=== PATIENT | male | born 1980 | race Caucasian/White ===

== ENCOUNTER 2021-01-06 09:47 | Outpatient (REF) | payer BC, MEDICAID, SELFPAY | END 2021-01-06 09:48 | disposition home or self-care (01) | LOC: HO.LAB 09:47 | PROVIDERS: PCP Internal Medicine; Visit Provider Internal Medicine | DX: Z20.822 Contact with and (suspected) exposure to COVID-19 (principal) | CPT/HCPCS: 36415; C9803; U0003; U0005 ==

== ENCOUNTER 2021-04-01 14:21 | Outpatient (REF) | payer BC, MEDICAID, SELFPAY ==
--- NOTE | ~2021-04-01 | CT_ITS ---
EXAMINATION: CT ANGIOGRAM CHEST CLINICAL INFORMATION: Aortic disorder COMPARISON: None TECHNIQUE: Multiple axial images were obtained through the chest after the administration of 50 mL of Omnipaque 350 intravenous contrast. Extensive vascular post-processing including two-dimensional and three-dimensional reformatted images were created and reviewed on an independent workstation. This CT examination was performed using dose optimization techniques as appropriate, variously including the following: *Automated exposure control *Adjustment of mA and/or kV according to patient size (this includes techniques or standardized protocols for targeted exams where dose is matched to indication/reason for exam; i.e. extremities or head) *Use of iterative reconstruction technique DLP: 161 mGy-cm FINDINGS: The ascending aorta measures 4.9 x 4.8 cm just above the root on axial image 26/5. The cervicocerebral arch is normal three-vessel branching. The descending thoracic aorta measures 2.5 x 2.5 cm. The heart size is normal. The central trachea and bronchi are widely patent. The thyroid lobes are symmetrical and normal. No pericardial effusion seen. No abnormal size mediastinal or hilar lymph nodes seen. The lungs are well-expanded and clear of acute process. There is no pulmonary nodule, mass or consolidation. No groundglass density seen. There is no pleural effusion or thickening. The axilla and chest wall appears unremarkable. Imaging through the upper abdomen reveals visualized liver, spleen, pancreas and bilateral adrenal glands are unremarkable. Bone windows reveal no lytic or sclerotic process. CT/CT angio chest IMPRESSION: Ascending aortic aneurysm. Normal 3 vessel thoracic arch branching. No evidence of PE. Clear lungs.
[2021-04-01] MEDS: iohexoL 350 MG/ML 100 ML INFUS..BTL IV (15:12)
== END 2021-04-01 14:22 | disposition home or self-care (01) ==
LOC: HO.CT 14:21
PROVIDERS: PCP Internal Medicine; Visit Provider Internal Medicine Cardiovascular Disease
DX: I77.9 Disorder of arteries and arterioles, unspecified (principal)
CPT/HCPCS: 71275; Q9967

== ENCOUNTER → 2021-05-06 15:24 | Outpatient (REF) | payer BC, MEDICAID, SELFPAY | LOC: HO.SL 15:24 | PROVIDERS: PCP Internal Medicine Rheumatology; Visit Provider Internal Medicine Cardiovascular Disease | DX: R06.83 Snoring (principal); I77.9 Disorder of arteries and arterioles, unspecified; I10 Essential (primary) hypertension | CPT/HCPCS: 95806 ==

== ENCOUNTER → 2021-12-09 08:40 | Outpatient (BNVA) | payer BC, MEDICAID, SELFPAY | PROVIDERS: PCP Internal Medicine Rheumatology; Visit Provider Internal Medicine | DX: Z95.2 Presence of prosthetic heart valve (principal); Z51.81 Encounter for therapeutic drug level monitoring; Z79.01 Long term (current) use of anticoagulants | CPT/HCPCS: 85610; 99202 ==

== ENCOUNTER → 2021-12-23 08:26 | Outpatient (BNVA) | payer BC, MEDICAID, SELFPAY | PROVIDERS: PCP Internal Medicine; Visit Provider Internal Medicine | DX: Z95.2 Presence of prosthetic heart valve (principal); Z51.81 Encounter for therapeutic drug level monitoring; Z79.01 Long term (current) use of anticoagulants | CPT/HCPCS: 85610; 99211 ==

== ENCOUNTER → 2021-12-28 08:34 | Outpatient (BNVA) | payer BC, MEDICAID, SELFPAY | PROVIDERS: PCP Internal Medicine; Visit Provider Internal Medicine | DX: Z95.2 Presence of prosthetic heart valve (principal); Z51.81 Encounter for therapeutic drug level monitoring; Z79.01 Long term (current) use of anticoagulants | CPT/HCPCS: 85610; 99211 ==

== ENCOUNTER → 2022-01-06 08:18 | Outpatient (BNVA) | payer BC, MEDICAID, SELFPAY | PROVIDERS: PCP Internal Medicine; Visit Provider Internal Medicine | DX: Z95.2 Presence of prosthetic heart valve (principal); Z51.81 Encounter for therapeutic drug level monitoring; Z79.01 Long term (current) use of anticoagulants | CPT/HCPCS: 85610; 99211 ==

== ENCOUNTER → 2022-01-20 08:21 | Outpatient (BNVA) | payer BC, MEDICAID, SELFPAY | PROVIDERS: PCP Internal Medicine; Visit Provider Internal Medicine | DX: Z95.2 Presence of prosthetic heart valve (principal); Z51.81 Encounter for therapeutic drug level monitoring; Z79.01 Long term (current) use of anticoagulants | CPT/HCPCS: 85610; 99211 ==

== ENCOUNTER → 2022-02-08 08:17 | Outpatient (BNVA) | payer BC, MEDICAID, SELFPAY | PROVIDERS: PCP Internal Medicine; Visit Provider Internal Medicine | DX: Z95.2 Presence of prosthetic heart valve (principal); Z79.01 Long term (current) use of anticoagulants; Z51.81 Encounter for therapeutic drug level monitoring | CPT/HCPCS: 85610; 99211 ==

== ENCOUNTER → 2022-03-03 08:42 | Outpatient (BNVA) | payer BC, MEDICAID, SELFPAY | PROVIDERS: PCP Internal Medicine; Visit Provider Internal Medicine | DX: Z95.2 Presence of prosthetic heart valve (principal); Z79.01 Long term (current) use of anticoagulants; Z51.81 Encounter for therapeutic drug level monitoring | CPT/HCPCS: 85610; 99211 ==

== ENCOUNTER → 2022-03-24 08:39 | Outpatient (BNVA) | payer BC, MEDICAID, SELFPAY | PROVIDERS: PCP Internal Medicine; Visit Provider Internal Medicine | DX: Z95.2 Presence of prosthetic heart valve (principal); Z79.01 Long term (current) use of anticoagulants; Z51.81 Encounter for therapeutic drug level monitoring | CPT/HCPCS: 85610; 99211 ==

== ENCOUNTER → 2022-04-07 08:57 | Outpatient (BNVA) | payer BC, MEDICAID, SELFPAY | PROVIDERS: PCP Internal Medicine; Visit Provider Internal Medicine | DX: Z95.2 Presence of prosthetic heart valve (principal); Z79.01 Long term (current) use of anticoagulants; Z51.81 Encounter for therapeutic drug level monitoring | CPT/HCPCS: 85610; 99211 ==

== ENCOUNTER → 2022-04-21 08:50 | Outpatient (BNVA) | payer BC, MEDICAID, SELFPAY | PROVIDERS: PCP Internal Medicine; Visit Provider Internal Medicine | DX: Z95.2 Presence of prosthetic heart valve (principal); Z79.01 Long term (current) use of anticoagulants; Z51.81 Encounter for therapeutic drug level monitoring | CPT/HCPCS: 85610; 99211 ==

== ENCOUNTER → 2022-05-12 08:07 | Outpatient (BNVA) | payer BC, MEDICAID, SELFPAY | PROVIDERS: PCP Internal Medicine; Visit Provider Internal Medicine | DX: Z95.2 Presence of prosthetic heart valve (principal); Z51.81 Encounter for therapeutic drug level monitoring; Z79.01 Long term (current) use of anticoagulants | CPT/HCPCS: 85610; 99211 ==

== ENCOUNTER → 2022-05-26 08:41 | Outpatient (BNVA) | payer BC, MEDICAID, SELFPAY | PROVIDERS: PCP Internal Medicine; Visit Provider Internal Medicine | DX: Z95.2 Presence of prosthetic heart valve (principal); Z51.81 Encounter for therapeutic drug level monitoring; Z79.01 Long term (current) use of anticoagulants | CPT/HCPCS: 85610; 99211 ==

== ENCOUNTER → 2022-06-09 08:36 | Outpatient (BNVA) | payer BC, MEDICAID, SELFPAY | PROVIDERS: PCP Internal Medicine; Visit Provider Internal Medicine | DX: Z95.2 Presence of prosthetic heart valve (principal); Z51.81 Encounter for therapeutic drug level monitoring; Z79.01 Long term (current) use of anticoagulants | CPT/HCPCS: 85610; 99211 ==

== ENCOUNTER → 2022-06-23 08:47 | Outpatient (BNVA) | payer BC, MEDICAID, SELFPAY | PROVIDERS: PCP Internal Medicine; Visit Provider Internal Medicine | DX: Z95.2 Presence of prosthetic heart valve (principal); Z51.81 Encounter for therapeutic drug level monitoring; Z79.01 Long term (current) use of anticoagulants | CPT/HCPCS: 85610; 99211 ==

== ENCOUNTER → 2022-07-07 08:42 | Outpatient (BNVA) | payer BC, MEDICAID, SELFPAY | PROVIDERS: PCP Internal Medicine; Visit Provider Internal Medicine | DX: Z95.2 Presence of prosthetic heart valve (principal); Z51.81 Encounter for therapeutic drug level monitoring; Z79.01 Long term (current) use of anticoagulants | CPT/HCPCS: 85610; 99211 ==

== ENCOUNTER → 2022-07-28 08:47 | Outpatient (BNVA) | payer BC, MEDICAID, SELFPAY | PROVIDERS: PCP Internal Medicine; Visit Provider Internal Medicine | DX: Z95.2 Presence of prosthetic heart valve (principal); Z51.81 Encounter for therapeutic drug level monitoring; Z79.01 Long term (current) use of anticoagulants | CPT/HCPCS: 85610; 99211 ==

== ENCOUNTER → 2022-08-18 08:42 | Outpatient (BNVA) | payer BC, MEDICAID, SELFPAY | PROVIDERS: PCP Internal Medicine; Visit Provider Internal Medicine | DX: Z95.2 Presence of prosthetic heart valve (principal); Z79.01 Long term (current) use of anticoagulants; Z51.81 Encounter for therapeutic drug level monitoring | CPT/HCPCS: 85610; 99211 ==

== ENCOUNTER → 2022-09-22 08:40 | Outpatient (BNVA) | payer BC, MEDICAID, SELFPAY | PROVIDERS: PCP Internal Medicine; Visit Provider Internal Medicine | DX: Z95.2 Presence of prosthetic heart valve (principal); Z79.01 Long term (current) use of anticoagulants; Z51.81 Encounter for therapeutic drug level monitoring | CPT/HCPCS: 85610; 99211 ==

== ENCOUNTER → 2022-10-13 08:39 | Outpatient (BNVA) | payer BC, MEDICAID, SELFPAY | PROVIDERS: PCP Internal Medicine; Visit Provider Internal Medicine | DX: Z95.2 Presence of prosthetic heart valve (principal); Z51.81 Encounter for therapeutic drug level monitoring; Z79.01 Long term (current) use of anticoagulants | CPT/HCPCS: 85610; 99211 ==

== ENCOUNTER → 2022-11-03 08:42 | Outpatient (BNVA) | payer BC, MEDICAID, SELFPAY | PROVIDERS: PCP Internal Medicine; Visit Provider Internal Medicine | DX: Z95.2 Presence of prosthetic heart valve (principal); Z79.01 Long term (current) use of anticoagulants; Z51.81 Encounter for therapeutic drug level monitoring | CPT/HCPCS: 85610; 99211 ==

== ENCOUNTER → 2022-11-17 08:49 | Outpatient (BNVA) | payer BC, MEDICAID, SELFPAY | PROVIDERS: PCP Internal Medicine; Visit Provider Internal Medicine | DX: Z95.2 Presence of prosthetic heart valve (principal); Z79.01 Long term (current) use of anticoagulants; Z51.81 Encounter for therapeutic drug level monitoring | CPT/HCPCS: 85610; 99211 ==

== ENCOUNTER → 2022-12-01 08:45 | Outpatient (BNVA) | payer BC, MEDICAID, SELFPAY | PROVIDERS: PCP Internal Medicine; Visit Provider Internal Medicine | DX: Z95.2 Presence of prosthetic heart valve (principal); Z51.81 Encounter for therapeutic drug level monitoring; Z79.01 Long term (current) use of anticoagulants | CPT/HCPCS: 85610 ==

== ENCOUNTER → 2022-12-22 08:51 | Outpatient (BNVA) | payer BC, MEDICAID, SELFPAY | PROVIDERS: PCP Internal Medicine; Visit Provider Internal Medicine | DX: Z95.2 Presence of prosthetic heart valve (principal); Z51.81 Encounter for therapeutic drug level monitoring; Z79.01 Long term (current) use of anticoagulants | CPT/HCPCS: 85610; 99211 ==

== ENCOUNTER → 2023-01-12 07:59 | Outpatient (BNVA) | payer BC, MEDICAID, SELFPAY | PROVIDERS: PCP Internal Medicine; Visit Provider Internal Medicine | DX: Z95.2 Presence of prosthetic heart valve (principal); Z51.81 Encounter for therapeutic drug level monitoring; Z79.01 Long term (current) use of anticoagulants | CPT/HCPCS: 85610; 99211 ==

== ENCOUNTER → 2023-02-09 09:11 | Outpatient (BNVA) | payer BC, MEDICAID, SELFPAY | PROVIDERS: PCP Internal Medicine; Visit Provider Internal Medicine | DX: Z95.2 Presence of prosthetic heart valve (principal); Z51.81 Encounter for therapeutic drug level monitoring; Z79.01 Long term (current) use of anticoagulants | CPT/HCPCS: 85610; 99211 ==

== ENCOUNTER → 2023-02-18 08:44 | Outpatient (BNVA) | payer BC, MEDICAID, SELFPAY | PROVIDERS: PCP Internal Medicine; Visit Provider Internal Medicine | DX: Z95.2 Presence of prosthetic heart valve (principal); Z51.81 Encounter for therapeutic drug level monitoring; Z79.01 Long term (current) use of anticoagulants | CPT/HCPCS: 85610; 99211 ==

== ENCOUNTER → 2023-03-02 08:51 | Outpatient (BNVA) | payer BC, MEDICAID, SELFPAY | PROVIDERS: PCP Internal Medicine; Visit Provider Internal Medicine | DX: Z95.2 Presence of prosthetic heart valve (principal); Z51.81 Encounter for therapeutic drug level monitoring; Z79.01 Long term (current) use of anticoagulants | CPT/HCPCS: 85610; 99211 ==

== ENCOUNTER → 2023-03-23 08:51 | Outpatient (BNVA) | payer BC, MEDICAID, SELFPAY | PROVIDERS: PCP Internal Medicine; Visit Provider Internal Medicine | DX: Z51.81 Encounter for therapeutic drug level monitoring (principal); Z79.01 Long term (current) use of anticoagulants; Z95.2 Presence of prosthetic heart valve | CPT/HCPCS: 85610; 99211 ==

== ENCOUNTER → 2023-04-13 08:51 | Outpatient (BNVA) | payer BC, OTHER, SELFPAY | PROVIDERS: PCP Internal Medicine; Visit Provider Internal Medicine | DX: Z95.2 Presence of prosthetic heart valve (principal); Z51.81 Encounter for therapeutic drug level monitoring; Z79.01 Long term (current) use of anticoagulants | CPT/HCPCS: 85610; 99211 ==

== ENCOUNTER → 2023-05-11 09:34 | Outpatient (BNVA) | payer BC, OTHER, SELFPAY | PROVIDERS: PCP Internal Medicine; Visit Provider Internal Medicine | DX: Z95.2 Presence of prosthetic heart valve (principal); Z51.81 Encounter for therapeutic drug level monitoring; Z79.01 Long term (current) use of anticoagulants | CPT/HCPCS: 85610; 99211 ==

== ENCOUNTER 2023-06-08 08:59 | Outpatient (AMB) | payer BC, MEDICAID, SELFPAY ==
[2023-06-08 09:10] LABS: Prothrombin Time Whole Bld POC 34.3 sec (11.1-13.5); ~PT, ~INR - Anti Coag Clinic 2.9 (0.9-1.1)
--- NOTE | 2023-06-08 09:13 | MHC.OFFVISCO ---
Intake Intake Visit Reasons: Anticoagulation Allergies No Known Allergies Allergy (Verified 06/08/23 09:04) Medication List - Last Reconciled 06/08/23 by Aislinn Lopez, RN metoprolol tartrate 50 mg PO BID warfarin 4 mg See Protocol PO DAILY Nursing Note NO CP,SOB,DIET/MED CHANGES,FALLS OR SX OF BLEEDING. CONTINUE PRESENT DOSE AND FOLLOW-UP IN WEEKS GOOD UNDERSTANDING OF DOSING INSTRL. Anti-Coag Initial Assessment Social Hx Patient Tobacco Use Status: Never used Tobacco alcohol intake: current Alcohol intake frequency: a few times a week Cardiovascular Hx: Other (PALPITATIONS, AORTIC INSUFF, ATRIAL FLUTTER, CARDIOVERSION, AORTIC VALVE REPLACE,PVD) Lung Disease HX: Other (SLEEP APNEA) GI Hx: Other (RECTAL SURG) Cancer HX: No Psych. Illness/Depression: No Coding Level of Care Code Est Patient Level 1 Diagnoses Current use of anticoagulant therapy Z79.01 Assessment & Plan Assessment & Plan (1) Current use of anticoagulant therapy: Code(s): Z79.01 - intermediate (current) use of anticoagulants Category: Medical
== END 2023-06-08 09:15 | disposition home or self-care (01) ==
LOC: HO.ACS 08:59
PROVIDERS: PCP Internal Medicine; Visit Provider Internal Medicine
DX: Z79.01 Long term (current) use of anticoagulants (principal)

== ENCOUNTER → 2023-06-08 08:59 | Outpatient (BNVA) | payer BC, OTHER, SELFPAY | PROVIDERS: PCP Internal Medicine; Visit Provider Internal Medicine | DX: Z51.81 Encounter for therapeutic drug level monitoring (principal); Z79.01 Long term (current) use of anticoagulants; Z95.2 Presence of prosthetic heart valve | CPT/HCPCS: 85610; 99211 ==

== ENCOUNTER 2023-07-05 15:18 | Outpatient (AMB) | payer BC, MEDICAID, SELFPAY ==
--- NOTE | 2023-07-05 15:24 | MHC.OFFVISCO ---
Intake Intake Visit Reasons: Anticoagulation Allergies No Known Allergies Allergy (Verified 07/05/23 15:18) Medication List - Last Reconciled 07/05/23 by Karolina Mcfadden RN metoprolol tartrate 50 mg PO BID warfarin 4 mg See Protocol PO DAILY Nursing Note INR 4.0-?? out of therapeutic range Medications and supplements reviewed Patient status: pt states missed a dose last week and dose adjusted, also had tylenol for headache last week Medications or supplements: no changes Diet: good Denies any signs and symptoms of bleeding or clotting or unusual bruising Bleeding, bruising, clotting discussed Nutritional guidance given: eat greens today and tomm, no reds for 2 days Dose: already took warfarin today, reduce tomm to 2mg then cont 4mg x 3 ,6mg x 4 F/U INR Date : 2 weeks Patient verbalizing understanding of instructions given. Anti-Coag Initial Assessment Social Hx Patient Tobacco Use Status: Never used Tobacco alcohol intake: current Alcohol intake frequency: a few times a week Cardiovascular Hx: Other (PALPITATIONS, AORTIC INSUFF, ATRIAL FLUTTER, CARDIOVERSION, AORTIC VALVE REPLACE,PVD) Lung Disease HX: Other (SLEEP APNEA) GI Hx: Other (RECTAL SURG) Cancer HX: No Psych. Illness/Depression: No Coding Level of Care Code Est Patient Level 1 Diagnoses Current use of anticoagulant therapy Z79.01 Assessment & Plan Assessment & Plan (1) Current use of anticoagulant therapy: Code(s): Z79.01 - detention (current) use of anticoagulants Category: Medical
[2023-07-05 15:25] LABS: Prothrombin Time Whole Bld POC 48.3 sec (11.1-13.5)
== END 2023-07-05 15:32 | disposition home or self-care (01) ==
LOC: HO.ACS 15:18
PROVIDERS: PCP Internal Medicine; Visit Provider Internal Medicine
DX: Z79.01 Long term (current) use of anticoagulants (principal)

== ENCOUNTER → 2023-07-05 15:18 | Outpatient (BNVA) | payer BC, MEDICAID, SELFPAY | PROVIDERS: PCP Internal Medicine; Visit Provider Internal Medicine | DX: Z95.2 Presence of prosthetic heart valve (principal); Z51.81 Encounter for therapeutic drug level monitoring; Z79.01 Long term (current) use of anticoagulants | CPT/HCPCS: 85610; 99211 ==

== ENCOUNTER 2023-07-19 15:22 | Outpatient (AMB) | payer BC, MEDICAID, SELFPAY ==
--- NOTE | 2023-07-19 15:28 | MHC.OFFVISCO ---
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 Bleeding, bruising, clotting discussed Nutritional guidance given - cooked greens provide more absorbable vit k to help lower the INR , review food list - have just a little more greens to keep INR in range Dose: keep same 4mg x 3 days/ 6mg x 4 days F/U INR: 1 month per pt request due to work and family Patient verbalizes understanding of instructions given Anti-Coag Initial Assessment Social Hx Patient Tobacco Use Status: Never used Tobacco alcohol intake: current Alcohol intake frequency: a few times a week Cardiovascular Hx: Other (PALPITATIONS, AORTIC INSUFF, ATRIAL FLUTTER, CARDIOVERSION, AORTIC VALVE REPLACE,PVD) Lung Disease HX: Other (SLEEP APNEA) GI Hx: Other (RECTAL SURG) Cancer HX: No Psych. Illness/Depression: No Coding Level of Care Code Est Patient Level 1 Diagnoses Current use of anticoagulant therapy Z79.01 Assessment & Plan Assessment & Plan (1) Current use of anticoagulant therapy: Code(s): Z79.01 - FPC (current) use of anticoagulants Category: Medical
[2023-07-19 15:29] LABS: Prothrombin Time Whole Bld POC 44.6 sec (11.1-13.5); ~PT, ~INR - Anti Coag Clinic 3.7 (0.9-1.1)
== END 2023-07-19 15:37 | disposition home or self-care (01) ==
LOC: HO.ACS 15:22
PROVIDERS: PCP Internal Medicine; Visit Provider Internal Medicine
DX: Z79.01 Long term (current) use of anticoagulants (principal)

== ENCOUNTER → 2023-07-19 15:22 | Outpatient (BNVA) | payer BC, SELFPAY | PROVIDERS: PCP Internal Medicine; Visit Provider Internal Medicine | DX: Z95.2 Presence of prosthetic heart valve (principal); Z51.81 Encounter for therapeutic drug level monitoring; Z79.01 Long term (current) use of anticoagulants | CPT/HCPCS: 85610; 99211 ==

== ENCOUNTER 2023-08-16 15:33 | Outpatient (AMB) | payer BC, SELFPAY ==
--- NOTE | 2023-08-16 15:37 | MHC.OFFVISCO ---
Intake Intake Visit Reasons: Anticoagulation Allergies No Known Allergies Allergy (Verified 08/16/23 15:34) Medication List - Last Reconciled 08/16/23 by Karolina Mcafdden RN metoprolol tartrate 50 mg PO BID warfarin 4 mg See Protocol PO DAILY Nursing Note INR: 2.9- in therapeutic range Medications and supplements reviewed- no changes No changes in health, diet, medications, or supplements, Denies any signs and symptoms of bleeding or bruising or clotting. Bleeding, bruising, clotting discussed Nutritional guidance given Dose: 4mg x 3, 6mg x 4 F/U INR: 4 weeks Patient verbalizes understanding of instructions given pt states due for a dental cleaning, ? deep cleaning, will notify acs when appt is made Anti-Coag Initial Assessment Social Hx Patient Tobacco Use Status: Never used Tobacco alcohol intake: current Alcohol intake frequency: a few times a week Cardiovascular Hx: Other (PALPITATIONS, AORTIC INSUFF, ATRIAL FLUTTER, CARDIOVERSION, AORTIC VALVE REPLACE,PVD) Lung Disease HX: Other (SLEEP APNEA) GI Hx: Other (RECTAL SURG) Cancer HX: No Psych. Illness/Depression: No Coding Level of Care Code Est Patient Level 1 Diagnoses Current use of anticoagulant therapy Z79.01 Assessment & Plan Assessment & Plan (1) Current use of anticoagulant therapy: Code(s): Z79.01 - emt intermediate (current) use of anticoagulants Category: Medical
[2023-08-16 15:39] LABS: Prothrombin Time Whole Bld POC 35.2 sec (11.1-13.5); ~PT, ~INR - Anti Coag Clinic 2.9 (0.9-1.1)
== END 2023-08-16 15:44 | disposition home or self-care (01) ==
LOC: HO.ACS 15:33
PROVIDERS: PCP Internal Medicine; Visit Provider Internal Medicine
DX: Z79.01 Long term (current) use of anticoagulants (principal)

== ENCOUNTER → 2023-08-16 15:33 | Outpatient (BNVA) | payer BC, SELFPAY | PROVIDERS: PCP Internal Medicine; Visit Provider Internal Medicine | DX: Z95.2 Presence of prosthetic heart valve (principal); Z51.81 Encounter for therapeutic drug level monitoring; Z79.01 Long term (current) use of anticoagulants | CPT/HCPCS: 85610; 99211 ==

== ENCOUNTER 2023-08-18 09:03 | Outpatient (REF) | payer BC, SELFPAY ==
[2023-08-18 11:52] LABS: Anion Gap 14 (12-20); Blood Urea Nitrogen 11 mg/dL (9-16); Calcium 9.6 mg/dL (8.4-10.2); Carbon Dioxide 25 mmol/L (22-29); Chloride 105 mmol/L (96-108); Estimated Glomerular Filt Rate > 60; Glucose Random 89 mg/dL (60-115); Potassium 4.4 mmol/L (3.3-5.1); Sodium 140 mmol/L (135-145)
[2023-08-18 11:54] LABS: Cholesterol 212 mg/dL (<200); HDL Cholesterol 39 mg/dL (>40); LDL Cholesterol Calculated 151 mg/dL (<100); Triglycerides 111 mg/dL (<150)
[2023-08-18 12:04] LABS: Estimated Average Glucose 97 mg/dL
[2023-08-18 12:12] LABS: TSH reflex Free T4 1.36 uIU/mL (0.32-4.0); Vitamin D 25-OH Total 21.3 ng/mL (>30)
[2023-08-18 13:47] LABS: Reflex LDLD? No
== END 2023-08-18 09:04 | disposition home or self-care (01) ==
LOC: HO.HHCL 09:03
PROVIDERS: Visit Provider Internal Medicine
DX: N48.1 Balanitis (principal); E78.00 Pure hypercholesterolemia, unspecified; M25.562 Pain in left knee; Z95.2 Presence of prosthetic heart valve; E55.9 Vitamin D deficiency, unspecified
CPT/HCPCS: 36415; 80048; 80061; 82306; 83036; 84443

== ENCOUNTER 2023-09-13 15:29 | Outpatient (AMB) | payer BC, SELFPAY ==
--- NOTE | 2023-09-13 15:29 | MHC.OFFVISCO ---
Intake Intake Visit Reasons: Anticoagulation Allergies No Known Allergies Allergy (Verified 09/13/23 15:29) Nursing Note INR: 3.0- in therapeutic range of 2.5-3.5 Medications and supplements reviewed- no changes No changes in health, diet, medications, or supplements, Denies any signs and symptoms of bleeding or bruising or clotting. Bleeding, bruising, clotting discussed Nutritional guidance given Dose: 4mg x 3, 6mg x 4 F/U INR: 4 weeks Patient verbalizes understanding of instructions given Anti-Coag Initial Assessment Social Hx Patient Tobacco Use Status: Never used Tobacco alcohol intake: current Alcohol intake frequency: a few times a week Cardiovascular Hx: Other (PALPITATIONS, AORTIC INSUFF, ATRIAL FLUTTER, CARDIOVERSION, AORTIC VALVE REPLACE,PVD) Lung Disease HX: Other (SLEEP APNEA) GI Hx: Other (RECTAL SURG) Cancer HX: No Psych. 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
[2023-09-13 15:35] LABS: Prothrombin Time Whole Bld POC 35.8 sec (11.1-13.5)
== END 2023-09-13 15:41 | disposition home or self-care (01) ==
LOC: HO.ACS 15:29
PROVIDERS: PCP Internal Medicine; Visit Provider Internal Medicine
DX: Z79.01 Long term (current) use of anticoagulants (principal)

== ENCOUNTER → 2023-09-13 15:29 | Outpatient (BNVA) | payer BC, SELFPAY | PROVIDERS: PCP Internal Medicine; Visit Provider Internal Medicine | DX: Z95.2 Presence of prosthetic heart valve (principal); Z51.81 Encounter for therapeutic drug level monitoring; Z79.01 Long term (current) use of anticoagulants | CPT/HCPCS: 85610; 99211 ==

== ENCOUNTER 2023-10-10 15:49 | Outpatient (AMB) | payer BC, SELFPAY ==
--- NOTE | 2023-10-10 15:40 | MHC.OFFVISCO ---
Intake Intake Visit Reasons: Anticoagulation Allergies No Known Allergies Allergy (Verified 10/10/23 15:27) Medication List - Last Reconciled 10/10/23 by Maria Isabel Austin RN metoprolol tartrate 50 mg PO BID warfarin 4 mg See Protocol PO DAILY Nursing Note Amb to [facility] feeling well Medications and supplements reviewed No changes in health, diet, medications, or supplements sts having dental cleaning 10/27, will be taking antibiotic prior to procedure, not sure if needs INR day before, pt to call dentist with todays INR and will call us if needs INR / Denies any unusual signs and symptoms of bruising, bleeding Denies any new Chest pain, SOB, or clotting INR: 2.5 in therapeutic range Nutritional guidance given: balance greens and reds in diet, be aware of the reds that raise over giving and have moderate green evening before dental cleaning Dose: continue usual dosing; 4mg x 3 days and 6mg x 4 days F/U INR: booked 4 weeks, will call if needs 6 INR Patient verbalizes understanding of instructions given with accurate read back/ teach back of dosing Anti-Coag Initial Assessment Social Hx Patient Tobacco Use Status: Never used Tobacco alcohol intake: current Alcohol intake frequency: a few times a week Cardiovascular Hx: Other Lung Disease HX: Other GI Hx: Other Cancer HX: No Psych. Illness/Depression: No Questionnaires HAS-BLED Does the patient had uncontrolled Hypertension?: No Does the patient have renal disease?: No Does the patient have liver disease?: No Does the patient have a history of stroke?: No Has the patient had major bleeding or predisposition to bleeding?: No Does the patient have labile INRs?: No Is the patient over 65 years of age?: No Is the patient on medications that gives them a predisposition to bleeding?: Yes Does the patient use alcohol?: Yes HAS-BLED Score: 2 CHADSVASC Age: <65 Gender: Male Does the patient have a history of CHF?: No Does the patient have a history of Hypertension?: No Does the patient have a history of Stroke/TIA/Thromboembolism?: No Does the patient have a history of Vascular Disease (prior PR, PAD or aortic plaque)?: Yes Does the patient have a history of Diabetes?: No CHADS VACS Score: 1 [place] Prediction Score Rsk VTE Active Cancer: No Previous VTE, excluding superficial vein thrombosis: No Reduced mobility: No Already known Thrombophilic Condition: Yes With-in last month Trauma and/or Surgery: No Elderly 70 year or older: No Heart and/or Respiratory Failure: No Acute Myocardial infarction and/or Ischemic Stroke: No Acute Infection and/or Rheumatologic Disorder: No Obesity (BMI 30 or greater): No Ongoing Hormonal Treatment: No Score: 3 [place] Score less than 4; Low Risk of VTE [place] Score 4 or greater; High Risk of VTE Coding Level of Care Code Est Patient Level 1 Time Spent (min) 15
[2023-10-11 12:40] LABS: Prothrombin Time Whole Bld POC 32.8 sec (11.1-13.5); ~PT, ~INR - Anti Coag Clinic 2.7 (0.9-1.1)
== END 2023-10-10 15:51 | disposition home or self-care (01) ==
LOC: HO.ACS 15:49
PROVIDERS: PCP Internal Medicine; Visit Provider Internal Medicine
DX: Z79.01 Long term (current) use of anticoagulants (principal)

== ENCOUNTER → 2023-10-10 15:49 | Outpatient (BNVA) | payer BC, SELFPAY | PROVIDERS: PCP Internal Medicine; Visit Provider Internal Medicine | DX: Z95.2 Presence of prosthetic heart valve (principal); Z51.81 Encounter for therapeutic drug level monitoring; Z79.01 Long term (current) use of anticoagulants | CPT/HCPCS: 85610; 99211 ==

== ENCOUNTER 2023-10-27 09:15 | Outpatient (AMB) | payer BC, SELFPAY ==
--- NOTE | 2023-10-27 09:18 | MHC.OFFVIS ---
Intake Vital Signs 10/27/23 09:24 Height 5 ft 11 in Weight 201 lb BMI 28.0 BP 138/63 Blood Pressure Location Rt brachial Position Sitting Pulse 51 Intake Visit Reasons: rectal anal ulcer Intake Note: This patient presents fro an assessment for rectal anal ulcer. Patient c/o; reports no complaints at this time. 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 The patient actually says that he has problem is an ulcer in the glans of the penis. He describes pain with sexual intercourse. He denies bleeding. He denies any problems with regards to his anus and rectum. 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 [employer] Current occupational exposures/hazards: No Review of Systems Const Denies chills and Denies fever(s) Card Denies chest pain, Denies dyspnea and Denies dyspnea on exertion Resp Denies cough, Denies dyspnea and Denies dyspnea on exertion GI Denies hematochezia and Denies change in bowel habits Details: Painful intercourse Denies hematuria and Denies difficulty urinating Musc Denies back pain and Denies limited range of motion Neuro Denies focal weakness and Denies convulsions Psych Denies depression and Denies mood swings Physical Exam Vital Signs: Last Vital Signs Pulse 51 10/27/23 09:24 BP 138/63 10/27/23 09:24 BMI result Body Mass Index 28.0 Const General: comfortable and no acute distress Orientation/consciousness: patient oriented x3 Neck Neck: Yes no lymphadenopathy Resp Auscultation: clear to auscultation bilaterally Cardio Rhythm: regular rhythm GI Palpation (GI): Soft to palpation, nontender and no guarding Other: Severe patchy redness, tenderness of the glans penis Neuro General: patient oriented x3 Assessment & Plan Assessment & Plan (1) Penile cellulitis: Code(s): N48.22 - Cellulitis of corpus cavernosum and penis Plan: His redness, pain and burning is actually on the glans penis. He denies any pain with this anus I have arranged for him to be seen by Urology. Coding Level of Care Code New Pt Level 3 (87613) Diagnoses Penile cellulitis N48.22
[2023-10-27 09:24] VITALS: BP 138/63; PULSE 51; BMI 28.0
== END 2023-10-27 10:05 | disposition home or self-care (01) ==
PROVIDERS: PCP Internal Medicine; Referring Provider Internal Medicine; Visit Provider Surgery
DX: N48.22 Cellulitis of corpus cavernosum and penis (principal)
CPT/HCPCS: 99203

== ENCOUNTER → 2023-10-27 09:15 | Outpatient (BNVA) | payer BC, SELFPAY | PROVIDERS: PCP Internal Medicine; Referring Provider Internal Medicine; Visit Provider Surgery ==

== ENCOUNTER 2023-11-01 15:24 | Outpatient (AMB) | payer BC, SELFPAY ==
--- NOTE | 2023-11-01 15:35 | MHC.OFFVIS ---
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 Mckinney. He has a PMH of aortic valve proceed placement on anticoagulation, and hypercholesteremia. He presents to the office today as a new patient for a penile rash. In discussion with the patient today reports to be doing and feeling well. He reports penile rash started over 7 months ago and feels at times rash seems to be improving however most recently has been experiencing discomfort to the penile area. In assessment of the patient today the penis is uncircumcised, penile gland appears reddened however no open areas, lesions, and or drainage noted. Discussed at length potential causes for balanitis. He otherwise denies any bothersome urinary issues. He does endorse to continually being sexually active with his who is approximately 7 months . In office urinalysis results reviewed with the patient today. 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 Current occupational exposures/hazards: No Review of Systems Const Reports as per HPI Eyes Reports no additional complaints ENT Reports no additional complaints Card Reports as per HPI Resp Reports no additional complaints GI Reports no additional complaints Reports as per HPI Musc Reports no additional complaints Neuro Reports no additional complaints Psych Reports no additional complaints Endo Reports no additional complaints Elio/Lymph Reports no additional complaints Aller/Immun Reports no additional complaints Physical Exam Const General: cooperative, healthy appearing, comfortable, no acute distress, well developed, alert and awake Orientation/consciousness: patient oriented x3 Limitations: no limitations HEENT Head: Yes normal to inspection, Yes normocephalic and Yes atraumatic Ears: hearing grossly normal bilaterally Eyes General: appearance normal, both eyes and all related structures Neck Neck: Yes normal visual inspection and Yes trachea midline Chest Chest palpation & inspection: normal inspection of the chest Resp Effort & Inspection: normal respiratory effort and able to speak in complete sentences Cardio Rate: regular rate GI Inspection: Yes normal to inspection General: Yes no CVA tenderness Penis: uncircumcised and erythematous (penile gland; as noted in HPI) Meatus: meatus normal Scrotum: scrotum normal Testes: Testes normal Back/Spine/Pelvis Back: no CVA tenderness Skin General skin exam: no rashes or lesions noted Neuro General: patient oriented x3 Extrem General: Yes normal to inspection Psych Appearance: grossly normal and well kempt Mental Status: mental status grossly normal Speech and movement: Normal speech and movement present and Clear speech present Affect: normal affect Attitude: cooperative Thought process: Normal thought process present Thought content: Normal thought content present Insight: Fair insight present (Psych) Judgement: Fair judgement present (Psych) Results AMB Urinalysis, Automated UA Leukoctes 0 Vinay/uL Last Edit by [employer] on 11/01/23 15:47 UA Nitrite Negative Last Edit by [employer] on 11/01/23 15:47 UA Urobilinogen 0.2 mg/dL Last Edit by [employer] on 11/01/23 15:47 UA Protein 15 mg/dL Last Edit by [employer] on 11/01/23 15:47 UA pH 6.0 Last Edit by [employer] on 11/01/23 15:47 UA Blood 10 Colton/uL Last Edit by [employer] on 11/01/23 15:47 UA Specific Cecil 1.025 Last Edit by [employer] on 11/01/23 15:47 UA Ketone Negative Last Edit by [employer] on 11/01/23 15:47 UA Bilirubin 0 mg/dL Last Edit by [employer] on 11/01/23 15:47 UA Glucose 0 mg/dL Last Edit by [employer] on 11/01/23 15:47 Results Reviewed Results Reviewed: Laboratory Last Values Urine pH (Auto) 6.0 11/01/23 15:42 Specific Cecil (Auto) 1.025 11/01/23 15:42 Urine Protein (Auto) 15 mg/dL 11/01/23 15:42 Glucose (UA)(Auto) 0 mg/dL 11/01/23 15:42 Urine Ketones (Auto) Negative 11/01/23 15:42 Urine Blood (Auto) 10 Colton/uL 11/01/23 15:42 Urine Nitrite (Auto) Negative 11/01/23 15:42 Urine Bilirubin (Auto) 0 mg/dL 11/01/23 15:42 Urine Urobilinogen (Auto) 0.2 mg/dL 11/01/23 15:42 Leukocyte Esterase (Auto) 0 Vinay/uL 11/01/23 15:42 Assessment & Plan Assessment & Plan (1) Balanitis: Code(s): N48.1 - Balanitis Plan In office urinalysis results reviewed with patient; as noted above Start clotrimazole-betamethsone as discussed and prescribed Discussed at length causes of balanits at length. Discussed gently washing penis with warm water and gently pulling back foreskin. Patient denies any bothersome urinary issues or concerns Follow up in 1 month; or sooner with any issues, concerns, or questions Orders: Orders AMB Urinalysis Automated Today Z13.9 - Encounter for screening, unspecified Medications: New clotrimazole-betamethasone 1-0.05 % Apply thin coat 2 times per day 1 appl topical BID 4 weeks 45 grams 0RF N48.1 - Balanitis Patient Instructions: The patient had an opportunity to ask questions regarding the treatment plan. All questions were answered. Physical exam, labs, and imaging were discussed and reviewed in detail. As well as risks, benefits, and discussion of treatment choices. No major barriers to understanding were identified. The patient expressed understanding and agreement with the above treatment plan. The patient was made aware they should contact our office by phone for worsening of their current condition, the appearance of new symptoms, or with any questions or concerns. Compliance is encouraged with any medications and follow up testing that is ordered. It is a privilege to be allowed the opportunity to participate in? your urological care.? Again, if you have any questions or concerns If you have any questions or concerns please do not hesitate to contact me. The office is [phone]. This note is constructed using voice recognition software. While every effort has been made to ensure accuracy records administrator errors may have been included. Yours sincerely, CHAZ Nicole Coding Level of Care Code New Pt Level 4 (91352) Diagnoses Balanitis N48.1
== END 2023-11-01 15:56 | disposition home or self-care (01) ==
PROVIDERS: PCP Internal Medicine; Visit Provider Nurse Practitioner Family
DX: Z13.9 Encounter for screening, unspecified (principal); N48.1 Balanitis
CPT/HCPCS: 99204

== ENCOUNTER → 2023-11-01 15:24 | Outpatient (BNVA) | payer BC, SELFPAY | PROVIDERS: PCP Internal Medicine; Visit Provider Nurse Practitioner Family | DX: N48.1 Balanitis (principal) | CPT/HCPCS: 81003 ==

== ENCOUNTER 2023-11-07 15:25 | Outpatient (AMB) | payer BC, SELFPAY ==
--- NOTE | 2023-11-07 15:41 | MHC.OFFVISCO ---
Intake Intake Visit Reasons: Anticoagulation Allergies No Known Allergies Allergy (Verified 11/07/23 15:26) Medication List - Last Reconciled 11/07/23 by Isabel Ricks RN clotrimazole-betamethasone 1-0.05 % 1 appl topical BID 4 weeks metoprolol tartrate 50 mg PO BID warfarin 4 mg See Protocol PO DAILY Nursing Note Pt traveling to [facility] when he returns he is going to book a deep dental cleaning, the INR needs to be <2.8 - he is enc to eat greens 3-4 days before his next INR test 12/07/23 - he stated he would INR chk to be 24 hours before cleaning- he is trying to book his dental appt for 12/08/22 INR: 2.5 in therapeutic range Medications and supplements reviewed No changes in health, diet, medications, or supplements, Denies any signs and symptoms of bleeding or bruising or clotting. Bleeding, bruising, clotting discussed Nutritional guidance given Dose: KEEP SAME 4MG X 3 DAYS/ 6MG X 4 DAYS F/U INR: 4 WEEKS Patient verbalizes understanding of instructions given Anti-Coag Initial Assessment Social Hx Patient Tobacco Use Status: Never used Tobacco alcohol intake: current Alcohol intake frequency: a few times a week Cardiovascular Hx: Other Lung Disease HX: Other GI Hx: Other Cancer HX: No Psych. Illness/Depression: No Coding Level of Care Code Est Patient Level 1 Diagnoses Current use of anticoagulant therapy Z79.01 Results AMB INR Fingerstick AMB INR Fingerstick 2.5 Last Edit by Isabel Ricks RN on 11/07/23 15:35 manual entry interface failure Assessment & Plan Assessment & Plan (1) Current use of anticoagulant therapy: Code(s): Z79.01 - custodial (current) use of anticoagulants Category: Medical
[2023-11-07 15:43] LABS: Prothrombin Time Whole Bld POC 29.6 sec (11.1-13.5); ~PT, ~INR - Anti Coag Clinic 2.5 (0.9-1.1)
== END 2023-11-07 15:45 | disposition home or self-care (01) ==
LOC: HO.ACS 15:25
PROVIDERS: PCP Internal Medicine; Visit Provider Internal Medicine
DX: Z79.01 Long term (current) use of anticoagulants (principal)

== ENCOUNTER → 2023-11-07 15:25 | Outpatient (BNVA) | payer BC, SELFPAY | PROVIDERS: PCP Internal Medicine; Visit Provider Internal Medicine | DX: Z95.2 Presence of prosthetic heart valve (principal); Z51.81 Encounter for therapeutic drug level monitoring; Z79.01 Long term (current) use of anticoagulants | CPT/HCPCS: 85610; 99211 ==

== ENCOUNTER 2023-12-07 15:26 | Outpatient (AMB) | payer BC, SELFPAY ==
--- NOTE | 2023-12-07 15:31 | MHC.OFFVISCO ---
Intake Intake Visit Reasons: Anticoagulation Allergies No Known Allergies Allergy (Verified 12/07/23 15:26) Medication List - Last Reconciled 12/07/23 by Karolina Mcfadden RN clotrimazole-betamethasone 1-0.05 % 1 appl topical BID 4 weeks metoprolol tartrate 50 mg PO BID warfarin 4 mg See Protocol PO DAILY Nursing Note INR 2.1-? out of therapeutic range of 2.5-3.5 Medications and supplements reviewed Patient status: pt to have dental appt tomm for cleaning- inr goal per pt is 2.5-2.8 Medications or supplements: no changes Diet: ate greens Denies any signs and symptoms of bleeding or clotting or unusual bruising Bleeding, bruising, clotting discussed Nutritional guidance given: no greens for 2 days Dose: pt req to take 6mg today and will take the 6mg after cleaning tomm am. then cont reg 4mg x 3, 6mg x 4 F/U INR Date : 1 week? Patient verbalizing understanding of instructions given. pt returned from 3 weeks [facility] Anti-Coag Initial Assessment Social Hx Patient Tobacco Use Status: Never used Tobacco alcohol intake: current Alcohol intake frequency: a few times a week Cardiovascular Hx: Other Lung Disease HX: Other GI Hx: Other Cancer HX: No Psych. 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
[2023-12-07 15:32] LABS: Prothrombin Time Whole Bld POC 25.1 sec (11.1-13.5); ~PT, ~INR - Anti Coag Clinic 2.1 (0.9-1.1)
== END 2023-12-07 15:50 | disposition home or self-care (01) ==
LOC: HO.ACS 15:26
PROVIDERS: PCP Internal Medicine; Visit Provider Internal Medicine
DX: Z79.01 Long term (current) use of anticoagulants (principal)

== ENCOUNTER → 2023-12-07 15:26 | Outpatient (BNVA) | payer BC, SELFPAY | PROVIDERS: PCP Internal Medicine; Visit Provider Internal Medicine | DX: Z95.2 Presence of prosthetic heart valve (principal); Z51.81 Encounter for therapeutic drug level monitoring; Z79.01 Long term (current) use of anticoagulants | CPT/HCPCS: 85610; 99211 ==

== ENCOUNTER 2023-12-14 15:25 | Outpatient (AMB) | payer BC, SELFPAY ==
--- NOTE | 2023-12-14 15:32 | MHC.OFFVISCO ---
Intake Intake Visit Reasons: Anticoagulation Allergies No Known Allergies Allergy (Verified 12/14/23 15:28) Medication List - Last Reconciled 12/14/23 by Karolina Mcfadden RN clotrimazole-betamethasone 1-0.05 % 1 appl topical BID 4 weeks metoprolol tartrate 50 mg PO BID warfarin 4 mg See Protocol PO DAILY Nursing Note INR: 2.8- in therapeutic range of 2.5-3.5 Medications and supplements reviewed- no changes No changes in health, diet, medications, or supplements, Denies any signs and symptoms of bleeding or bruising or clotting. Bleeding, bruising, clotting discussed Nutritional guidance given Dose: 4mg x 3, 6mg x 4 F/U INR: 4 weeks Patient verbalizes understanding of instructions given pt s/p dental cleaning - denies bleed post proc Anti-Coag Initial Assessment Social Hx Patient Tobacco Use Status: Never used Tobacco alcohol intake: current Alcohol intake frequency: a few times a week Cardiovascular Hx: Other Lung Disease HX: Other GI Hx: Other Cancer HX: No Psych. Illness/Depression: No Coding Level of Care Code Est Patient Level 1 Diagnoses Current use of anticoagulant therapy Z79.01 Assessment & Plan Assessment & Plan (1) Current use of anticoagulant therapy: Code(s): Z79.01 - long-term (current) use of anticoagulants Category: Medical
[2023-12-14 15:33] LABS: Prothrombin Time Whole Bld POC 33.4 sec (11.1-13.5); ~PT, ~INR - Anti Coag Clinic 2.8 (0.9-1.1)
== END 2023-12-14 15:40 | disposition home or self-care (01) ==
LOC: HO.ACS 15:25
PROVIDERS: PCP Internal Medicine; Visit Provider Internal Medicine
DX: Z79.01 Long term (current) use of anticoagulants (principal)

== ENCOUNTER → 2023-12-14 15:25 | Outpatient (BNVA) | payer BC, SELFPAY | PROVIDERS: PCP Internal Medicine; Visit Provider Internal Medicine | DX: Z95.2 Presence of prosthetic heart valve (principal); Z51.81 Encounter for therapeutic drug level monitoring; Z79.01 Long term (current) use of anticoagulants | CPT/HCPCS: 85610; 99211 ==

== ENCOUNTER 2024-01-10 09:13 | Outpatient (AMB) | payer BC, SELFPAY ==
--- NOTE | 2024-01-10 09:19 | MHC.OFFVISCO ---
Intake Intake Visit Reasons: Anticoagulation Allergies No Known Allergies Allergy (Verified 01/10/24 09:14) Medication List - Last Reconciled 01/10/24 by Karolina Mcfadden RN clotrimazole-betamethasone 1-0.05 % 1 appl topical BID 4 weeks metoprolol tartrate 50 mg PO BID warfarin 4 mg See Protocol PO DAILY Nursing Note INR: 2.7- in therapeutic range of 2.5-3.5 Medications and supplements reviewed- will take antibiotics one hour before deep cleaning sched for tomm - pt to cont reg dosing, pt states poc inr 2.8 or less No changes in health, diet, medications, or supplements, Denies any signs and symptoms of bleeding or bruising or clotting. Bleeding, bruising, clotting discussed Nutritional guidance given Dose: 4mg x 3, 6mg x 4 F/U INR: pt req 4 week f/u Patient verbalizes understanding of instructions given Anti-Coag Initial Assessment Social Hx Patient Tobacco Use Status: Never used Tobacco alcohol intake: current Alcohol intake frequency: a few times a week Cardiovascular Hx: Other Lung Disease HX: Other GI Hx: Other Cancer HX: No Psych. 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
[2024-01-10 09:20] LABS: ~PT, ~INR - Anti Coag Clinic 2.7 (0.9-1.1)
== END 2024-01-10 09:31 | disposition home or self-care (01) ==
LOC: HO.ACS 09:13
PROVIDERS: PCP Internal Medicine; Visit Provider Internal Medicine
DX: Z79.01 Long term (current) use of anticoagulants (principal)

== ENCOUNTER → 2024-01-10 09:13 | Outpatient (BNVA) | payer BC, SELFPAY | PROVIDERS: PCP Internal Medicine; Visit Provider Internal Medicine | DX: Z95.2 Presence of prosthetic heart valve (principal); Z51.81 Encounter for therapeutic drug level monitoring; Z79.01 Long term (current) use of anticoagulants | CPT/HCPCS: 85610; 99211 ==

== ENCOUNTER 2024-01-25 08:49 | Outpatient (AMB) | payer BC, SELFPAY ==
--- NOTE | 2024-01-25 09:14 | MHC.OFFVISCO ---
Intake Intake Visit Reasons: Anticoagulation Allergies No Known Allergies Allergy (Verified 01/25/24 09:02) Medication List - Last Reconciled 01/25/24 by Karolina Mcfadden RN clotrimazole-betamethasone 1-0.05 % 1 appl topical BID 4 weeks metoprolol tartrate 50 mg PO BID warfarin 4 mg See Protocol PO DAILY Nursing Note INR: 3.2- in therapeutic range of 2.5-3.5 Medications and supplements reviewed- no changes No changes in health, diet, medications, or supplements, Denies any signs and symptoms of bleeding or bruising or clotting. Bleeding, bruising, clotting discussed Nutritional guidance given- has had less greens Dose: 4mg x 3, 6mg x 4 F/U INR: 4 weeks Patient verbalizes understanding of instructions given pt states sched for deep cleaning h[facility]/dental tommorrow, inr to be in the lower end of his range, pt will call hhc/dental to cancel pt does not want to do dose adj and retest tomm, would prefer to eat more greens prior to proc pt will call acs with deep clean date and will resched acs appt if nec Anti-Coag Initial Assessment Social Hx Patient Tobacco Use Status: Never used Tobacco alcohol intake: current Alcohol intake frequency: a few times a week Cardiovascular Hx: Other Lung Disease HX: Other GI Hx: Other Cancer HX: No Psych. 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
[2024-01-25 09:17] LABS: ~PT, ~INR - Anti Coag Clinic 3.2 (0.9-1.1)
== END 2024-01-25 09:18 | disposition home or self-care (01) ==
LOC: HO.ACS 08:49
PROVIDERS: PCP Internal Medicine; Visit Provider Internal Medicine
DX: Z79.01 Long term (current) use of anticoagulants (principal)

== ENCOUNTER → 2024-01-25 08:49 | Outpatient (BNVA) | payer BC, SELFPAY | PROVIDERS: PCP Internal Medicine; Visit Provider Internal Medicine | DX: Z95.2 Presence of prosthetic heart valve (principal); Z51.81 Encounter for therapeutic drug level monitoring; Z79.01 Long term (current) use of anticoagulants | CPT/HCPCS: 85610; 99211 ==

== ENCOUNTER 2024-02-08 15:10 | Outpatient (AMB) | payer BC, SELFPAY ==
--- NOTE | 2024-02-08 15:26 | MHC.OFFVISCO ---
Intake Intake Visit Reasons: Anticoagulation Allergies No Known Allergies Allergy (Verified 02/08/24 15:11) Medication List - Last Reconciled 02/08/24 by Aislinn Lopez RN clotrimazole-betamethasone 1-0.05 % 1 appl topical BID 4 weeks metoprolol tartrate 50 mg PO BID warfarin 4 mg See Protocol PO DAILY Nursing Note PT.TO HAVE DEEP DENTAL CLEANING ON 02/15. DENTIST REQUESTS INR TO BE 2.8 OR LOWER. WILL DECREASE DOSE ON 02/13 AND WILL BE SURE TO HAVE DARK GREENS FOR 2-3 DAYS AND HAVE INR CHECK ON 02/14. PT.DENIES ANY CP,SOB OR SX OF BLEEDING. GOOD UNDERSTANDING OF DOSING INSTR. Anti-Coag Initial Assessment Social Hx Patient Tobacco Use Status: Never used Tobacco alcohol intake: current Alcohol intake frequency: a few times a week Cardiovascular Hx: Other Lung Disease HX: Other GI Hx: Other Cancer HX: No Psych. 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
[2024-02-09 09:19] LABS: Prothrombin Time Whole Bld POC 40.7 sec (11.1-13.5); ~PT, ~INR - Anti Coag Clinic 3.4 (0.9-1.1)
== END 2024-02-08 15:31 | disposition home or self-care (01) ==
LOC: HO.ACS 15:10
PROVIDERS: PCP Internal Medicine; Visit Provider Internal Medicine
DX: Z79.01 Long term (current) use of anticoagulants (principal)

== ENCOUNTER → 2024-02-08 15:10 | Outpatient (BNVA) | payer BC, SELFPAY | PROVIDERS: PCP Internal Medicine; Visit Provider Internal Medicine | DX: Z95.2 Presence of prosthetic heart valve (principal); Z51.81 Encounter for therapeutic drug level monitoring; Z79.01 Long term (current) use of anticoagulants | CPT/HCPCS: 85610; 99211 ==

== ENCOUNTER 2024-02-15 15:21 | Outpatient (AMB) | payer BC, SELFPAY ==
[2024-02-15 15:27] LABS: Prothrombin Time Whole Bld POC 29.5 sec (11.1-13.5); ~PT, ~INR - Anti Coag Clinic 2.5 (0.9-1.1)
--- NOTE | 2024-02-15 15:35 | MHC.OFFVISCO ---
Intake Intake Visit Reasons: Anticoagulation Allergies No Known Allergies Allergy (Verified 02/15/24 15:22) Medication List - Last Reconciled 02/15/24 by Aislinn Lopez RN clotrimazole-betamethasone 1-0.05 % 1 appl topical BID 4 weeks metoprolol tartrate 50 mg PO BID warfarin 4 mg See Protocol PO DAILY Nursing Note NO CP,SOB,DIET/MED CHANGES,FALLS OR SX OF BLEEDING. TO HAVE DEEP DENTAL CLEANING AT 9AM TOMORROW, AND INR TO BE <2.8. CONTINUE PRESENT DOSE AND FOLLOW-UP IN 4 WEEKS. GOOD UNDERSTANDING OF DOSING INSTR. INR RESULTS FAXED TO [facility]. Anti-Coag Initial Assessment Social Hx Patient Tobacco Use Status: Never used Tobacco alcohol intake: current Alcohol intake frequency: a few times a week Cardiovascular Hx: Other Lung Disease HX: Other GI Hx: Other Cancer HX: No Psych. 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
== END 2024-02-15 15:37 | disposition home or self-care (01) ==
LOC: HO.ACS 15:21
PROVIDERS: PCP Internal Medicine; Visit Provider Internal Medicine
DX: Z79.01 Long term (current) use of anticoagulants (principal)

== ENCOUNTER → 2024-02-15 15:21 | Outpatient (BNVA) | payer BC, SELFPAY | PROVIDERS: PCP Internal Medicine; Visit Provider Internal Medicine | DX: Z95.2 Presence of prosthetic heart valve (principal); Z51.81 Encounter for therapeutic drug level monitoring; Z79.01 Long term (current) use of anticoagulants | CPT/HCPCS: 85610; 99211 ==

== ENCOUNTER 2024-03-16 15:27 | Outpatient (AMB) | payer BC, SELFPAY ==
[2024-03-16 15:34] LABS: Prothrombin Time Whole Bld POC 38.6 sec (11.1-13.5); ~PT, ~INR - Anti Coag Clinic 3.2 (0.9-1.1)
--- NOTE | 2024-03-16 15:39 | MHC.OFFVISCO ---
Intake Intake Visit Reasons: Anticoagulation Allergies No Known Allergies Allergy (Verified 03/16/24 15:29) Medication List - Last Reconciled 03/16/24 by Maria Isabel Eugene RN clotrimazole-betamethasone 1-0.05 % 1 appl topical BID 4 weeks metoprolol tartrate 50 mg PO BID warfarin 4 mg See Protocol PO DAILY Nursing Note INR: 3.2 in therapeutic range of 2.5-3.5 Medications and supplements reviewed: no changes No changes in health, diet, medications, or supplements, Denies any signs and symptoms of bleeding or bruising or clotting. Bleeding, bruising, clotting discussed Nutritional guidance given Dose: 4mg X 3 days and 6mg X 4 days F/U INR: 1 month Patient verbalizes understanding of instructions given Anti-Coag Initial Assessment Social Hx Patient Tobacco Use Status: Never used Tobacco alcohol intake: current Alcohol intake frequency: a few times a week Cardiovascular Hx: Other Lung Disease HX: Other GI Hx: Other Cancer HX: No Psych. Illness/Depression: No Coding Level of Care Code Est Patient Level 1 Diagnoses Current use of anticoagulant therapy Z79.01 Assessment & Plan Assessment & Plan (1) Current use of anticoagulant therapy: Code(s): Z79.01 - [facility] (current) use of anticoagulants Category: Medical
== END 2024-03-16 15:41 | disposition home or self-care (01) ==
LOC: HO.ACS 15:27
PROVIDERS: PCP Internal Medicine; Visit Provider Internal Medicine
DX: Z79.01 Long term (current) use of anticoagulants (principal)

== ENCOUNTER → 2024-03-16 15:27 | Outpatient (BNVA) | payer BC, SELFPAY | PROVIDERS: PCP Internal Medicine; Visit Provider Internal Medicine | DX: Z95.2 Presence of prosthetic heart valve (principal); Z51.81 Encounter for therapeutic drug level monitoring; Z79.01 Long term (current) use of anticoagulants | CPT/HCPCS: 85610; 99211 ==

== ENCOUNTER 2024-04-12 15:14 | Outpatient (AMB) | payer BC, SELFPAY ==
[2024-04-12 15:22] LABS: Prothrombin Time Whole Bld POC 40.6 sec (11.1-13.5); ~PT, ~INR - Anti Coag Clinic 3.4 (0.9-1.1)
--- NOTE | 2024-04-12 15:27 | MHC.OFFVISCO ---
Intake Intake Visit Reasons: Anticoagulation Allergies No Known Allergies Allergy (Verified 04/12/24 15:15) Medication List - Last Reconciled 04/12/24 by Aislinn Lopez RN clotrimazole-betamethasone 1-0.05 % 1 appl topical BID 4 weeks metoprolol tartrate 50 mg PO BID warfarin 4 mg See Protocol PO DAILY Nursing Note NO CP,SOB,DIET/MED CHANGES,FALLS OR SX OF BLEEDING. CONTINUE PRESENT DOSE AND FOLLOW-UP IN 4 WEEKS. GOOD UNDERSTANDING OF DOSING INSTR. Anti-Coag Initial Assessment Social Hx Patient Tobacco Use Status: Never used Tobacco alcohol intake: current Alcohol intake frequency: a few times a week Cardiovascular Hx: Other Lung Disease HX: Other GI Hx: Other Cancer HX: No Psych. Illness/Depression: No Coding Level of Care Code Est Patient Level 1 Diagnoses Current use of anticoagulant therapy Z79.01 Assessment & Plan Assessment & Plan (1) Current use of anticoagulant therapy: Code(s): Z79.01 - long-term (current) use of anticoagulants Category: Medical
== END 2024-04-12 15:28 | disposition home or self-care (01) ==
LOC: HO.ACS 15:14
PROVIDERS: PCP Internal Medicine; Visit Provider Internal Medicine
DX: Z79.01 Long term (current) use of anticoagulants (principal)

== ENCOUNTER → 2024-04-12 15:14 | Outpatient (BNVA) | payer BC, SELFPAY | PROVIDERS: PCP Internal Medicine; Visit Provider Internal Medicine | DX: Z95.2 Presence of prosthetic heart valve (principal); Z51.81 Encounter for therapeutic drug level monitoring; Z79.01 Long term (current) use of anticoagulants | CPT/HCPCS: 85610; 99211 ==

== ENCOUNTER 2024-05-02 10:18 | Outpatient (REF) | payer BC, SELFPAY ==
--- NOTE | ~2024-05-02 | US_ITS ---
EXAMINATION: US VENOUS ULTRASOUND WITH DOPPLER LOWER EXTREMITY, RIGHT CLINICAL INFORMATION: Right lower extremity edema COMPARISON: None available. TECHNIQUE: Ultrasound of the deep veins is performed from the hip to the calf with compression sonography and color and pulse Doppler assessment. Spectral analysis with color-flow imaging is performed. FINDINGS: There is normal venous compression and respiratory variation and augmented flow. The visualized common femoral vein, superficial femoral vein, profunda femoral vein, popliteal vein, and the trifurcation region shows no evidence of deep venous thrombosis. There is no significant popliteal fossa cyst. 2 right groin lymph nodes are present measuring 2.0 x 2.5 x 1.2 cm and 1.9 x 0.5 x 1.0 cm. They have normal architecture and do not appear pathologic. If the patient's symptoms persist, followup ultrasound in 5 days 7 days might be of value to exclude proximal propagation from a non-visualized calf vein. US/US venous duplex LE RT IMPRESSION: No DVT demonstrated in the right lower extremity.
== END 2024-05-02 10:19 | disposition home or self-care (01) ==
LOC: HO.US 10:18
PROVIDERS: PCP Internal Medicine; Visit Provider Internal Medicine
DX: R60.0 Localized edema (principal)
CPT/HCPCS: 93971

== ENCOUNTER 2024-05-10 15:23 | Outpatient (AMB) | payer BC, SELFPAY ==
[2024-05-10 15:31] LABS: Prothrombin Time Whole Bld POC 43.4 sec (11.1-13.5); ~PT, ~INR - Anti Coag Clinic 3.6 (0.9-1.1)
--- NOTE | 2024-05-10 15:33 | MHC.OFFVISCO ---
Intake Intake Visit Reasons: Anticoagulation Allergies No Known Allergies Allergy (Verified 05/10/24 15:23) Medication List - Last Reconciled 05/10/24 by Aislinn Lopez RN clotrimazole-betamethasone 1-0.05 % 1 appl topical BID 4 weeks metoprolol tartrate 50 mg PO BID warfarin 4 mg See Protocol PO DAILY Nursing Note NO CP,SOB,DIET/MED CHANGES,FALLS OR SX OF BLEEDING. CONTINUE PRESENT DOSE AND FOLLOW-UP IN 4 WEEKS. GOOD UNDERSTANDING OF DOSING INSTR. Anti-Coag Initial Assessment Social Hx Patient Tobacco Use Status: Never used Tobacco alcohol intake: current Alcohol intake frequency: a few times a week Cardiovascular Hx: Other Lung Disease HX: Other GI Hx: Other Cancer HX: No Psych. 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
== END 2024-05-10 15:34 | disposition home or self-care (01) ==
LOC: HO.ACS 15:23
PROVIDERS: PCP Internal Medicine; Visit Provider Internal Medicine
DX: Z79.01 Long term (current) use of anticoagulants (principal)

== ENCOUNTER → 2024-05-10 15:23 | Outpatient (BNVA) | payer BC, SELFPAY | PROVIDERS: PCP Internal Medicine; Visit Provider Internal Medicine | DX: Z95.2 Presence of prosthetic heart valve (principal); Z51.81 Encounter for therapeutic drug level monitoring; Z79.01 Long term (current) use of anticoagulants | CPT/HCPCS: 85610; 99211 ==

== ENCOUNTER 2024-06-06 15:19 | Outpatient (AMB) | payer BC, SELFPAY ==
[2024-06-06 15:23] LABS: Prothrombin Time Whole Bld POC 47.7 sec (11.1-13.5)
--- NOTE | 2024-06-06 15:29 | MHC.OFFVISCO ---
Intake Intake Visit Reasons: Anticoagulation Allergies No Known Allergies Allergy (Verified 06/06/24 15:20) Nursing Note PT.STATES THAT HE HAS HAD SOME BEER THIS WEEK. NO CP,SOB,MED CHANGES,FALLS OR SX OF BLEEDING. [employer] TOMORROW(TOOK 4[employer] TODAY ALREADY)THEN RESUME USUAL DOSING AND FOLLOW-UP IN 4 WEEKS. GREENS TODAY GOOD UNDERSTANDING OF DOSING INSTR. Anti-Coag Initial Assessment Social Hx Patient Tobacco Use Status: Never used Tobacco alcohol intake: current Alcohol intake frequency: a few times a week Cardiovascular Hx: Other Lung Disease HX: Other GI Hx: Other Cancer HX: No Psych. 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
== END 2024-06-06 15:36 | disposition home or self-care (01) ==
LOC: HO.ACS 15:19
PROVIDERS: PCP Internal Medicine; Visit Provider Internal Medicine
DX: Z79.01 Long term (current) use of anticoagulants (principal)

== ENCOUNTER → 2024-06-06 15:19 | Outpatient (BNVA) | payer BC, SELFPAY | PROVIDERS: PCP Internal Medicine; Visit Provider Internal Medicine | DX: Z95.2 Presence of prosthetic heart valve (principal); Z51.81 Encounter for therapeutic drug level monitoring; Z79.01 Long term (current) use of anticoagulants | CPT/HCPCS: 85610; 99211 ==

== ENCOUNTER 2024-07-04 09:39 | Outpatient (AMB) | payer BC, SELFPAY ==
[2024-07-04 09:53] LABS: Prothrombin Time Whole Bld POC 32.7 sec (11.1-13.5); ~PT, ~INR - Anti Coag Clinic 2.7 (0.9-1.1)
--- NOTE | 2024-07-04 09:55 | MHC.OFFVISCO ---
Intake Intake Visit Reasons: Anticoagulation Allergies No Known Allergies Allergy (Verified 07/04/24 09:49) Medication List - Last Reconciled 07/04/24 by Maria Isabel Eugene RN clotrimazole-betamethasone 1-0.05 % 1 appl topical BID 4 weeks metoprolol tartrate 50 mg PO BID warfarin 4 mg See Protocol PO DAILY Nursing Note INR: 2.7 in therapeutic range of 2.5-3.5 Medications and supplements reviewed No changes in health, diet, medications, or supplements, Denies any signs and symptoms of bleeding or bruising or clotting. Bleeding, bruising, clotting discussed Nutritional guidance given to avoid greens today and to have a serving of food from the list that raises the INR Dose: 6mg X 4 days and 4mg X 3 days F/U INR: 1 month Patient verbalizes understanding of instructions given Anti-Coag Initial Assessment Social Hx Patient Tobacco Use Status: Never used Tobacco alcohol intake: current Alcohol intake frequency: a few times a week Cardiovascular Hx: Other Lung Disease HX: Other GI Hx: Other Cancer HX: No Psych. 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
== END 2024-07-04 10:06 | disposition home or self-care (01) ==
LOC: HO.ACS 09:39
PROVIDERS: PCP Internal Medicine; Visit Provider Internal Medicine
DX: Z79.01 Long term (current) use of anticoagulants (principal)

== ENCOUNTER → 2024-07-04 09:39 | Outpatient (BNVA) | payer BC, SELFPAY | PROVIDERS: PCP Internal Medicine; Visit Provider Internal Medicine | DX: Z95.2 Presence of prosthetic heart valve (principal); Z51.81 Encounter for therapeutic drug level monitoring; Z79.01 Long term (current) use of anticoagulants | CPT/HCPCS: 85610; 99211 ==

== ENCOUNTER 2024-08-02 08:47 | Outpatient (AMB) | payer BC, SELFPAY ==
[2024-08-02 08:56] LABS: Prothrombin Time Whole Bld POC 35.6 sec (11.1-13.5)
--- NOTE | 2024-08-02 09:02 | MHC.OFFVISCO ---
Intake Intake Visit Reasons: Anticoagulation Allergies No Known Allergies Allergy (Verified 08/02/24 08:50) Medication List - Last Reconciled 08/02/24 by Isabel Ricks RN clotrimazole-betamethasone 1-0.05 % 1 appl topical BID 4 weeks metoprolol tartrate 50 mg PO BID warfarin 4 mg See Protocol PO DAILY Nursing Note INR: 3.0 in therapeutic range Medications and supplements reviewed No changes in health, diet, medications, or supplements, Denies any signs and symptoms of bleeding or bruising or clotting. Bleeding, bruising, clotting discussed Nutritional guidance given Dose: 4MG X 3 DAYS/ 6MG X 4 DAYS F/U INR: 1 MONTH Patient verbalizes understanding of instructions given Anti-Coag Initial Assessment Social Hx Patient Tobacco Use Status: Never used Tobacco alcohol intake: current Alcohol intake frequency: a few times a week Cardiovascular Hx: Other Lung Disease HX: Other GI Hx: Other Cancer HX: No Psych. 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
== END 2024-08-02 09:03 | disposition home or self-care (01) ==
LOC: HO.ACS 08:47
PROVIDERS: PCP Internal Medicine; Visit Provider Internal Medicine
DX: Z79.01 Long term (current) use of anticoagulants (principal)

== ENCOUNTER → 2024-08-02 08:47 | Outpatient (BNVA) | payer BC, SELFPAY | PROVIDERS: PCP Internal Medicine; Visit Provider Internal Medicine | DX: Z95.2 Presence of prosthetic heart valve (principal); Z79.01 Long term (current) use of anticoagulants; Z51.81 Encounter for therapeutic drug level monitoring | CPT/HCPCS: 85610; 99211 ==

== ENCOUNTER 2024-08-30 08:46 | Outpatient (AMB) | payer BC, SELFPAY ==
[2024-08-30 09:07] LABS: Prothrombin Time Whole Bld POC 34.5 sec (11.1-13.5); ~PT, ~INR - Anti Coag Clinic 2.9 (0.9-1.1)
--- NOTE | 2024-08-30 09:11 | MHC.OFFVISCO ---
Intake Intake Visit Reasons: Anticoagulation Allergies No Known Allergies Allergy (Verified 08/30/24 09:02) Medication List - Last Reconciled 08/30/24 by Isabel Ricks RN clotrimazole-betamethasone 1-0.05 % 1 appl topical BID 4 weeks metoprolol tartrate 50 mg PO BID warfarin 4 mg See Protocol PO DAILY Nursing Note INR: 2.9 in therapeutic range Medications and supplements reviewed No changes in health, diet, medications, or supplements, Denies any signs and symptoms of bleeding or bruising or clotting. Bleeding, bruising, clotting discussed Nutritional guidance given Dose: KEEP SAME F/U INR: 1 MONTH Patient verbalizes understanding of instructions given Anti-Coag Initial Assessment Social Hx Patient Tobacco Use Status: Never used Tobacco alcohol intake: current Alcohol intake frequency: a few times a week Cardiovascular Hx: Other Lung Disease HX: Other GI Hx: Other Cancer HX: No Psych. Illness/Depression: No Coding Level of Care Code Est Patient Level 1 Diagnoses Current use of anticoagulant therapy Z79.01 Assessment & Plan Assessment & Plan (1) Current use of anticoagulant therapy: Code(s): Z79.01 - penitentiary (current) use of anticoagulants Category: Medical
== END 2024-08-30 09:12 | disposition home or self-care (01) ==
LOC: HO.ACS 08:46
PROVIDERS: PCP Internal Medicine; Visit Provider Internal Medicine
DX: Z79.01 Long term (current) use of anticoagulants (principal)

== ENCOUNTER → 2024-08-30 08:46 | Outpatient (BNVA) | payer BC, SELFPAY | PROVIDERS: PCP Internal Medicine; Visit Provider Internal Medicine | DX: Z95.2 Presence of prosthetic heart valve (principal); Z79.01 Long term (current) use of anticoagulants; Z51.81 Encounter for therapeutic drug level monitoring | CPT/HCPCS: 85610; 99211 ==

== ENCOUNTER 2024-09-27 09:20 | Outpatient (AMB) | payer BC, SELFPAY ==
[2024-09-27 09:45] LABS: Prothrombin Time Whole Bld POC 32.5 sec (11.1-13.5); ~PT, ~INR - Anti Coag Clinic 2.7 (0.9-1.1)
--- NOTE | 2024-09-27 09:47 | MHC.OFFVISCO ---
Intake Intake Visit Reasons: Anticoagulation Allergies No Known Allergies Allergy (Verified 09/27/24 09:39) Medication List - Last Reconciled 09/27/24 by Isabel Ricks RN amoxicillin 1,000 mg PO BID chlorhexidine gluconate 0.12% PO clotrimazole-betamethasone 1-0.05 % 1 appl topical BID 4 weeks metoprolol tartrate 50 mg PO BID warfarin 4 mg See Protocol PO DAILY Nursing Note INR: 2.7 in therapeutic range Medications and supplements reviewed No changes in health, diet, medications, or supplements, Denies any signs and symptoms of bleeding or bruising or clotting. Bleeding, bruising, clotting discussed Nutritional guidance given Dose: 4MG X 3 DYAS/ 6MG X 4 DAYS F/U INR: 1 MONTH Patient verbalizes understanding of instructions given Anti-Coag Initial Assessment Social Hx Patient Tobacco Use Status: Never used Tobacco alcohol intake: current Alcohol intake frequency: a few times a week Cardiovascular Hx: Other Lung Disease HX: Other GI Hx: Other Cancer HX: No Psych. Illness/Depression: No Questionnaires HAS-BLED Does the patient had uncontrolled Hypertension?: No Does the patient have renal disease?: No Does the patient have liver disease?: No Does the patient have a history of stroke?: No Has the patient had major bleeding or predisposition to bleeding?: No Does the patient have labile INRs?: No Is the patient over 65 years of age?: No Is the patient on medications that gives them a predisposition to bleeding?: Yes Does the patient use alcohol?: Yes HAS-BLED Score: 2 CHADSVASC Age: <65 Gender: Male Does the patient have a history of CHF?: No Does the patient have a history of Hypertension?: No Does the patient have a history of Stroke/TIA/Thromboembolism?: No Does the patient have a history of Vascular Disease (prior MD, PAD or aortic plaque)?: Yes Does the patient have a history of Diabetes?: No CHADS VACS Score: 1 [place] Prediction Score Rsk VTE Active Cancer: No Previous VTE, excluding superficial vein thrombosis: No Reduced mobility: No Already known Thrombophilic Condition: Yes With-in last month Trauma and/or Surgery: No Elderly 70 year or older: No Heart and/or Respiratory Failure: No Acute Myocardial infarction and/or Ischemic Stroke: No Acute Infection and/or Rheumatologic Disorder: No Obesity (BMI 30 or greater): No Ongoing Hormonal Treatment: No Score: 3 [place] Score less than 4; Low Risk of VTE [place] Score 4 or greater; High Risk of VTE Coding Level of Care Code Est Patient Level 1 Diagnoses Current use of anticoagulant therapy Z79.01 Assessment & Plan Assessment & Plan (1) Current use of anticoagulant therapy: Code(s): Z79.01 - jail (current) use of anticoagulants Category: Medical
== END 2024-09-27 09:54 | disposition home or self-care (01) ==
LOC: HO.ACS 09:20
PROVIDERS: PCP Internal Medicine; Visit Provider Internal Medicine
DX: Z79.01 Long term (current) use of anticoagulants (principal)

== ENCOUNTER → 2024-09-27 09:20 | Outpatient (BNVA) | payer BC, SELFPAY | PROVIDERS: PCP Internal Medicine; Visit Provider Internal Medicine | DX: Z95.2 Presence of prosthetic heart valve (principal); Z79.01 Long term (current) use of anticoagulants; Z51.81 Encounter for therapeutic drug level monitoring | CPT/HCPCS: 85610; 99211 ==

== ENCOUNTER 2024-10-25 08:57 | Outpatient (AMB) | payer BC, SELFPAY ==
[2024-10-25 09:20] LABS: Prothrombin Time Whole Bld POC 26.8 sec (11.1-13.5); ~PT, ~INR - Anti Coag Clinic 2.2 (0.9-1.1)
--- NOTE | 2024-10-25 09:24 | MHC.OFFVISCO ---
Intake Intake Visit Reasons: Anticoagulation Allergies No Known Allergies Allergy (Verified 10/25/24 09:17) Medication List - Last Reconciled 10/25/24 by Maria Isabel Eugene RN chlorhexidine gluconate 0.12% PO clotrimazole-betamethasone 1-0.05 % 1 appl topical BID 4 weeks metoprolol tartrate 50 mg PO BID warfarin 4 mg See Protocol PO DAILY Nursing Note INR 2.2?out of therapeutic range of 2.5-3.5 Patient status: well Pt states he is low due to the Holiday. He cut his dose to 2mg one day only and had some beer then he had spinach Medications and supplements reviewed and no changes Diet: usual diet other than above mentioned Denies any signs and symptoms of bleeding or clotting or unusual bruising Bleeding, bruising, clotting discussed Nutritional guidance given: to avoid greens today and have a serving of foods from the list that raises the INR Dose: 6mg X 4 days and 4mg X 3 days F/U INR Date : 4 weeks?? Patient verbalizing understanding of instructions given. Anti-Coag Initial Assessment Social Hx Patient Tobacco Use Status: Never used Tobacco alcohol intake: current Alcohol intake frequency: a few times a week Cardiovascular Hx: Other Lung Disease HX: Other GI Hx: Other Cancer HX: No Psych. 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
== END 2024-10-25 09:28 | disposition home or self-care (01) ==
LOC: HO.ACS 08:57
PROVIDERS: PCP Internal Medicine; Visit Provider Internal Medicine
DX: Z79.01 Long term (current) use of anticoagulants (principal)

== ENCOUNTER → 2024-10-25 08:57 | Outpatient (BNVA) | payer BC, SELFPAY | PROVIDERS: PCP Internal Medicine; Visit Provider Internal Medicine | DX: Z95.2 Presence of prosthetic heart valve (principal); Z79.01 Long term (current) use of anticoagulants; Z51.81 Encounter for therapeutic drug level monitoring | CPT/HCPCS: 85610; 99211 ==

== ENCOUNTER → 2024-11-22 08:59 | Outpatient (BNVA) | payer BC, SELFPAY | PROVIDERS: PCP Internal Medicine; Visit Provider Internal Medicine | DX: Z95.2 Presence of prosthetic heart valve (principal); Z79.01 Long term (current) use of anticoagulants; Z51.81 Encounter for therapeutic drug level monitoring | CPT/HCPCS: 85610; 99211 ==

== ENCOUNTER 2025-01-11 15:23 | Outpatient (AMB) | payer BC, SELFPAY ==
--- OUTSIDE RECORDS SUMMARY | 2025-01-11 15:26 | XMS_ITS | Encounter Summary ---
Author Organization [employer] Address [address] [place] [address] Care Team Providers Care County Manager Name Role Phone Malina Mckinney MD Primary Care Provider + Encounter Details Date Type Department Care Team (Late st Contact Info) Description 12/19/2023 Abstract [facility] [address], [place] [id number] Thiago, Dalia [address] [place] [address] Social History Tobacco Use Types Packs/Day Years Used Date Smoking Tobacco: Never Smokeless Tobacco: Never Alcohol Use Standard Drinks/Week Comments Not Currently 0 (1 standard drink = 0.6 oz pur e alcohol) oca Housing Stability Answer Date Recorded What is your housing situation today? I have yael overton 09/06/[address] you li ve. Do you have problems with any of the following? None of the above 09/06/2023 Food Insecurity Answer Date Recorded Within the past 12 months, y ou worried that your food would run out before you got money to buy more: Never True 09/06/2023 Within the past 12 months,th e food you bought just didn't last and you didn't have enough money to get more: Never True Transportation Answer Date Recorded In the past 12 months, has l ack of transportation kept you from medical appts, meetings, work or from getting things needed for daily living? No 09/06/2023 Utilities Answer Date Recorded In the past 12 months, has t he electric, gas, oil or water company threatened to shut off services in your home? No 09/06/2023 Sex and Gender Information Value Date Recorded Sex Assigned at Male 09/20/2022 10:33 AM EDT Legal Sex Male 10:33 AM EDT Gender Identity Male 09/20/2022 10:33 AM EDT Sexual Orientation Choose not to disclose 2021 10:33 AM EDT documented as of this encounter Plan of Treatment Not on file documented as of this encounter Visit Diagnoses Not on filedocumented in this encounter Care Teams County Manager Relationship Specialty Start Date End Date Malina Mckinney MD [address] [place] [id number] PCP - General Family Medicine 05/05/18 documented as of this encounter
--- OUTSIDE RECORDS SUMMARY | 2025-01-11 15:26 | XMS_ITS | Encounter Summary ---
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 Name Role Phone Malina Mckinney MD Primary Care Provider + Reason for Visit * Reason Onset Date Comments February12/21/2024 Encounter Details Date Type Department Care Team ([facility] st Contact Info) Description 12/21/2024 Telephone [facility] MEDICINE [address] [place], [place] [phone] Malina Mckinney MD [address] [place] [address] February recall Social History Tobacco Use Types Packs/Day Years Used Date Smoking Tobacco: Never Smokeless Tobacco: Never Alcohol Use Standard Drinks/Week Comments Not Currently 0 (1 standard drink = 0.6 oz pur e alcohol) oca Housing Stability Answer Date Recorded What is your housing situation today? I have yael over[place] 08/30/[address] you li ve. Do you have problems with any of the following? None of the above 08/30/2024 Food Insecurity Answer Date Recorded Within the past 12 months, y ou worried that your food would run out before you got money to buy more: Never True 08/30/2024 Within the past 12 months,th e food you bought just didn't last and you didn't have enough money to get more: Never True 08/2024 Transportation Answer Date Recorded In the past 12 months, has l ack of transportation kept you from medical appts, meetings, work or from getting things needed for daily living? No 08/30/2024 Utilities Answer Date Recorded In the past 12 months, has t he electric, gas, oil or water [employer] threatened to shut off services in your home? No 08/30/2024 Depression Answer Date Recorded Patient Health Questionnaire-2 Score 0 05/29/2024 Internet Access Answer Date Recorded Internet Access Q1 No 08/30/2024 Internet Access Q2 I do not want or need it 08/21 Sex and Gender Information Value Date Recorded Sex Assigned at Male 09/20/2022 10:33 AM EDT Legal Sex Male 10:33 AM EDT Gender Identity Male 09/20/2022 10:33 AM EDT Sexual Orientation Choose not to disclose 2021 10:33 AM EDT documented as of this encounter Miscellaneous Notes * Telephone Encounter - Yolanda Garcia MA - 12/21/2024 9:45 AM EST TC to pt to schedule fu lipids appt with pcp. Pt did not answer, left a voice message. documented in this encounter Plan of Treatment Not on file documented as of this encounter Visit Diagnoses Not on filedocumented in this encounter Care Teams Under Ground [employer]er Relationship Specialty Start Date End Date Malina Mckinney MD [address] [place] [id number] PCP - General Family Medicine 05/05/18 documented as of this encounter
--- OUTSIDE RECORDS SUMMARY | 2025-01-11 15:26 | XMS_ITS | Continuity of Care Document ---
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 Name Role Phone Hank MAZARIEGOS, Malina Rubio Primary Care Physician Encounter [facility] Date(s): 01/07/25 - 01/10/[address] [id number] Discharge Disposition: A-D/C Home Attending Physician: Jeannie Vaughn MD Admitting Physician: Christina Chauhan MD Referring Physician: Not on Staff, Referring MD Encounter Type: Disch Obv Allergies, Adverse Reactions, Alerts No Known Allergies Immunizations Given and Recorded Vaccine Date Status Refusal Reason SARS-CoV-2 (COVID-19) mRNA BNT-162b2 vac 03/03/21 Given SARS-CoV-2 (COVID-19) mRNA BNT-162b2 vac 02/10/21 Given Medications acetaminophen 325 mg oral tablet 975 mg, 3, tablet, By Mouth, 3 times a day, for 10 days, # 90 tablet, Refills 0, Tot. Refills 0, Acute 01/20/25 2:13:00 PM EST, 01/10/25 2:13:00 PM EST, Route to Pharmacy Electronically, [facility], Partial fill upon patient request if the prescription is for a schedule II opioid drug., 180, cm, 01/10/25 11:58:00 EST, Height, 90, kg, 01/08/25 14:33:00 EST, Dry Weight Start Date: 01/10/25 Stop Date: 01/20/25 Status: Ordered Quantity: 90.0 Unit: tablet Repeat number: 1 amoxicillin-clavulanate 875 mg-125 mg oral tablet = 875 mg, By Mouth, 2 times a day, for 5 days, # 10 tablet, 0 Refills, Acute 01/15/25 2:12:00 PM EST, 01/10/25 2:12:00 PM EST, Tablet, [facility], Partial fill upon patient request if the prescription is for a schedule II opioid drug., 180, cm, 01/10/25 11:58:00 EST, Height, 90, kg, 01/08/25 14:33:00 EST, Dry Weight Start Date: 01/10/25 Stop Date: 01/15/25 Status: Ordered Quantity: 10.0 Unit: tablet Repeat number: 1 colchicine 0.6 mg oral tablet 0.6 mg, By Mouth, 2 times a day, # 30 tablet, Refills 0, Tot. Refills 0, Maintenance, 01/10/25 2:12:00 PM EST, Route to Pharmacy Electronically, [facility], Partial fill upon patient request if the prescription is for a schedule II opioid drug., 180, cm, 01/10/25 11:58:00 EST, Height, 90, kg, 01/08/25 14:33:00 EST, Dry Weight Start Date: 01/10/25 Stop Date: 02/09/25 Status: Ordered Quantity: 30.0 Unit: tablet Repeat number: 1 metoprolol 50 mg oral tablet 50 mg, Tablet, By Mouth, Hold for: SBP<100 or HR<60, 01/10/25 9:00:00 AM EST Start Date: 01/10/25 Stop Date: 01/10/25 Status: Completed Repeat number: 1 metoprolol 50 mg oral tablet 50 mg, 1, tablet, By Mouth, 2 times a day, # 60 tablet, Refills 0, Tot. Refills 0, Maintenance, 06/16/21 8:04:00 AM EDT, Route to Pharmacy Electronically, [facility], Partial fill upon patient request if the prescription is for a schedule II opioid drug., 180.3, cm, 06/03/21 14:28:00 EDT, Height, 93.18, kg, 06/02/21 12:03:00 EDT, Dry Weight Start Date: 06/16/21 Status: Ordered Quantity: 60.0 Unit: tablet Repeat number: 1 oxyCODONE 5 mg oral tablet 5 mg, Tablet, By Mouth, Every 4 hours, PRN for Pain , Moderate, Routine, 01/08/25 2:40:00 PM EST Start Date: 01/08/25 Stop Date: 01/11/25 Status: Discontinued Repeat number: 1 oxyCODONE 5 mg oral tablet 5 mg, By Mouth, Every 4 hours, PRN, for 3 days, # 18 tablet, Refills 0, Tot. Refills 0, Acute 01/13/25 2:12:00 PM EST, Pain , Moderate, 01/10/25 2:12:00 PM EST, Route to Pharmacy Electronically, [facility], Partial fill upon patient request if the prescription is for a schedule IIopioid drug., 180, cm, 01/10/25 11:58:00 EST, Height, 90, kg, 01/08/25 14:33:00 EST, Dry Weight Start Date: 01/10/25 Stop Date: 01/13/25 Status: Ordered Quantity: 18.0 Unit: tablet Repeat number: 1 predniSONE 20 mg oral tablet = 40 mg, By Mouth, Daily, for 4 days, # 8 tablet, 0 Refills, Acute 01/14/25 2:13:00 PM EST, 01/10/25 2:13:00 PM EST, Tablet, [facility], Partial fill upon patient request if the prescription is for a schedule II opioid drug., 180, cm, 01/10/25 11:58:00 EST, Height, 90, kg, 01/08/25 14:33:00 EST, Dry Weight Start Date: 01/10/25 Stop Date: 01/14/25 Status: Ordered Quantity: 8.0 Unit: tablet Repeat number: 1 warfarin 4 mg oral tablet By Mouth, Daily, DIRECTED BY PHYSICIAN. Start Date: 01/08/25 Status: Ordered Repeat number: 1 Results Radiology Reports * Exam Date Time Procedure Performing Provider Status 01/07/25 9:48 PM Foot Min 3 Views Right Mayte Thibodeaux ; Auth (Verified) Notes: (Foot Min 3 Views Right) Reason For Exam: Pain RESULT: Foot Min 3 Views Right Foot Min 3 Views Right, 3 views INDICATION R foot pain to the top of his foot with redness swelling began earlier this AM, tyl brought relief but around 9am pt was unable to bear weight; Reason: Pain; Clinical Question(s): Osteomyelitis COMPARISON: None. FINDINGS: No fractures or bone lesions. No arthritic changes. Mild soft tissue swelling/edema overlying the dorsum of the proximal foot. IMPRESSION: Mild soft tissue swelling/edema overlying the dorsum of the proximal foot. Findings may represent infectious/inflammatory process such as cellulitis. No evidence of underlying fracture or osseous abnormality. I have personally reviewed the images and I agree with this report. WSN: [id number] Ordering Physician: Alec Peoples Dictated By: Alejandro Jáurez MD Dictated Date/Time: 01/07/25 10:12 p Reviewed By: Varghese Lara MD Signed By: Varghese Lara MD Signed Date/Time: 01/07/25 10:17 pm Transcribed By: MARIAELENA Transcribed Date/Time: 01/07/25 10:07 pm * Exam Date Time Procedure Performing Provider Status 01/07/25 9:48 PM Chest 2 Views Frontal and Lat Mayte Thibodeaux; Auth (Verified) Notes: (Chest 2 Views Frontal and Lat) Reason For Exam: Chest Pain;Other: RESULT: Chest 2 Views Frontal and Lat Chest 2 Views Frontal and Lat Hx of Present Illness: Pt reports R foot pain to the top of his foot with redness swelling began earlier this AM, tyl brought relief but around 9am pt was unable to bear weight - reports atraumatic, went to [facility] and xray is benign, +thinners; Reason: Other:; Chest Pain; Clinical Question(s): Other: COMPARISON: 01/29/2022 FINDINGS: LINES AND TUBES: None. LUNGS AND PLEURA: Clear lungs. Normal pulmonary vascularity. No pleural effusion. No pneumothorax. HEART, MEDIASTINUM AND KALYN: Heart is normal in size. Normal mediastinal and hilar contour. BONES AND SOFT TISSUES: No acute abnormality. IMPRESSION: No acute abnormality. WSN: [id number] Ordering Physician: Alec Peoples Dictated By: Loc Rene MD Dictated Date/Time: 01/07/25 9:50 pm Reviewed By: Loc Rene MD Signed By: Loc Rene MD Signed Date/Time: 01/07/25 9:50 pm Transcribed By: MARIAELENA Transcribed Date/Time: 01/07/25 9:49 pm Vital Signs Most recent to oldest [Reference Range]: 1 2 3 Height 180 cm (01/10/25 3:30 PM) 180 cm (01/10/25 10:30 AM) 180 cm (01/10/25 7:44 AM) Weight 90 kg (01/08/25 12:10 PM) 91 kg (01/08/25 11:28 AM) 91 kg (01/07/25 8:41 PM) Oxygen Saturation [94-100 %] 99 % (01/10/25 3:30 PM) 100 % (01/10/25 10:30 AM) 96 % (01/10/25 7:44 AM) Pulse Rate [55-90 bpm] 71 bpm (01/10/25 3:30 PM) 55 bpm (01/10/25 10:30 AM) 66 bpm (01/10/25 8:01 AM) Body Mass Index [18.5-24.99 kg/m2] 27.78 kg/m2 *H* (01/08/25 12:10 PM) 28.09 kg/m2 *H* (01/08/25 11:28 AM) 28.09 kg/m2 *H* (01/07/25 7:01 PM) Blood Pressure [90-138/55-84 mm Hg] 134/74mm Hg (01/10/25 3:30 PM) 143/76mm Hg *H* (01/10/25 10:30 AM) 126/77mm Hg (01/10/25 8:01 AM) Respiratory Rate [16-30 br/min] 18 br/min (01/10/25 3:30 PM) 20 br/min (01/10/25 10:54 AM) 18 br/min (01/10/25 10:30 AM) Temperature [96.8-100.4 DegF] 97.9 DegF (01/10/25 3:30 PM) 97.7 DegF (01/10/25 10:30 AM) 97.3 DegF (01/10/25 7:44 AM) Mode of Delivery (Oxygen) Room air (01/10/25 3:30 PM) Room air (01/10/25 10:30 AM) Room air (01/10/25 7:44 AM) Blood pressure sites Arm, right (01/10/25 3:30 PM) Arm, left (01/10/25 10:30 AM) Arm, left (01/10/25 7:44 AM) Temperature Route Oral (01/10/25 3:30 PM) Oral (01/10/25 10:30 AM) Oral (01/10/25 7:44 AM) Dry Weight 90 kg (01/08/25 12:10 PM) 91 kg (01/08/25 11:28 AM) 91 kg (01/07/25 8:41 PM) Weight Obtained Via Patient/family state d (01/08/25 12:10 PM) Patient/family stated (01/07/25 7:01 PM) Dry Weight Obtained Via Patient/family s tated (01/07/25 7:01 PM) Admission evaluation note * Gissel MAZARIEGOS, Christina Corea: PERFORM Event Display: Admission Note Authored Date: [id number] Patient: ??LUCIO DUNLAP ? Age:??44 Years?Sex:??Male?:??1980?? Chief Complaint/Reason for Consultation Atraumatic polyarthropathy History of Present Illness This is a 44-year-old gentleman with a past medical history of aortic valve replacement on Coumadin, hypertension on metoprolol who is presenting with atraumatic right foot pain and right hand pain started approximately 2 days ago.?? Claims pain is 10/10 and he is unable to bear any weight on his right leg.?? He is unable to wear his shoes as top of his right foot has been swollen.?? He notes increased warmth of his right ankle and decreased range of motion.?? No fevers chills or any other systemic symptoms.?? Denies any history of gout.?? States he has been taking ibuprofen that has been helping. Eats red meat approximately 2 times a week.?? Was recently in the [place] on vacation where he drank more than he usually does but does not have a history of daily alcohol use.?? Patient's brother has a history of alkalizing spondylitis. As a part of workup, chest x-ray was done that was nonacute, x-ray of right foot showed Mild soft tissue swelling/edema overlying the dorsum of the proximal foot. Findings may represent infectious/inflammatory process such as cellulitis.. He has been afebrile in the ER, BP stable, 128/83, saturating 98% on room air Labs???no leukocytosis, hemoglobin/hematocrit 14/41, platelet count 190, INR therapeutic???2.6.?? Sodium 135, potassium 4.1, chloride/bicarb 101/21, BUN/creatinine 16/0.85.?? ESR/CRP elevated, 37 and7.9 respectively He was seen by orthopedics, who did aspirate his right wrist and right ankle.?? Unfortunately not enough fluid to be able to run anything other than culture.?? However, per ED note, the joint fluid aspirated from right ankle does appear to have some small crystals.?? Unable to get any testing besides fluid culture given inadequate sample. Given concern for questionable gout, he received 1 dose of 40 mg of oral prednisone along with Tylenol. ?? Admitted for polyarthritis.?? Diagnoses under evaluation Review of Systems GEN: ??Denies any issues with sleep, fatigue or changes in wt. HEENT: Denies runny nose, dry mouth, ??sore throat or changes to his vision. CV: Denies CP, palpitations, edema or orthopnea. PULM: Denies any SOB, wheezing, cough. ABD: Denies any abdominal pain, N/V/D, heartburn. ??Denies any changes to bowel habits or stool character.?? : Denies dysuria, polyuria, or hematuria. EXT:??Positive for joint pain as per HPI PSYCH: Denies any depression or anxiety. Objective Vital Signs?? Temperature: 98.1 DegF (01/08/25 12:10:00) Temperature Route: Oral (01/08/25 12:10:00) Pulse Rate: 62 bpm (01/08/25 12:10:00) Respiratory Rate: 18 br/min (01/08/25 12:10:00) Systolic Blood Pressure: 128 mm Hg (01/08/25 12:10:00) Diastolic Blood Pressure: 83 mm Hg (01/08/25 12:10:00) Blood pressure sites: Arm, right (01/08/25 12:10:00) Mean Arterial Pressure: 98 mm Hg (01/08/25 12:10:00) Pulse Pressure: 45 mm Hg (01/08/25 12:10:00) Oxygen Saturation: 98 % (01/08/25 11:28:00) Mode of Delivery (Oxygen): Room air (01/08/25 11:28:00) Early Warning Score: 1 (01/08/25 12:10:48) ? Intake/Output? No Data Available ? Physical Exam ?? General Appearance: The patient is a alert and awake, no acute distress, comfortable Eyes: EOMI. LEATHA. No scleral icterus. ENT: ??MM moist. Dentition intact. No erythema or exudates on throat. ?? Cardiovascular: RRR S1 and S2 heard with clicking of artificial valve heard Respiratory: ??Breath sounds clear to auscultation bilaterally. No wheezing. Good air movement throughout both lungs. GI: Soft. Nontender and nondistended. Normal bowel sounds present throughout abdomen. ??No rebound tenderness or other findings suggestive of an acute abdomen.?? MS: There is warmth, some redness and tenderness to palpation of right ankle joint, with limited range of motion.?? Similarly, there is warmth, tenderness to palpation and decreased range of motion of right wrist. Skin:??No rashes seen on chest, abdomen, or back. ? Neuro: ??No slurred speech. 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 ??Lower extremity strength equal bilaterally with 5/5 strength. ??Reflexes 2+ throughout. ?? Psych: Alert and oriented x3. Lines: Peripheral IV in place.?? 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 Assessment:??This is a 44-year-old gentleman with a past medical history of aortic valve replacement on Coumadin, hypertension on metoprolol who is presenting with atraumatic right foot pain and right hand pain started approximately 2 days ago.??Claims pain is 10/10 and he is unable to bear any weight on his right leg. Admitted for polyarthritis.??Diagnoses under evaluation ?? 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 States brother has a history of rheumatoid arthritis/ankylosing spondylitis.??He has elevated inflammatory markers, will check RA/CCP. X-ray is nonacute but reports possible soft tissue involvement???cellulitis.??He is afebrile, no leukocytosis, however will empirically cover with Augmentin ?? If all of the above workup is negative, he will benefit from outpatient rheumatology eval ?? Hypertension (I10):??c/w metoprolol ?? Aortic valve replaced (Z95.2):??on coumadin??continue INR QD. currently therapeutic ?? VTE Prophylaxis:??On warfarin ?VTE Prophylaxis Assessment:??VTE Prophylaxis Ordered ?? Ongoing Medical Necessity:??pending sinovial fluid cx ?? Code Status:??Full code ?Order Code Status:??Code Status Ordered ? Histories Allergies Allergies ?(Active and Proposed Allergies Only) NKA? (Severity: Unknown severity, Onset: Unknown) ? Past Medical History/Problem List as per HPI ? Past Surgical History AVR ? Social History Denies active smoking, only drinks alcohol socially. ??No IVDU, no recreational drug use ? Family History Brother???ankylosing spondylitis/RA ? Medications Home Medications amiODARONE (amiodarone 200 mg oral tablet)??See Instructions 2 tablet By Mouth 2 times a day thru 07/07 then 1 tablet by mouth 2 times a day ??x 28 days Aspirin (aspirin 81 mg oral delayed release tablet)??81 Milligram By Mouth Daily Colchicine (colchicine 0.6 mg oral tablet)??0.6 Milligram 1 tablet By Mouth 2 times a day for 28 Days Diltiazem (DilTIAZem (Eqv-Cardizem CD) 120 mg/24 hours oral capsule, extended release)??1 capsule 120 Milligram By Mouth Daily Furosemide (Lasix 40 mg oral tablet)??40 Milligram 1 tablet By Mouth Daily Metoprolol (metoprolol 50 mg oral tablet)??50 Milligram 1 tablet By Mouth 2 times a day Warfarin (warfarin 3 mg oral tablet)??See Instructions 1 tablet By Mouth Once tonight then as directed based on daily inr level Warfarin (warfarin 4 mg oral tablet)??TAKE 2 TO 3 TABLETS BY MOUTH ONCE DAILY OR DIRECTED BY PHYSICIAN. ? Results Recent Labs BLOOD COUNT & DIFF WBC 9.4 k/mm3 ()?? 01/08/2025 00:15 RBC 4.74 m/mm3 ()?? 01/08/2025 00:15 Hgb 14.0 Gm/dL ()?? 01/08/2025 00:15 Hct 41.0 % ()?? 01/08/2025 00:15 MCV 86.5 femtoliters ()?? 01/08/2025 00:15 MCH 29.5 pg ()?? 01/08/2025 00:15 MCHC 34.1 Gm/dL ()?? 01/08/2025 00:15 Platelet Count 190 k/mm3 ()?? 01/08/2025 00:15 RDW-SD 43.3 femtoliters ()?? 01/08/2025 00:15 MPV 10.6 femtoliters ()?? 01/08/2025 00:15 Nucleated RBC (Automated) 0.0 #/100 WBC'S ()?? 01/08/2025 00:15 Abs. NRBC 0.0 k/mm3 ()?? 01/08/2025 00:15 Abs. Neut 4.6 k/mm3 ()?? 01/08/2025 00:15 Abs. Lymph 3.2 k/mm3 (High)?? 01/08/2025 00:15 Abs. [place] 1.3 k/mm3 ()?? 01/08/2025 00:15 Abs. Eo 0.1 k/mm3 ()?? 01/08/2025 00:15 Abs. Baso 0.0 k/mm3 ()?? 01/08/2025 00:15 Neut % 49.6 % ()?? 01/08/2025 00:15 Lymph % 34.6 % ()?? 01/08/2025 00:15 [place] % 13.8 % (High)?? 01/08/2025 00:15 Eos % 1.3 % ()?? 01/08/2025 00:15 Baso % 0.4 % ()?? 01/08/2025 00:15 Imm Gran 0.3 % ()?? 01/08/2025 00:15 Abs. Imm Gran 0.0 k/mm3 ()?? 01/08/2025 00:15 ?? CARDIAC High Sensitivity Troponin (HSTnT) <6 ng/L ()?? 01/08/2025 00:15 ?? CHEM GENERAL Sodium 135 mmol/L ()?? 01/08/2025 00:15 Potassium 4.1 mmol/L ()?? 01/08/2025 00:15 Chloride 101 mmol/L ()?? 01/08/2025 00:15 Bicarbonate Level 21 mmol/L (Low)?? 01/08/2025 00:15 Anion Gap 13 mmol/L ()?? 01/08/2025 00:15 Glucose Level 111 mg/dL (High)?? 01/08/2025 00:15 BUN 16 mg/dL ()?? 01/08/2025 00:15 Creatinine-Blood 0.85 mg/dL ()?? 01/08/2025 00:15 Estimated GFR Creatinine 109 ML/MIN/1.73 M2 ()?? 01/08/2025 00:15 Calcium 9.4 mg/dL ()?? 01/08/2025 00:15 Uric Acid 7.5 mg/dL ()?? 01/08/2025 00:15 C-Reactive Protein 7.9 mg/dL (High)?? 01/08/2025 00:15 ?? COAG INR 2.6 (High)?? 01/08/2025 00:15 Protime (PT) 24.8 seconds (High)?? 01/08/2025 00:15 ?? HEME OTHER Sed Rate 37 mm/hr (High)?? 01/08/2025 00:15 Hold Blue Top SPECIMEN DISCARDED AFTER 4 HOURS. ()?? 01/08/2025 00:15 ?? URINE OTHER Est Creatinine Clearance 116.41 mL/min ()?? 01/08/2025 01:10 ? Urinalysis Est Creatinine Clearance: 116.41 mL/min (01:10) ? EKG study * Event Display: ECG 12-Lead Authored Date: Please click on pdf link to open report * Event Display: ECG 12-Lead Authored Date: Ventricular Rate: 78 BPM Atrial Rate: 78 BPM P-R Interval: 172 ms QRS Duration: 100 ms Q-T Interval: 386 ms QTC Calculation(Bazett): 440 ms P [place]: 46 degrees R [place]: 48 degrees T [place]: 62 degrees Normal sinus rhythm with sinus arrhythmia Normal ECG When compared with ECG of 29-Jan-2022 09:48, No significant change was found Confirmed by MARSHA MAZARIEGOS, [facility] ([id number]) on 01/08/2025 10:31:55 AM [place]: MARSHA MAZARIEGOS,[facility] Progress note * Jeannie Vaughn MD: PERFORM Event Display: [facility] Authored Date: [id number] Patient: ??FABI, LUCIO ? Age:??44 Years?Sex:??Male?:??1980?? Subjective Continues to have pain, erythema, edema and??right wrist and right ankle??as well as right foot. Reports that right ankle??swelling??and erythema are better, however her right wrist is more swollen today??and painful He has??limited range of motion due to pain Pending cultures Review of Systems Negative except for the above Allergies Allergies ?(Active and Proposed Allergies Only) NKA? (Severity: Unknown severity, Onset: Unknown) ? Past Medical History No problems documented. ? Past Surgical History No surgery history documented. ? Social History No social history documented. ? Objective Vital Signs?? Temperature: 97.8 DegF (01/09/25 11:00:00) Temperature Route: Oral (01/09/25 11:00:00) Pulse Rate: 80 bpm (01/09/25 11:00:00) Respiratory Rate: 17 br/min (01/09/25 11:10:00) Systolic Blood Pressure:??140 mm Hg??High (01/09/25 11:00:00) Diastolic Blood Pressure: 83 mm Hg (01/09/25 11:00:00) Blood pressure sites: Arm, left (01/09/25 11:00:00) Mean Arterial Pressure: 79 mm Hg (01/09/25 07:03:00) Pulse Pressure: 57 mm Hg (01/09/25 11:00:00) Oxygen Saturation: 100 % (01/09/25 11:00:00) Mode of Delivery (Oxygen): Room air (01/09/25 11:00:00) Early Warning Score: 3 (01/09/25 11:44:07) ? Intake/Output? No Data Available ?? Mobility & Ambulation Level Mobility & Ambulation Level Ambulatory devices needed: None (01/08/25) ? Physical Exam General Appearance: The patient is a alert and awake, no acute distress, comfortable Eyes: EOMI. LEATHA. No scleral icterus. ENT: ??MM moist. Dentition intact. No erythema or exudates on throat. ?? Cardiovascular: RRR S1 and S2 heard with clicking of artificial valve heard Respiratory: ??Breath sounds clear to auscultation bilaterally. No wheezing. Good air movement throughout both lungs. GI: Soft. Nontender and nondistended. Normal bowel sounds present throughout abdomen. ??No rebound tenderness or other findings suggestive of an acute abdomen.?? MS: There is warmth, some redness and tenderness to palpation of right ankle joint, with limited range of motion.?? Similarly, there is warmth, tenderness to palpation and decreased range of motion of right wrist. Skin:??No rashes seen on chest, abdomen, or back. ? Neuro: ??No slurred speech. 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 ??Lower extremity strength equal bilaterally with 5/5 strength. ??Reflexes 2+ throughout. ?? Psych: Alert and oriented x3. Lines: Peripheral IV in place.?? _ Home Medications Metoprolol (metoprolol 50 mg oral tablet)??50 Milligram 1 tablet By Mouth 2 times a day Warfarin (warfarin 4 mg oral tablet)??By Mouth Daily DIRECTED BY PHYSICIAN. ? Inpatient Medications Medications (12) Active SCHEDULED: (5) Amoxicillin 875 mg/Clavulanate 125 mg Tablet (Augmentin 875 Tablet) ??1 tablet, By Mouth, 2 times aday Colchicine 0.6 mg Tablet (colchicine 0.6 mg oral tablet) ??0.6 mg, By Mouth, 2 times a day Metoprolol 50 mg Tablet (metoprolol 50 mg oral tablet) ??50 mg, By Mouth, 2 times a day NaCl 0.9% Flush 3ml (NaCL 0.9% Flush) ??3 mL, IV Push, Every 8 hours PredniSONE 20 mg Tablet (predniSONE 20 mg oral tablet) ??40 mg, By Mouth, Daily CONTINUOUS: (0) PRN: (7) Acetaminophen 325 mg Tablet (Acetaminophen Tablet) ??650 mg, By Mouth, Every 4 hours Docusate Sodium 100 mg Capsule (Docusate Sodium Capsule) ??100 mg 1 capsule, By Mouth, 2 times a day Melatonin 3 mg Tablet (Melatonin Tablet) ??3 mg, By Mouth, Daily at bedtime NaCl 0.9% Flush 3ml (NaCL 0.9% Flush) ??3 mL, IV Push, Every 8 hours OxyCODONE 5 mg IR Tablet (oxyCODONE 5 mg oral tablet) ??5 mg, By Mouth, Every 4 hours Polyethylene Glycol 17 Gm Powder (MiraLax Powder) ??17 Gm 1 pack/packet, By Mouth, Daily Senna Tablet ??8.6 mg 1 tablet, By Mouth, 2 times a day ? 72 Hour Antibiotic History Active Antibiotics Calendar Day Last Administered First Administered Amoxicillin-Clavulanate??1 tablet, By Mouth, 2 times a day ?2 01/09/2025 09:25 01/08/2025 14:46 ? Results Recent Labs BLOOD COUNT & DIFF WBC 9.4 k/mm3 ()?? 01/09/2025 02:30 RBC 4.74 m/mm3 ()?? 01/09/2025 02:30 Hgb 13.8 Gm/dL ()?? 01/09/2025 02:30 Hct 42.1 % ()?? 01/09/2025 02:30 MCV 88.8 femtoliters ()?? 01/09/2025 02:30 MCH 29.1 pg ()?? 01/09/2025 02:30 MCHC 32.8 Gm/dL (Low)?? 01/09/2025 02:30 Platelet Count 184 k/mm3 ()?? 01/09/2025 02:30 RDW-SD 44.4 femtoliters ()?? 01/09/2025 02:30 MPV 11.2 femtoliters ()?? 01/09/2025 02:30 Nucleated RBC (Automated) 0.0 #/100 WBC'S ()?? 01/09/2025 02:30 Abs. NRBC 0.0 k/mm3 ()?? 01/09/2025 02:30 Abs. Neut 4.6 k/mm3 ()?? 01/08/2025 00:15 Abs. Lymph 3.2 k/mm3 (High)?? 01/08/2025 00:15 Abs. [place] 1.3 k/mm3 ()?? 01/08/2025 00:15 Abs. Eo 0.1 k/mm3 ()?? 01/08/2025 00:15 Abs. Baso 0.0 k/mm3 ()?? 01/08/2025 00:15 Neut % 49.6 % ()?? 01/08/2025 00:15 Lymph % 34.6 % ()?? 01/08/2025 00:15 [place] % 13.8 % (High)?? 01/08/2025 00:15 Eos % 1.3 % ()?? 01/08/2025 00:15 Baso % 0.4 % ()?? 01/08/2025 00:15 Imm Gran 0.3 % ()?? 01/08/2025 00:15 Abs. Imm Gran 0.0 k/mm3 ()?? 01/08/2025 00:15 ?? CARDIAC High Sensitivity Troponin (HSTnT) <6 ng/L ()?? 01/08/2025 00:15 ?? CHEM GENERAL Sodium 135 mmol/L ()?? 01/09/2025 02:30 Potassium 4.2 mmol/L ()?? 01/09/2025 02:30 Chloride 103 mmol/L ()?? 01/09/2025 02:30 Bicarbonate Level 22 mmol/L ()?? 01/09/2025 02:30 Anion Gap 10 mmol/L ()?? 01/09/2025 02:30 Glucose Level 103 mg/dL (High)?? 01/09/2025 02:30 BUN 14 mg/dL ()?? 01/09/2025 02:30 Creatinine-Blood 0.61 mg/dL (Low)?? 01/09/2025 02:30 Estimated GFR Creatinine 121 ML/MIN/1.73 M2 ()?? 01/09/2025 02:30 Calcium 9.0 mg/dL ()?? 01/09/2025 02:30 Protein, Total 7.6 Gm/dL ()?? 01/08/2025 00:15 Albumin 4.3 Gm/dL ()?? 01/08/2025 00:15 Alkaline Phosphatase 81 units/L ()?? 01/08/2025 00:15 AST (SGOT) 31 units/L ()?? 01/08/2025 00:15 ALT (SGPT) 14 units/L ()?? 01/08/2025 00:15 Bilirubin, Total 1.3 mg/dL (High)?? 01/08/2025 00:15 Bilirubin, Direct 0.3 mg/dL ()?? 01/08/2025 00:15 Bilirubin, Indirect 1.0 mg/dL (High)?? 01/08/2025 00:15 Uric Acid 7.5 mg/dL ()?? 01/08/2025 00:15 C-Reactive Protein 7.9 mg/dL (High)?? 01/08/2025 00:15 ?? COAG INR 3.5 (High)?? 01/09/2025 02:30 Protime (PT) 32.5 seconds (High)?? 01/09/2025 02:30 ?? HEME OTHER Sed Rate 37 mm/hr (High)?? 01/08/2025 00:15 Hold Lavender Top SPECIMEN DISCARDED AFTER 24 HOURS. ()?? 01/08/2025 15:09 ?? IMMUNOLOGY GENERAL Rheumatoid Factor 11.0 IU/mL ()?? 01/08/2025 15:09 ?? URINE OTHER Est Creatinine Clearance 162.21 mL/min ()?? 01/09/2025 03:17 ? Abnormal Labs ?? BLOOD COUNT & DIFF Abs. NRBC?0.0 k/mm3 ()?01/09/2025 02:30 MCHC?32.8 Gm/dL (Low)?01/09/2025 02:30 Nucleated RBC (Automated)?0.0 #/100 WBC'S ()?01/09/2025 02:30 RDW-SD?44.4 femtoliters ()?01/09/2025 02:30 ?? CHEM GENERAL Creatinine-Blood?0.61 mg/dL (Low)?01/09/2025 02:30 Estimated GFR Creatinine?121 ML/MIN/1.73 M2 ()?01/09/2025 02:30 Glucose Level?103 mg/dL (High)?01/09/2025 02:30 ?? COAG INR?3.5 (High)?01/09/2025 02:30 Protime (PT)?32.5 seconds (High)?01/09/2025 02:30 ?? HEME OTHER Hold Lavender Top?SPECIMEN DISCARDED AFTER 24 HOURS. ()?01/08/2025 15:09 ?? IMMUNOLOGY GENERAL Rheumatoid Factor?11.0 IU/mL ()?01/08/2025 15:09 ?? Note: Critical results are displayed in red. ? Blood Glucose Trend Glucose Level:??103 mg/dL??High (01/09/25 02:30:00) ? Urinalysis Est Creatinine Clearance: 162.21 mL/min (03:17) ? Assessment/Plan 44-year-old gentleman with a past medical history of aortic valve replacement on Coumadin, hypertension on metoprolol who is presenting with atraumatic right foot pain and right hand pain started approximately 2 days ago.??Claims pain is 10/10 and he is unable to bear any weight on his right leg. Admitted for polyarthritis.??Diagnoses under evaluation ?? 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 States brother has a history of rheumatoid arthritis/ankylosing spondylitis.??He has elevated inflammatory markers, RA normal, CCP pending X-ray is nonacute but reports possible soft tissue involvement???cellulitis.??He is afebrile, no leukocytosis, however will empirically cover with Augmentin ?? If all of the above workup is negative, he will benefit from outpatient rheumatology eval Given AVR in the past, it is imperative to f/u??on cultures prior to dc to ensure not septic arthritis Start prednisone for now, monitor clinically ?? Hypertension (I10):??c/w metoprolol ?? Aortic valve replaced (Z95.2):??on coumadin??continue INR QD. currently supratherapeutic, coumadin to be?? held. Recheck INR tomorrow ?? VTE Prophylaxis:??On warfarin ?VTE Prophylaxis Assessment:??VTE Prophylaxis Ordered ?? Ongoing Medical Necessity:??pending sinovial fluid cx, started on prednisone ?? Code Status:??Full code ?Order Code Status:??Code Status Ordered ? Order Date/Time Order Action Order Name Order Detail 01/09/2025 10:58 Order PredniSONE 20 mg Tablet (predniSONE 20 mg oral tablet) 40 mg, By Mouth, Daily 01/09/2025 10:58 Modify OxyCODONE 5 mg IR Tablet (oxyCODONE 5 mg oral tablet) 5 mg, By Mouth, Every 4 hours, PRN: Pain , Moderate 01/09/2025 09:38 Discontinue Warfarin 3 mg Tablet (Warfarin Tablet) 6 mg, By Mouth, Every Tuesday, and Tuesday01/09/2025 09:38 Discontinue Warfarin 2 mg Tablet (Warfarin Tablet) 4 mg, By Mouth, Every Tuesday, Tuesday and Tuesday01/09/2025 09:37 Cancel Warfarin 3 mg Tablet (Warfarin Tablet) 6 mg, By Mouth, Every Tuesday01/09/2025 08:11 Order Change Attending, /DO Roderick MAZARIEGOS, Jeannie, 01/09/25 8:11:00 EST 01/09/2025 08:11 Discontinue Attending MD Gissel MAZARIEGOS, Christina Corea, 01/08/25 13:17:00 EST ? Consult note * Karli Pop: PERFORM Karli Pop: PERFORM, MODIFY Karli Pop: MODIFY Event Display: Consultation Note Authored Date: [id number] Patient: ??LUCIO DUNLAP ? Age:??44 Years?Sex:??Male?:??1980?? Chief Complaint/Reason for Consult Atraumatic polyarthropathy History of Present Illness Jaime?? is a most pleasant 44-year-old male with reported history of??mechanical aortic valve on Coumadin, presents to the ED at [facility] for evaluation of seemingly atraumatic polyarthropathy.?? He reportsinsidious onset of pain to the right wrist and ankle over the last??48 hours,??with progressive difficulty bearing weight??particularly about the??right foot in the last 24 hours.?? Presented to local urgent care yesterday where he had negative x-rays, and it was recommended he follow-up with his PCP or go to the ED for further evaluation. ?? He just returned from vacationing in the [place] on Tuesday; earlier that week had a few episodes of low-grade fevers that responded well to antipyretics. ??Otherwise denies any??other associated complaints.?? Denies history of crystal or septic arthropathy.?? He is monogamous with his . ?? Orthopedic consultation at the request of Ms. Guillermo PA-C for consideration of possible septic arthropathy. Review of Systems Denies fevers, chills or sweats. ??Denies chest pain. ??Denies other injuries or painful joints. ??All others as per HPI Physical Exam Vitals & Measurements T:??98.2?F?? HR:??63??(Peripheral)?? RR:??20?? BP:??132/81?? SpO2:??99%?? HT:??180??cm?? WT:??91??kg?? BMI:??28.09?? General:??Overall clinically well-appearing, nontoxic, no acute distress.?? Initially evaluated on reclining chair in [facility]. HEENT: Normocephalic, atraumatic Cardiac: Per primary team Pulmonary: Per primary team Abdomen: Per primary team ?? RUE: Faint blanchable erythema with a mild degree of nonpitting soft tissue edema about the dorsum??of the hand.?? Reproducible pain in this area with??passive extension at the wrist,??though he does not have any direct TTP??within the radiocarpal line.?? Otherwise nontender to palpation about the shoulder, humerus, elbow, forearm,??digits. ??Grossly neurovascularly intact. ?? LUE: Full, supple, nonpainful range of motion of shoulder, elbow, wrist and digits. ??No tendernessto palpation. Grossly neurovascularly intact radial, median, ulnar nerve distributions. ?? RLE: Faint blanchable erythema??with a mild degree of nonpitting soft tissue edema about the mid??dorsum of the??foot.?? Reproducible pain in this area with passive??dorsiflexion??at the ankle,??though he does not have any direct TTP within the tibiotalar??line??or bony prominences of the ankle.?? Otherwise nontender palpation about the hip, thigh, knee,??ankle and toes. ??Calf is supple nontender. ??Grossly neurovascularly intact. ?? LLE: Full, supple, non-painful range of motion of the hip, knee, foot and ankle. ??No tenderness topalpation. ??Calf supple and nontender. Active dorsiflexion and plantar flexion strength. ??Grosslyneurovascularly intact. Assessment/Plan Impression:??Atraumatic??extremity pain ?? Laboratories reassuring, demonstrating no leukocytosis or left shift.?? Mildly elevated ESR/CRP of 37 and 7.9, respectively.?? Uric acid 7.5.?? Negative??SIRS criteria. Acute gout diagnostic role score +7 indicating 31.2% prevalence of gout (male sex,??at least 1 cardiac risk factor [aortic valve replacement], serum uric acid > 5.88). ?? Procedure:??The entirety of the dorsal right wrist was thoroughly cleansed with ChloraPrep.?? Approximately??1.5 cc of equal parts 2% lidocaine/0.25% bupivacaine??injected for local analgesia.?? An 18-gauge needle was advanced via dorsal approach, just distal to??Susanna's tubercle.?? A scant amount (< 0.1 cc)??straw-colored, nonpurulent??aspirate collected.?? The needle was then withdrawn, adhesive bandage placed.?? The right ankle was then thoroughly cleansed with ChloraPrep.?? Approximately 1.5 cc of equal parts 2% lidocaine/0.25% duplicate injected for local analgesia. ??An 18-gauge needle was then advanced via??anterior/medial approach.?? Approximately 0.2 cc??of??straw-colored??aspirate containing??2???3??crystalloid substances??suspended within the aspirate.?? The needle was then withdrawn, adhesive bandage placed. ??Patient tolerated both procedures well, remained neurovascularly intact. ?? Plan: ??? No emergent orthopedic operative intervention indicated at this time. ??? Following conversation with the lab, unfortunately not enough aspirate collected??to run??entire??aspiration panel.?? Consider symptomatic treatment vs coverage for cellulitis -- pending definitive culture results. ??Consider tickborne etiology. ??? RICE ??? Weightbearing as tolerated ??? Should patient be admitted??for observation,??orthopedic??trauma service to follow. Problem List/Past Medical History Mechanical aortic valve Procedure/Surgical History No qualifying data available. Home Medications amiODARONE: See Instructions, 2 tablet By Mouth 2 times a day thru 07/07 then 1 tablet by mouth 2 times a day ??x 28 days Aspirin: 81 mg, By Mouth, Daily Colchicine: 0.6 mg = 1 tablet, By Mouth, 2 times a day Diltiazem: 120 mg = 1 capsule, By Mouth, Daily Furosemide: 40 mg = 1 tablet, By Mouth, Daily Metoprolol: 50 mg = 1 tablet, By Mouth, 2 times a day Warfarin: See Instructions, 1 tablet By Mouth Once tonight then as directed based on daily inr level Allergies NKA Family History No family history recorded. Radiology Three-view radiographs of the right foot independently reviewed, demonstrating a mild degree of soft tissue edema about the dorsum without obvious bony deformity or crepitus. Lab Results Labs Last 24 Hours BLOOD COUNT & DIFF ? Event Name?? Event Result?? Date/Time?? WBC 9.4 k/mm3 01/08/25 00:15:00 RBC 4.74 m/mm3 01/08/25 00:15:00 Hgb 14 Gm/dL 01/08/25 00:15:00 Hct 41 % 01/08/25 00:15:00 MCV 86.5 femtoliters 01/08/25 00:15:00 MCH 29.5 pg 01/08/25 00:15:00 MCHC 34.1 Gm/dL 01/08/25 00:15:00 Platelet Count 190 k/mm3 01/08/25 00:15:00 MPV 10.6 femtoliters 01/08/25 00:15:00 Nucleated RBC (Automated) 0 #/100 WBC'S 01/08/25 00:15:00 ? COAG ? Event Name?? Event Result?? Date/Time?? INR 2.6??High 01/08/25 00:15:00 Protime (PT) 24.8 seconds??High 01/08/25 00:15:00 ? CHEM GENERAL ? Event Name?? Event Result?? Date/Time?? Sodium 135 mmol/L 01/08/25 00:15:00 Chloride 101 mmol/L 01/08/25 00:15:00 Bicarbonate Level 21 mmol/L??Low 01/08/25 00:15:00 Anion Gap 13 mmol/L 01/08/25 00:15:00 Glucose Level 111 mg/dL??High 01/08/25 00:15:00 BUN 16 mg/dL 01/08/25 00:15:00 Creatinine-Blood 0.85 mg/dL 01/08/25 00:15:00 ? Note * Roderick MAZARIEGOS, Jeannie: PERFORM Event Display: Discharge/Transfer Note Hospital Authored Date: [id number] Patient: ??LUCIO DUNLAP ? Age:??44 Years?Sex:??Male?:??1980?? 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) Hypertension (I10) _ Discharge Medications Acetaminophen (acetaminophen 325 mg oral tablet)??975 Milligram 3 tablet By Mouth 3 times a day for10 Days Amoxicillin-Clavulanate (amoxicillin-clavulanate 875 mg-125 mg oral tablet)??875 Milligram By Mouth2 times a day for 5 Days Colchicine (colchicine 0.6 mg oral tablet)??0.6 Milligram By Mouth 2 times a day for 30 Days Metoprolol (metoprolol 50 mg oral tablet)??50 Milligram 1 tablet By Mouth 2 times a day Oxycodone (oxyCODONE 5 mg oral tablet)??5 Milligram By Mouth Every 4 hours as needed for 3 Days Pain , Moderate PredniSONE (predniSONE 20 mg oral tablet)??40 Milligram By Mouth Daily for 4 Days Warfarin (warfarin 4 mg oral tablet)??By Mouth Daily DIRECTED BY PHYSICIAN. ? Medications Started Tylenol Augmentin Colchicine Oxycodone Prednisone Medications Discontinued WARFARIN on hold -- discussed with patient. Allergies Allergies ?(Active and Proposed Allergies Only) NKA? (Severity: Unknown severity, Onset: Unknown) ? PCP Follow-Up/Heads-Up F/u for polyarticular arthritis. Objective Assessment and Plan ?44-year-old gentleman with a past medical history of aortic valve replacement on Coumadin, hypertension on metoprolol who is presenting with atraumatic right foot pain and right hand pain started approximately 2 days ago.??Claims pain is 10/10 and he is unable to bear any weight on his right leg. Admitted for polyarthritis.??Diagnoses under evaluation ?? 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 States brother has a history of rheumatoid arthritis/ankylosing spondylitis.??He has elevated inflammatory markers, RA normal, CCP pending X-ray is nonacute but reports possible soft tissue involvement???cellulitis.??He is afebrile, no leukocytosis, however will empirically cover with Augmentin ?? Cultures negative, gram stain negative. He will benefit from outpatient rheumatology eval Started on prednisone for 7 day course, continue antibiotics for cellulitis ? Hypertension (I10):??c/w metoprolol ?? Aortic valve replaced (Z95.2):??on coumadin??continue INR QD. currently supratherapeutic, coumadin to be?? held.??Recheck INR after discharge? Vital Signs?? Temperature: 97.7 DegF (01/10/25 10:30:00) Temperature Route: Oral (01/10/25 10:30:00) Pulse Rate: 55 bpm (01/10/25 10:30:00) Respiratory Rate: 20 br/min (01/10/25 10:54:00) Systolic Blood Pressure:??143 mm Hg??High (01/10/25 10:30:00) Diastolic Blood Pressure: 76 mm Hg (01/10/25 10:30:00) Blood pressure sites: Arm, left (01/10/25 10:30:00) Mean Arterial Pressure: 98 mm Hg (01/10/25 10:30:00) Pulse Pressure: 67 mm Hg (01/10/25 10:30:00) Oxygen Saturation: 100 % (01/10/25 10:30:00) Mode of Delivery (Oxygen): Room air (01/10/25 10:30:00) Early Warning Score: 3 (01/10/25 11:59:07) ? Mobility & Ambulation Level Mobility & Ambulation Level Ambulatory devices needed: None (01/08/25) ?? Therapeutic Activity Therapeutic Activities/Mobility/Balance?? No qualifying data available. ?? . Physical Exam General Appearance: The patient is a alert and awake, no acute distress, comfortable Eyes: EOMI. LEATHA. No scleral icterus. ENT: ??MM moist. Dentition intact. No erythema or exudates on throat. ?? Cardiovascular: RRR S1 and S2 heard with clicking of artificial valve heard Respiratory: ??Breath sounds clear to auscultation bilaterally. No wheezing. Good air movement throughout both lungs. GI: Soft. Nontender and nondistended. Normal bowel sounds present throughout abdomen. ??No rebound tenderness or other findings suggestive of an acute abdomen.?? MS: There is warmth, some redness and tenderness to palpation of right ankle joint, with limited range of motion.?? Similarly, there is warmth, tenderness to palpation and decreased range of motion of right wrist. Skin:??No rashes seen on chest, abdomen, or back. ? Neuro: ??No slurred speech. 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 ??Lower extremity strength equal bilaterally with 5/5 strength. ??Reflexes 2+ throughout. ?? Psych: Alert and oriented x3. Pending Results Add On Lab Order ordered on 01/08/2025 Add On Lab Order ordered on 01/08/2025 Add On Lab Order ordered on 01/08/2025 Add On Lab Order ordered on 01/08/2025 Add On Lab Order ordered on 01/08/2025 Body Fluid Cult Aer/Anaer w/Gram ordered on 01/08/2025 Body Fluid Cult Aer/Anaer w/Gram ordered on 01/08/2025 Citrulline Peptide (CCP) Ab, IgG/IgA ordered on 01/08/2025 INR ordered on 01/08/2025 Follow-Up Appointments Added Follow Up ?Time Frame ?Comments Hank MAZARIEGOS, Malina Rubio?1 week: call to discuss follow up visit Patient Instructions Your cultures were negative for bacterial infection Your INR is high at 3.8 -- please hold your warfarin for another day and have your INR checked outpatient within 1-2 days of discharge. If your INR is within therapeutic range, please follow your PCP/outpatient provider recommendations on coumadin dosing. Take pain medications, prednisone, colchicine and antibiotic as prescribed Follow up with your PCP after discharge and have them refer you to a opinion polls survey worker for further workup. Post Discharge Care Discharge ?01/10/25 14:15:00 EST ?Order Comment:?? Discharge Prescriptions ?ePrescribed, 01/10/25 14:15:00 EST ?Order Comment:?? Home Health Face to Face ^HomeHealthFTF Results Discharge Labs BACTERIOLOGY Gram Stain Isolate 1 Comment ()?? 01/08/2025 09:00 Gram Stain Isolate 2 No organisms seen ()?? 01/08/2025 09:00 Gram Stain Result Final report ()?? 01/08/2025 09:00 Body Fluid Culture Results Preliminary report ()?? 01/08/2025 09:00 Body Fluid Specimen Source ANKLE, RIGHT ()?? 01/08/2025 09:00 Body Fluid Culture Isolate 1 Comment ()?? 01/08/2025 09:00 ?? BLOOD COUNT & DIFF WBC 9.4 k/mm3 ()?? 01/09/2025 02:30 RBC 4.74 m/mm3 ()?? 01/09/2025 02:30 Hgb 13.8 Gm/dL ()?? 01/09/2025 02:30 Hct 42.1 % ()?? 01/09/2025 02:30 MCV 88.8 femtoliters ()?? 01/09/2025 02:30 MCH 29.1 pg ()?? 01/09/2025 02:30 MCHC 32.8 Gm/dL (Low)?? 01/09/2025 02:30 Platelet Count 184 k/mm3 ()?? 01/09/2025 02:30 RDW-SD 44.4 femtoliters ()?? 01/09/2025 02:30 MPV 11.2 femtoliters ()?? 01/09/2025 02:30 Nucleated RBC (Automated) 0.0 #/100 WBC'S ()?? 01/09/2025 02:30 Abs. NRBC 0.0 k/mm3 ()?? 01/09/2025 02:30 Abs. Neut 4.6 k/mm3 ()?? 01/08/2025 00:15 Abs. Lymph 3.2 k/mm3 (High)?? 01/08/2025 00:15 Abs. [place] 1.3 k/mm3 ()?? 01/08/2025 00:15 Abs. Eo 0.1 k/mm3 ()?? 01/08/2025 00:15 Abs. Baso 0.0 k/mm3 ()?? 01/08/2025 00:15 Neut % 49.6 % ()?? 01/08/2025 00:15 Lymph % 34.6 % ()?? 01/08/2025 00:15 [place] % 13.8 % (High)?? 01/08/2025 00:15 Eos % 1.3 % ()?? 01/08/2025 00:15 Baso % 0.4 % ()?? 01/08/2025 00:15 Imm Gran 0.3 % ()?? 01/08/2025 00:15 Abs. Imm Gran 0.0 k/mm3 ()?? 01/08/2025 00:15 ?? CARDIAC High Sensitivity Troponin (HSTnT) <6 ng/L ()?? 01/08/2025 00:15 ? CHEM GENERAL Sodium 135 mmol/L ()?? 01/09/2025 02:30 Potassium 4.2 mmol/L ()?? 01/09/2025 02:30 Chloride 103 mmol/L ()?? 01/09/2025 02:30 Bicarbonate Level 22 mmol/L ()?? 01/09/2025 02:30 Anion Gap 10 mmol/L ()?? 01/09/2025 02:30 Glucose Level 103 mg/dL (High)?? 01/09/2025 02:30 BUN 14 mg/dL ()?? 01/09/2025 02:30 Creatinine-Blood 0.61 mg/dL (Low)?? 01/09/2025 02:30 Estimated GFR Creatinine 121 ML/MIN/1.73 M2 ()?? 01/09/2025 02:30 Calcium 9.0 mg/dL ()?? 01/09/2025 02:30 Protein, Total 7.6 Gm/dL ()?? 01/08/2025 00:15 Albumin 4.3 Gm/dL ()?? 01/08/2025 00:15 Alkaline Phosphatase 81 units/L ()?? 01/08/2025 00:15 AST (SGOT) 31 units/L ()?? 01/08/2025 00:15 ALT (SGPT) 14 units/L ()?? 01/08/2025 00:15 Bilirubin, Total 1.3 mg/dL (High)?? 01/08/2025 00:15 Bilirubin, Direct 0.3 mg/dL ()?? 01/08/2025 00:15 Bilirubin, Indirect 1.0 mg/dL (High)?? 01/08/2025 00:15 Uric Acid 7.5 mg/dL ()?? 01/08/2025 00:15 C-Reactive Protein 7.9 mg/dL (High)?? 01/08/2025 00:15 ?? COAG INR 3.8 (High)?? 01/10/2025 00:42 Protime (PT) 35.3 seconds (High)?? 01/10/2025 00:42 ?? HEME OTHER Sed Rate 37 mm/hr (High)?? 01/08/2025 00:15 Hold Lavender Top SPECIMEN DISCARDED AFTER 24 HOURS. ()?? 01/08/2025 15:09 Hold Blue Top SPECIMEN DISCARDED AFTER 4 HOURS. ()?? 01/08/2025 00:15 ? IMMUNOLOGY GENERAL Rheumatoid Factor 11.0 IU/mL ()?? 01/08/2025 15:09 ? SEROLOGY INF DISEASE Chlamydia Trachomatis Amplified Probe NEGATIVE ()?? 01/08/2025 09:20 N. Gonorrhoeae Amplified Probe NEGATIVE ()?? 01/08/2025 09:20 Chlamydia / GC AMP Probe Specimen URINE ()?? 01/08/2025 09:20 ? URINE OTHER Est Creatinine Clearance 162.21 mL/min ()?? 01/09/2025 03:17 ? Microbiology ?? Chlamydia/Neisseria RNA, TMA, Ur/TP/Swab?? Completed?? Source: Urine Body Site: Urethra Collected Dt/Tm: 01/08/2025 09:02 Last Updated Dt/Tm: 01/09/2025 16:07 ?? Gram Smear Result?? Completed?? Source: Ankle Right Body Site: ?? Collected Dt/Tm: 01/08/2025 09:00 Last Updated Dt/Tm: 01/09/2025 23:11 ?? Gram Smear Result?? Completed?? Source: Wrist Right Body Site: ?? Collected Dt/Tm: 01/08/2025 09:00 Last Updated Dt/Tm: 01/09/2025 23:11 ?? Gram Stain/Body Fluid Culture Reflex?? Completed?? Source: Ankle Right Body Site: ?? Collected Dt/Tm: 01/08/2025 09:00 Last Updated Dt/Tm: 01/10/2025 13:06 ?? Gram Stain/Body Fluid Culture Reflex?? Completed?? Source: Wrist Right Body Site: ?? Collected Dt/Tm: 01/08/2025 09:00 Last Updated Dt/Tm: 01/10/2025 13:06 ? 40??minutes spent on discharge * Munir Talbert: PERFORM Event Display: Patient Education/Instruction Authored Date: [id number] Inpatient Adult Discharge Instructions. [address] [address] Name: LUCIO DUNLAP : 1980?? Visit: 01/07/2025 18:55?? Current Date: 01/10/2025 15:59 ?? Account: [id number]?? Inpatient Adult Discharge Instructions We would like to thank you for allowing us to assist you with your healthcare needs. The following includes patient education materials and information regarding your injury/illness. Our entire staffstrives to provide an excellent experience for our patients and their families. PLEASE ENSURE YOU FOLLOW-UP PER THE INSTRUCTIONS BELOW! ?? YOUR OPINION IS IMPORTANT TO US! Please complete the survey you may receive by mail or email. Your feedback will be used to make improvements to the healthcare experiences of our patients and their families. Surveys are administered by [employer], [employer]. ?? If further treatment with your primary care physician or another doctor is recommended, it is important for you to keep the appointment. Call your primary care physician or return to the Emergency Department immediately if your condition worsens, fails to improve, or new symptoms develop. If you need to find a doctor, you can call [facility] for a referral at [phone] or toll free at [phone] ([phone]) or log in to [email or web address] ?? [facility], in keeping with [facility] guidance, no longer requires face masks for staff, patientsor visitors in most situations. Similiar to time spent indoors at other locations, there is the chance that you were exposed to repiratory viruses during your time with us (such as flu or COVID-19). If you develop symptoms concerning for a viral respiratory infection, please seek testing (and treatment if indicated) from your medical provider or home test kit. ?? You can view and manage your care through the patient portal or by using a health care ilene of your choosing. [employer] is a website that allows you to securely view your medical information including your hospital discharge summary, office visit summaries, medications and follow-up visits. You can also request appointments, renew medications, and request access to your medical information using a health care ilene of your choosing, or just ask a question. You can enroll at [email or web address] or register during your next office visit. You have been discharged from [facility], Patient Care Unit: D3B??. If you have any questions regarding these instructions, including results of studies pending, afteryou leave, please call us and we will be happy to assist you 13/06. [facility] Your Care Team Attending Physician Jeannie Vaughn MD?? Consulting Providers Jeannie Vaughn MD?? Discharging Providers Jeannie Vaughn MD Reason for Your Visit r/o septic joint, suspected new gout?? Your Diagnosis Aortic valve replaced General medical Hypertension Polyarticular arthritis Tests Performed Below is a partial list of the tests performed during your hospitalization. You may have had other tests and procedures not included in this list. Please discuss all test results with your provider. Basic Metabolic Panel Body Fluid Cult Aer/Anaer w/Gram?-- Results Pending -- Body Fluid Culture Reflex BUN C-REACTIVE PROTEIN Calcium Level CBC CBC w/ Differential Chlamydia/Neisseria RNA, TMA, Ur/TP/Swab Creatinine Electrolytes Glucose Level Gram Stain Result HEPATIC FUNCTION PANEL High??Sensitivity??Troponin T Hold Blue Top Tube HOLD LAVENDER TUBE INR Rheumatoid Factor Qual SEDIMENTATION RATE,AUTOMATED URIC ACID XR Chest 2 Views Frontal and Lat XR Foot Min 3 Views Right Add On Lab Order?? BUN?? Basic Metabolic Panel?? Body Fluid Cult Aer/Anaer w/Gram?? C Reactive Protein (C-REACTIVE PROTEIN)?? CBC?? CBC w/ Differential?? Calcium Level?? Chlamydia/Neisseria RNA, TMA, Ur/TP/Swab?? Citrulline Peptide (CCP) Ab, IgG/IgA (Anti Citrulline Peptide (CCP) Ab)?? Creatinine?? Electrolytes?? Glucose Level?? Gram Smear Result (Gram Stain Result)?? Gram Stain/Body Fluid Culture Reflex (Body Fluid Culture Reflex)?? Hepatic Function Panel?? High??Sensitivity??Troponin T?? Hold Blue Top Tube?? Hold Lavender Top Tube (HOLD LAVENDER TUBE)?? INR?? Rheumatoid Factor Qual?? Sedimentation Rate (SEDIMENTATION RATE,AUTOMATED)?? Uric Acid?? Chest 2 Views Frontal and Lat (XR Chest 2 Views Frontal and Lat)?? Foot Min 3 Views Right (XR Foot Min 3 Views Right)?? Primary Care Provider Hank MAZARIEGOS, Malina Rubio? Advance Directive Health Care Proxy on File No Patient refuses to discuss Discharge Vitals Temperature: 97.7 DegF Height: 180 cm Pulse Rate: 55 bpm Weight: 90 kg Respiratory Rate: 20 br/min Body Mass Index:??27.78 kg/m2??High Systolic Blood Pressure:??143 mm Hg??High Body surface area: 2.12 Diastolic Blood Pressure: 76 mm Hg ?? Oxygen Saturation: 100 % ?? Studies Pending All studies ordered during this hospital stay have been completed unless listed below. Please discuss all pending results with your provider listed above in these instructions. ?? Add On Lab Order?? Body Fluid Cult Aer/Anaer w/Gram?? Citrulline Peptide (CCP) Ab, IgG/IgA (Anti Citrulline Peptide (CCP) Ab)?? INR?? What to do next Instructions From Your Doctor Your cultures were negative for bacterial infection Your INR is high at 3.8 -- please hold your warfarin for another day and have your INR checked outpatient within 1-2 days of discharge. If your INR is within therapeutic range, please follow your PCP/outpatient provider recommendations on coumadin dosing. Take pain medications, prednisone, colchicine and antibiotic as prescribed Follow up with your PCP after discharge and have them refer you to a opinion polls survey worker for further workup. ?? Orders? 01/10/25 14:15:00 EST?? Prescriptions??, ??01/10/25 14:15:00 EST?? You Need to Schedule the Following Appointments Follow Up with??Hank MAZARIEGOS, Malina Rubio When:??Within 1 week: call to discuss follow up visit Where: [address] [place] [address] Discharge Medications FABI, JOSE :1980 Visit Date:01/07/2025 Medications: Please continue your medications until treatment is completed or stopped by your provider. Medications not listed below should be discontinued. Discuss any questions related to medications with your provider. What How Much When Instructions Next Dose New Acetaminophen (acetaminophen 325 mg oral tablet) 3 tab(s) Oral 3 times a day Duration: 10 Days Pickup at [facility] Start New Amoxicillin-Clavulanate (amoxicillin-clavulanate 875 mg-125 mg oral tablet) 875 Milligram Oral Twice a day Duration: 5 Days Pickup at [facility] 01/10 at 9:00 pm New Colchicine (colchicine 0.6 mg oral tablet) 0.6 Milligram Oral Twice a day Duration: 30 Days Pickup at [facility] 01/10 at 9:00 pm New Oxycodone (oxyCODONE 5 mg oral tablet) 5 Milligram Oral Every 4 hours as needed for Pain , Moderate Duration: 3 Days Pickup at [facility] As needed New PredniSONE (predniSONE 20 mg oral tablet) 40 Milligram Oral Daily Duration: 4 Days Pickup at [facility] 01/11 Changed Warfarin (warfarin 4 mg oral tablet) Oral Daily DIRECTED BY PHYSICIAN. ?? As directed by physician Unchanged Metoprolol (metoprolol 50 mg oral tablet) 1 tab(s) Oral Twice a day 01/10 at 9:00 pm Pharmacy Information [facility]: [address] [place] [address] [phone] Prescription Given During Visit Acetaminophen (acetaminophen 325 mg oral tablet) - 3 tablet = 975 mg, By Mouth, 3 times a day, # 90tablet, 0 Refills, [facility], [address] [place] [address] [phone]?? Amoxicillin-Clavulanate (amoxicillin-clavulanate 875 mg-125 mg oral tablet) - 875 mg, By Mouth, 2 times a day, # 10 tablet, 0 Refills, [facility], [address] [place] [address] [phone]?? Colchicine (colchicine 0.6 mg oral tablet) - 0.6 mg, By Mouth, 2 times a day, # 30 tablet, 0 Refills, [facility], [address] [place] [address] [phone]?? Oxycodone (oxyCODONE 5 mg oral tablet) - 5 mg, By Mouth, Every 4 hours, # 18 tablet, 0 Refills, [facility], [address] [place] [address] [phone]?? PredniSONE (predniSONE 20 mg oral tablet) - 40 mg, By Mouth, Daily, # 8 tablet, 0 Refills, [facility], [address] [place] [address] [phone]?? Laboratory Results Below is a partial list of the most recent Laboratory test results done prior to this discharge. You may have had other tests and procedures not included in this list. Please discuss all test resultswith your provider. Est Creatinine Clearance - 162.21 mL/min (01/09/2025) Basic Metabolic Panel (01/08/2025) ???Sodium - 135 mmol/L???Potassium - 4.1 mmol/L???Chloride - 101 mmol/L???Bicarbonate Level - 21 mmol/L???Anion Gap - 13 mmol/L???Glucose Level - 111 mg/dL???BUN - 16 mg/dL???Creatinine-Blood - 0.85 mg/dL???Estimated GFR Creatinine - 109 ML/MIN/1.73 M2???Calcium - 9.4 mg/dL Body Fluid Culture Reflex (01/08/2025) ???Body Fluid Culture Isolate 1 - Comment BUN (01/09/2025) ???BUN - 14 mg/dL C-REACTIVE PROTEIN (01/08/2025) ???C-Reactive Protein - 7.9 mg/dL Calcium Level (01/09/2025) ???Calcium - 9.0 mg/dL CBC (01/09/2025) ???WBC - 9.4 k/mm3???RBC - 4.74 m/mm3???Hgb - 13.8 Gm/dL???Hct - 42.1 %???MCV - 88.8 femtoliters???MCH - 29.1 pg???MCHC - 32.8 Gm/dL???Platelet Count - 184 k/mm3???RDW-SD - 44.4 femtoliters???MPV - 11.2 femtoliters???Nucleated RBC (Automated) - 0.0 #/100 WBC'S???Abs. NRBC - 0.0 k/mm3 CBC w/ Differential (01/08/2025) ???WBC - 9.4 k/mm3???RBC - 4.74 m/mm3???Hgb - 14.0 Gm/dL???Hct - 41.0 %???MCV - 86.5 femtoliters???MCH - 29.5 pg???MCHC - 34.1 Gm/dL???Platelet Count - 190 k/mm3???RDW-SD - 43.3 femtoliters???MPV - 10.6 femtoliters???Nucleated RBC (Automated) - 0.0 #/100 WBC'S???Abs. NRBC - 0.0 k/mm3???Abs. Neut - 4.6 k/mm3???Abs. Lymph - 3.2 k/mm3???Abs. Butte - 1.3 k/mm3???Abs. Eo - 0.1 k/mm3???Abs. Baso - 0.0 k/mm3???Neut % - 49.6 %???Lymph % - 34.6 %???Butte % - 13.8 %???Eos % - 1.3 %???Baso % - 0.4 %???Imm Gran - 0.3 %???Abs. Imm Gran - 0.0 k/mm3 Chlamydia/Neisseria RNA, TMA, Ur/TP/Swab (01/08/2025) ???Chlamydia Trachomatis Amplified Probe - NEGATIVE???N. Gonorrhoeae Amplified Probe - NEGATIVE???Chlamydia / GC AMP Probe Specimen - URINE Creatinine (01/09/2025) ???Creatinine-Blood - 0.61 mg/dL???Estimated GFR Creatinine - 121 ML/MIN/1.73 M2 Electrolytes (01/09/2025) ???Sodium - 135 mmol/L???Potassium - 4.2 mmol/L???Chloride - 103 mmol/L???Bicarbonate Level - 22 mmol/L???Anion Gap - 10 mmol/L Glucose Level (01/09/2025) ???Glucose Level - 103 mg/dL Gram Stain Result (01/08/2025) ???Gram Stain Isolate 1 - Comment???Gram Stain Isolate 2 - No organisms seen HEPATIC FUNCTION PANEL (01/08/2025) ???Protein, Total - 7.6 Gm/dL???Albumin - 4.3 Gm/dL???Alkaline Phosphatase - 81 units/L???AST (SGOT) - 31 units/L???ALT (SGPT) - 14 units/L???Bilirubin, Total - 1.3 mg/dL???Bilirubin, Direct - 0.3 mg/dL???Bilirubin, Indirect - 1.0 mg/dL High??Sensitivity??Troponin T (01/08/2025) ? ?High Sensitivity Troponin (HSTnT) - <6 ng/L Hold Blue Top Tube (01/08/2025) ???Hold Blue Top - SPECIMEN DISCARDED AFTER 4 HOURS. HOLD LAVENDER TUBE (01/08/2025) ???Hold Lavender Top - SPECIMEN DISCARDED AFTER 24 HOURS. INR (01/10/2025) ???INR - 3.8???Protime (PT) - 35.3 seconds Rheumatoid Factor Qual (01/08/2025) ???Rheumatoid Factor - 11.0 IU/mL SEDIMENTATION RATE,AUTOMATED (01/08/2025) ???Sed Rate - 37 mm/hr URIC ACID (01/08/2025) ???Uric Acid - 7.5 mg/dL You will be contacted within 72 hours with your results. Allergies (NKA means No Known Allergies) NKA Problems No qualifying data available Education Materials Below is the list of Educational Leaflet Providered with your Discharge Instructions. Valuables and Belongings I fully understand and agree that [facility] accepts no responsibility for all my personal property including clothing, toilet articles, radios, jewelry, dentures, hearing aids, rings, money, or any other property that is in my possession or is brought to me after admission. I understand certain valuables may be placed in a hospital safe for a short period of time. I understand that the hospital is not liable for loss or damage due to accident, fire, or other natural occurrence while said property is in the safe. I accept full responsibility for any personal property that I keep with me, and will not hold the hospital responsible in case of loss or disappearance. I acknowledge that i have been encouraged to send valuables and belongings home. ?? Date for Pt to Sign Valuables/Belongings: 01/08/25 10:03:00 ?? Other Discharge Information ? Pulmonary Rehab Status?? Pulmonary Rehab Discharge Status?? Respiratory Rate: 20 br/min ? Common Emergency Awareness Tips IS IT A STROKE? Act FAST and Check for these signs: FACE Does the face look uneven? ARM Does one arm drift down? SPEECH Does their speech sound strange? TIME Call at any sign of stroke ?? Heart Attack Signs Chest discomfort: Most heart attacks involve discomfort in the center of the chest and lasts more than a few minutes, or goes away and comes back. It can feel like uncomfortable pressure, squeezing, fullness or pain. Discomfort in upper body: Symptoms can include pain or discomfort in one or both arms, back, neck, jaw or stomach. Shortness of breath: With or without discomfort. Other signs: Breaking out in a cold sweat, nausea, or lightheaded. Remember, MINUTES DO MATTER. If you experience any of these heart attack warning signs, call to get immediate medical attention! ?? Smoking can increase your chances of developing chronic health problems and can cause harmful effects to other family members in your house. If you smoke, you are strongly encouraged to quit. Please call [facility] at [phone] or [phone] ([phone]) or log in to [email or web address] for referrals to smoking cessation programs. ?? 616 Suicide & Crisis Lifeline is available 13/06 if you or someone you know needs to find a reason to keep living. By calling 378 you'll be connected to a skilled, trained counselor at a crisis center in your area. INPATIENT DISCHARGE INSTRUCTIONS SIGNATURE PAGE LUCIO DUNLAP Location:[facility] Registration Date and Time:01/07/2025 18:55 EST Primary Care Physician: Malina Mckinney MD, Attending Physician: Roderick MAZARIEGOS, Jeannie, I FABILUCIO POZO, have received the above patient education materials/instructions and have verbalized understanding. If ambulance or transport services are being used I further acknowledge being given a choice of service. ?? If you need to contact me, please call me at this number: . Patient/Machine Sprayer Name: Patient/Machine Sprayer Signature: Relationship to Patient: Witness Name/Signature: Date: Patient Care team information Care Team Personnel Name: Malina Mckinney MD Position: [facility] Outreach Member Role: PCP [address]: [address] [place] [address] Telecom: Name: April Green RN Position: [facility] Portfolio Management Marketing Member Role: Primary Care Nurse Name: Munir Talbert Position: [facility] RN Member Role: Primary Care Nurse Name: Yani Alan RN Position: [facility] RN Member Role: Primary Care Nurse Name: Saturnino Rausch RN Position: [facility] RN Member Role: Primary Care Nurse Name: Mary Echavarria RN Position: [facility] RN Member Role: Primary Care Nurse Care Team Related Persons Name: RAHEEM ONEIL Insurance Providers Guarantor name: [employer]FF[employer] Health Plan Information #: 1 Payer: [employer] Member Number: [id number] Policy Number: BUFFY Group Number: [id number] Health Plan Information #: 2 Payer: [employer] Member Number: [id number] Policy Number: BUFFY Group Number: [id number]
--- OUTSIDE RECORDS SUMMARY | 2025-01-11 15:26 | XMS_ITS | Encounter Summary ---
Author Organization [employer] Address [address] [facility] 7[address] [place] [address] Care Team Providers Care Technician'S Helper Name Role Phone Malina Mckinney MD Primary Care Provider + Reason for Visit * Reason Onset Date Comments INR results 12/07/2023 Encounter Details Date Type Department Care Team ([facility] st Contact Info) Description 12/07/2023 Telephone [facility] [address] [place] [address] America Chirinos, DDS [address] [place] [address] INR results Social History Tobacco Use Types Packs/Day Years [...] encounter Miscellaneous Notes * Telephone Encounter - Melody Odell - 12/07/2023 3:53 PM EST Ramya from [facility] is faxing over INR results for patient coming intomorrow 12/08/2023 documented in this encounter Plan of Treatment Not on file documented as of this encounter Visit Diagnoses Not on filedocumented in this encounter Care Teams Technician'S Helper Relationship Specialty Start Date End Date Malina Mckinney MD [address] [place] [id number] PCP - General Family Medicine 05/05/18 documented as of this encounter
--- OUTSIDE RECORDS SUMMARY | 2025-01-11 15:26 | XMS_ITS | Encounter Summary ---
Author Organization [employer] Address [address] [place] [address] 7 [place] [address] Care Team Providers Care Telesales Representative Name Role Phone Malina Mckinney MD Primary Care Provider + Reason for Referral * Imaging (Urgent) - Closed Specialty Diagnoses / Procedures Referred By Contac t Referred To Contact Cardiology Diagnoses Edema of right lower extremity Procedures Vascular US lower extremity venous duplex right Brett Kwon MD [address] [place] [address] Phone: tel: fax: [facility] Referral ID Status Reason Start Date Expiration Date V isits Requested Visits Authorized [id number] Closed Perform Procedure 05/01/2024 05/01/2025 1 1 Encounter Details Date Type Department Care Team (Late st Contact Info) Description 05/01/2024 Orders Only [facility] MED [facility] PEDS [address] [place] [address] Brett Kwon MD [address] [place] [address] Edema of right lower extremity (Primary Dx) Social History Tobacco Use Types Packs/Day Years [...] on file documented as of this encounter Procedures Procedure Name Priority Date/Time Associated Diagnosis Comments US VENOUS DUPLEX LE RT Routine 05/02/2024 11:04 AM EDT documented in this encounter Results * US VENOUS DUPLEX LE RT (05/02/2024 11:04 AM EDT) Anatomical Region Laterality Modality Abdomen Ultrasound 05/02/2024 11:0 4 AM EDT Narrative 05/02/2024 2:06 PM EDT ? [facility] ?[address] ?[place] [address] ? Ultrasound Report ? Signed ? Patient: Keisha,Darwin ?MR#: [id number] ?? [id number] ? : 1980 ?Acct:[id number] ? Age/Sex: 43 / M ?ADM Date: 06/12/24 ? Loc: HO.US ? Attending Dr: Brett Kwon MD ? Ordering Physician: Brett Kwon MD ?? Date of Service: 05/02/24 ?? Procedure(s): US venous duplex LE RT ?? Accession Number(s): [id number] ? cc: Brett Kwon MD; Malina Mckinney MD ? EXAMINATION: ? US VENOUS ULTRASOUND WITH DOPPLER LOWER EXTREMITY, RIGHT ? CLINICAL INFORMATION: ? Right lower extremity edema ? COMPARISON: ? None available. ? TECHNIQUE: ?? Ultrasound of the deep veins is performed from the hip to the calf with ?? compression sonography and color and pulse Doppler assessment. Spectral ?? analysis with color-flow imaging is performed. ? FINDINGS: ?? There is normal venous compression and respiratory variation and ?? augmented flow. The visualized common femoral vein, superficial femoral ?? vein, profunda femoral vein, popliteal vein, and the trifurcation ?? region shows no evidence of deep venous thrombosis. ?? There is no ?? significant popliteal fossa cyst. 2 right groin lymph nodes are present ?? measuring 2.0 x 2.5 x 1.2 cm and 1.9 x 0.5 x 1.0 cm. They have normal ?? architecture and do not appear pathologic. ? If the patient's symptoms persist, followup ultrasound in 5 days 7 days ?? might be of value to exclude proximal propagation from a non-visualized ?? calf vein. ? US/US venous duplex LE RT ?? IMPRESSION: ?? No DVT demonstrated in the right lower extremity. ? Dictated By: ?Arvin Li MD ? Signed By: ?<Electronically signed by Arvin Li MD in OV> ? 05/02/24 1403 ? DD/ 1104 ? TD/TT: ? Incinerator Plant Supervisor: SS ? Procedure Note Peewee Malcolm - 05/02/[address] [address] Ultrasound Report Signed Patient: Jamie Valdes R#: [id number] : 1980Acct:[id number] Age/Sex: 43 / MADM Date: 05/02/24 Loc: HO.US Attending Dr: Brett Kwon MD Ordering Physician: Brett Kwon MD Date of Service: 05/02/24 Procedure(s): US venous duplex LE RT Accession Number(s): [id number] cc: Brett Kwon MD; Malina Mckinney MD EXAMINATION: US VENOUS ULTRASOUND WITH DOPPLER LOWER EXTREMITY, RIGHT CLINICAL INFORMATION: Right lower extremity edema COMPARISON: None available. TECHNIQUE: Ultrasound of the deep veins is performed from the hip to the calf with compression sonography and color and pulse Doppler assessment. Spectral analysis with color-flow imaging is performed. FINDINGS: There is normal venous compression and respiratory variation and augmented flow. The visualized common femoral vein, superficial femoral vein, profunda femoral vein, popliteal vein, and the trifurcation region shows no evidence of deep venous thrombosis. There is no significant popliteal fossa cyst. 2 right groin lymph nodes are present measuring 2.0 x 2.5 x 1.2 cm and 1.9 x 0.5 x 1.0 cm. They have normal architecture and do not appear pathologic. If the patient's symptoms persist, followup ultrasound in 5 days 7 days might be of value to exclude proximal propagation from a non-visualized calf vein. US/US venous duplex LE RT IMPRESSION: No DVT demonstrated in the right lower extremity. Dictated By: Arvin Li MD Signed By: <Electronically signed by Arvin Li MD in OV> 05/02/24 1403 DD/ 1104 TD/TT: Incinerator Plant Supervisor: SS us Brett Kwon MD IMG US PROCEDURES Final Res ult documented in this encounter Visit Diagnoses Diagnosis Edema of right lower extremity- Primary documented in this encounter Care Teams Telesales Representative Relationship Specialty Start Date End Date Malina Mckinney MD [address] [place] [phone] PCP - General Family Medicine 05/05/18 documented as of this encounter
--- OUTSIDE RECORDS SUMMARY | 2025-01-11 15:26 | XMS_ITS | Clinical Summary ---
Author Organization [email or web address] Address [address] [place] [address] 7t [place] [address] Care Team Providers Care Tan Room Supervisor Name Role Phone Malina Mckinney MD Primary Care Provider + Allergies No known active allergies Medications warfarin (Coumadin) 3 MG tablet See Instructions, 1 tablet By Mouth Once tonight then as directed based on daily inr level, # 30 tablet, 0 Refills, Soft Stop, 06/16/21 8:04:00 EDT, Tablet, [facility], Partial fill upon patient request if the prescription is for a sched... 1 Active metoprolol tartrate (Lopressor) 50 MG tablet Take 1 tablet by mouth every 12 (twelve) hours. 1 Active Active Problems Problem Noted Date Diagnosed Date Bilateral leg edema 05/29/2024 Venous insufficiency (chronic) (peripheral) 07/2024 Assessment & Plan (11/22/2024 5:21 PM EST): Improved with compression stockings. Continue to wear LETTY stockings and re consult prn. Assessment & Plan (05/29/2024 12:26 PM EDT): - advised to use compression stockings and f/u with me in 3 months - we discussed about increased exercise, keeping a healthy weight and avoiding smoking Localized gingival recession, minimal 12/08/2023 Periodontal disease 10/27/2023 Dental calculus 10/27/2023 Vitamin D deficiency 09/21/2023 Assessment & Plan (11/22/2024 5:21 PM EST): Check Vit D levels. Assessment & Plan (09/22/2023 5:44 PM EDT): -Increased Sun exposure 30 minutes p/day. -Follow up vitamin D in 6-8 months. Left anterior knee pain 08/10/2023 Pure hypercholesterolemia 08/10/2023 Assessment & Plan (11/22/2024 5:34 PM EST): Repeat lipid We discussed re rx options, he still doesn't want to take meds, we'll repeat lipid profile. Recommended moderate amount of exercise and increase consumption of fruit, vegetables, fish and high fiber foods. Should decrease consumption of highly saturated fats or trans fats. Assessment & Plan (09/22/2023 5:44 PM EDT): -Patient does not want to start medication -We discussed re rx options. -Recommended moderate amount of exercise and increased consumption of fruit, vegetables, fish and high fiber foods. -We discussed about avoiding consumption of highly saturated fats or trans fats. FU lipids in 6m Acute pain of both shoulders 08/10/2023 Balanitis 08/10/2023 Neck pain 08/10/2023 Influenza-like symptoms 08/09/2023 History of aortic valve replacement 08/09/2023 Assessment & Plan (11/22/2024 5:20 PM EST): -He is on cumadin followed by the [facility]. INR goal is 2.5-3.5 -Recommend amoxicillin 1 - 2 grams, 1h AC invasive procedure including dental. -Will need to stop coumadin 4 days prior to procedure and check INR 2 days later. He will need LMWH bridging: start Lovenox 100 mg BID 48 hours prior to procedure and hold it 24 hours prior. Coumadin can be restarted 24 hours after procedure and continue lovenox until INR is therapeutic for 2 consecutive days. Assessment & Plan (09/27/2023 8:26 PM EST): -He is on cumadin followed by the [facility]. INR goal is 2.5-3.5 -Recommend amoxicillin 1 - 2 grams, 1h AC procedure. -Will need to stop coumadin 4 days prior to procedure and check INR 2 days later. He will need LMWH bridging: start Lovenox 100 mg BID 48 hours prior to procedure and hold it 24 hours prior. Coumadin can be restarted 24 hours after procedure and continue lovenox until INR is therapeutic for 2 consecutive days. Rectal/anal ulcer 05/05/2018 Assessment & Plan (09/22/2023 5:42 PM EDT): -Rectal ulcer did not improve with creams Uveitis 05/05/2018 Encounters Date Type Department Care Team Description 12/21/2024 Telephone [facility] [address] [place] [address] Malina Mckinney MD February11/22/2024 Orders Only GENERIC EXTERNAL DATA DEPARTMENT Provider, Generic External Data 10/25/2024 Orders Only GENERIC EXTERNAL DATA DEPARTMENT Provider, Generic External Data from Last 3 Months Immunizations Name Administration Dates Next Due INFLUENZA INJECTABLE QUADRIV ALANT CCIIV4 MDCK Multi-dose vial 09/27/2018 Influenza injectable quadrivalent preservative f ree 08/27/2021 Influenza, IIV3, injectable 08/20/2017 Influenza, seasonal, injectable, preservative fr ee 08/30/2024 Social History Tobacco Use Types Packs/Day Years Used Date Smoking Tobacco: Never Smokeless Tobacco: Never Tobacco Cessation:Counseling Given: Not Answered Alcohol Use Standard Drinks/Week Comments Not Currently [...] not to disclose 2021 10:33 AM EDT Last Filed Vital Signs Vital Sign Reading Time Taken Comments Blood Pressure 132/77 08/30/2024 9:50 AM EDT Pulse 58 08/30/2024 9:50 AM EDT Temperature 36.1 ??C (97 ??F) 08/30/2024 9:50 AM EDT Respiratory Rate 16 08/30/2024 9:50 AM EDT Oxygen Saturation 98% 08/30/2024 9:50 AM EDT Inhaled Oxygen Concentration - - Weight 91.9 kg (202 lb 8 oz) 08/30/2024 9:50 AM EDT Height 180.3 cm (5' 11 ) 08/30/2024 9:50 AM EDT Body Mass Index 28.24 08/30/2024 9:50 AM EDT Plan of Treatment Health Maintenance Due Date Last Done Comments CT Colonography 1979 Colonoscopy 1979 Colorectal Cancer Screening 1979 FIT DNA/Cologuard 1979 FIT 1979 FOBT 1979 HIV Screening 1979 Sigmoidoscopy 1979 Alcohol/Substance Use Screening 1991 Family Planning (PISQ) 1994 Hepatitis C Screening 1997 DTaP/Tdap/Td Vaccines (1 - Tdap) 1998 Hepatitis B Vaccines (1 of 3 - 19+ 3-dose series) 1998 Dental Oral Exam 03/29/2024 09/28/2023 Dental Prophylaxis 06/08/2024 12/08/2023 COVID-19 Vaccine ( season) 2024 12/22/2021, 03/03/2021, 02/10/2021 Dental X-Ray: Bitewings 09/29/2024 09/28/2023 Depression Screening 05/29/2025 05/29/2024, 05/29/20 24 SDOH Screening 08/30/2025 08/30/2024 Tobacco Screening 08/30/2025 08/30/2024 Dental X-Ray: Full Mouth 09/29/2026 09/28/2023 Lipid Panel 08/18/2028 08/18/2023, 07/16/2022 Zoster Vaccines (1 of 2) 2029 RSV Patients and Patients Aged 60 years or older (1 - 1-dose 75+ series) 2054 Influenza Vaccine Completed 08/30/2024, , 09/27/2018, Additional history exists HIB Vaccines Aged Out No longer eligi ble based on patient's age to complete this topic HPV Vaccines Aged Out No longer eligi ble based on patient's age to complete this topic Hepatitis A Vaccines Aged Out No long er eligible based on patient's age to complete this topic IPV Vaccines Aged Out No longer eligi ble based on patient's age to complete this topic Meningococcal Vaccine Aged Out No flakita david eligible based on patient's age to complete this topic Pneumococcal Vaccine: Pediatrics (0 to 5 Years) and At-Risk Patients (6 to 49) Years) Aged Out No longer eligible based on patient's age to complete this topic RSV under 20 months Aged Out No longe r eligible based on patient's age to complete this topic Rotavirus Vaccines Aged Out No longer eligible based on patient's age to complete this topic Procedures Procedure Name Priority Date/Time Associated Diagnosis Comments PROTHROMBIN TIME WHOLE BLD POC Routine 11/22/2024 9:29 AM EST ~PT, ~INR - ANTI COAG CLINIC Routine 11/22/2024 9:29 AM EST PROTHROMBIN TIME WHOLE BLD POC Routine 10/25/2024 9:19 AM EST ~PT, ~INR - ANTI COAG CLINIC Routine 10/25/2024 9:19 AM EST PROPHYLAXIS - ADULT Routine 12/08/2023 11:00 AM EST Dental calculus Periodontal disease INTRAORAL - COMPLETE SERIES OF RADIOGRAPHIC IMAGES Routine 09/28/2023 3:00 PM EST Dental caries Encounter for dental examination Periodontal disease Dental calculus COMPREHENSIVE ORAL EVALUATION - NEW OR ESTABLISHED PATIENT Routine 09/28/2023 3:00 PM EST Dental caries Encounter for dental examination Periodontal disease Dental calculus LIPID PANEL WITH REFLEX TO DIRECT LDL Routine 08/18/2023 9:08 AM EDT Pure hypercholesterolemia from Last 3 Months or Most Recently Relevant to Health Maintenance Results * (ABNORMAL) PROTHROMBIN TIME WHOLE BLD POC (11/22/2024 9:29 AM EST) Only the most recent of2 resultswithin the time period is included. Protime 50.3(H) 11.1 - 13.5 sec [facility] 11/22/2024 9:29 AM EST 11/22/2024 9:32 AM EST us Generic External Data Provider LAB BLOOD ORDERAB LES Final Result Performing Organization Address City/State/[facility] Co de Phone Number [facility] [address] [place] [phone] * (ABNORMAL) ~PT, ~INR - ANTI COAG CLINIC (11/22/2024 9:29 AM EST) Only the most recent of2 resultswithin the time period is included. Prothrombin Time INR 4.2(H) 0.9 - 1.1 [facility] Comment:METER #: [id number] TERNATIONAL NORMALIZED RATIO (INR) REFERENCE RANGES Reference RangeFor patients not on anticoagulant therapy: 0.9 - 1.1INR ranges for oral anticoagulanttherapy:For prevention and treatment of venous thrombosis and pulmonary embolism: 2.0 - 3.0For acute myocardial infarction with aspirin therapy: 2.0 - 3.0For acute myocardial infarction without aspirin therapy: 3.0 - 4.0For patients with mechanical prosthetic heart valves: 2.5 - 3.5 11/22/2024 9:29 AM EST 11/22/2024 9:32 AM EST us Generic External Data Provider LAB BLOOD ORDERAB LES Final Result Performing Organization Address [facility]/ZIP Co de Phone Number [facility] [address] [place] [address] [phone] * (ABNORMAL) Lipid Panel with Reflex to Direct LDL (08/18/2023 9:08 AM EDT) Triglycerides 111 <150 mg/dL [facility] Comment:Desirable Triglyceri de: less than 150 mg/dLBorderline High Triglyceride 150-199 mg/dLHigh Triglyceride: 200-499 mg/dLVery High Triglyceride: greater than or equal to 5OO mg/dL Cholesterol 212(H) <200 mg/dL [facility] Comment:Desirable Cholestero l: less than 200 mg/dLBorderline High Cholesterol: 200-239 mg/dLHigh Cholesterol: greater than 239 mg/dL LDL Cholesterol Calculated 151(H) <100 mg/dL [facility] Comment:Desirable LDL: less than 100 mg/dLNear Optimal/Above Optimal LDL: 110- 129 mg/dLBorderline High LDL: 130-159 mg/dLHigh LDL: 160-189 mg/dLVery High LDL: greater than or equal to 190 mg/dL HDL Cholesterol 39(L) >40 mg/dL [facility] Comment:Desirable HDL: great er than 40 mg/dL Note: This HDL assay may give artificially low results in patients with liver disease. Blood 08/18/2023 9:08 AM EDT 08/18/2023 11:03 AM EDT us Malina Mckinney MD LAB BLOOD ORDERABLES Fin al Result Performing Organization Address City/[facility]/ZIP Co de Phone Number [facility] [address] [place] [address] [phone] from Last 3 Months or Most Recently Relevant to Health Maintenance Insurance BCBS PPO [facility] Care Teams Tan Room Supervisor Relationship Specialty Start Date End Date Malina Mckinney MD [address] [place] [phone] PCP - General Family Medicine 05/05/18
--- NOTE | 2025-01-11 15:30 | MHC.OFFVISCO ---
Intake Intake Visit Reasons: Anticoagulation Allergies No Known Allergies Allergy (Verified 01/11/25 15:25) Medication List - Last Reconciled 01/11/25 by Isabel Ricks, RN chlorhexidine gluconate 0.12% PO metoprolol tartrate 50 mg PO BID warfarin 4 mg See Protocol PO DAILY Nursing Note INR: 2.4 therapeutic range 2.5-3.5 ( previous Inr 2.6-3.5-3.8) Medications and supplements reviewed Admitted for gout s/p vacation at [facility]- first r/o infection due to swelling he had in hand and ankle - uric acid level elevated - -Prednisone 40mg x 5 days -Amoxicillin x 5 days -Tyelnol prn pain -colchine x 30 days Denies any signs and symptoms of bleeding or bruising or clotting. Bleeding, bruising, clotting discussed Nutritional guidance given Dose: pt held dose yesterday, 4mg today 6mg tue 6mg tuesday 2mg tuesday 6mg tuesday F/U INR: 01/16/25 Wed due to work schedule Patient verbalizes understanding of instructions given with read back Anti-Coag Initial Assessment Social Hx Patient Tobacco Use Status: Never used Tobacco alcohol intake: current Alcohol intake frequency: a few times a week Cardiovascular Hx: Other Lung Disease HX: Other GI Hx: Other Cancer HX: No Psych. Illness/Depression: No Coding Level of Care Code Est Patient Level 1 Diagnoses Current use of anticoagulant therapy Z79.01 Assessment & Plan Assessment & Plan (1) Current use of anticoagulant therapy: Code(s): Z79.01 - half-way (current) use of anticoagulants Category: Medical
[2025-01-11 15:40] LABS: Prothrombin Time Whole Bld POC 28.9 sec (11.1-13.5); ~PT, ~INR - Anti Coag Clinic 2.4 (0.9-1.1)
== END 2025-01-11 16:18 | disposition home or self-care (01) ==
LOC: HO.ACS 15:23
PROVIDERS: PCP Internal Medicine; Visit Provider Internal Medicine
DX: Z79.01 Long term (current) use of anticoagulants (principal)

== ENCOUNTER → 2025-01-11 15:23 | Outpatient (BNVA) | payer BC, SELFPAY | PROVIDERS: PCP Internal Medicine; Visit Provider Internal Medicine | DX: Z95.2 Presence of prosthetic heart valve (principal); Z79.01 Long term (current) use of anticoagulants; Z51.81 Encounter for therapeutic drug level monitoring | CPT/HCPCS: 85610; 99211 ==

== ENCOUNTER 2025-01-16 09:14 | Outpatient (AMB) | payer BC, SELFPAY ==
[2025-01-16 09:32] LABS: Prothrombin Time Whole Bld POC 41.1 sec (11.1-13.5); ~PT, ~INR - Anti Coag Clinic 3.4 (0.9-1.1)
--- NOTE | 2025-01-16 09:42 | MHC.OFFVISCO ---
Intake Intake Visit Reasons: Anticoagulation Allergies No Known Allergies Allergy (Verified 01/16/25 09:24) Medication List - Last Reconciled 01/16/25 by Aislinn Lopez RN chlorhexidine gluconate 0.12% PO metoprolol tartrate 50 mg PO BID warfarin 4 mg See Protocol PO DAILY Nursing Note PT.HAS HAD NEW ONSET OF GOUT (L) FOOT AND (R) WRIST. HE IS DONE WITH PREDNISONE AND AMOXICILLIN, AND REMAINS ON COLCHICINE. PT.STATES THAT HE IS SEEKING A RHEUMATOLOGY CONSULT. WILL CONTINUE PRESENT WEEKLY DOSE AND FOLLOW-UP IN 1 WEEK GOOD UNDERSTANDING OF DOSING INSTR. Anti-Coag Initial Assessment Social Hx Patient Tobacco Use Status: Never used Tobacco alcohol intake: current Alcohol intake frequency: a few times a week Cardiovascular Hx: Other Lung Disease HX: Other GI Hx: Other Cancer HX: No Psych. Illness/Depression: No Coding Level of Care Code Est Patient Level 1 Diagnoses Current use of anticoagulant therapy Z79.01 Assessment & Plan Assessment & Plan (1) Current use of anticoagulant therapy: Code(s): Z79.01 - medical terminologist (current) use of anticoagulants Category: Medical
--- OUTSIDE RECORDS SUMMARY | 2025-01-16 10:15 | XMS_ITS | Encounter Summary ---
Author Organization [employer] Address [address] [facility] 7t [place] [address] Care Team Providers Care Development And Housing Director Name Role Phone Malina Mckinney MD Primary Care Provider + Reason for Visit * Reason Onset Date Comments February12/21/2024 Encounter Details Date Type Department Care Team ([facility] st Contact Info) Description 12/21/2024 Telephone [facility] [address] [place], [place] [phone] Malina Mckinney MD [address] [place] [address] February recall Social History Tobacco Use Types [...] t he electric, gas, oil or water [employer] threatened to shut off services in your [...] documented in this encounter Plan of Treatment Upcoming Encounters Date Type Department Care Team (Late st Contact Info) Description 01/30/2025 9:30 AM EDT Office Visit [facility] [address] [place] [address] [phone] Joanne Grimaldo MD [address] [place] [phone] documented as of this encounter Visit Diagnoses Not on filedocumented in this encounter Care Teams Development And Housing Director Relationship Specialty Start Date End Date Malina Mckinney MD [address] [place] [phone] PCP - General Family Medicine 05/05/18 documented as of this encounter
--- OUTSIDE RECORDS SUMMARY | 2025-01-16 10:15 | XMS_ITS | Clinical Summary ---
Author Organization [employer] Address [address] [place] [address] 7t [place] [address] Care Team Providers Care Permastone Installer Name Role Phone Malina Mckinney MD Primary Care Provider + Allergies No known active allergies Medications warfarin (Coumadin) 3 MG tablet See Instructions, 1 tablet By Mouth Once tonight then as directed based on daily inr level, # 30 tablet, 0 Refills, Soft Stop, 06/16/21 8:04:00 EDT, Tablet, [facility], Partial fill upon patient [...] -He is on cumadin followed by the [facility]. INR goal is 2.5-3.5 -Recommend amoxicillin [...] -He is on cumadin followed by the [facility]. INR goal is 2.5-3.5 -Recommend amoxicillin [...] Encounters Date Type Department Care Team Description 01/16/2025 Patient Outreach [facility] [address] [place] [phone] Malina Mckinney MD Transition Of Care (Tcm) (HDF- scheduled and SDOH screening negative and Tobacco screening negative) 01/16/2025 Orders Only GENERIC EXTERNAL DATA DEPARTMENT Provider, Generic External Data 01/16/[address] [address] Malina Mckinney MD Hospital Follow-up 01/11/2025 Orders Only GENERIC EXTERNAL DATA DEPARTMENT Provider, Generic External Data 12/21/2024 Telephone [facility] [address] [place] [address] Malina Mckinney MD February11/22/2024 Orders Only GENERIC [...] 08/30/2024 9:50 AM EDT Plan of Treatment Upcoming Encounters Date Type Department Care Team (Late st Contact Info) Description 01/30/2025 9:30 AM EDT Office Visit [facility] [address] [place] [address] Joanne Grimaldo MD [address] [place] [address] Health Maintenance Due Date Last Done Comments [...] Comments PROTHROMBIN TIME WHOLE BLD POC Routine 01/16/2025 9:29 AM EST ~PT, ~INR - ANTI COAG CLINIC Routine 01/16/2025 9:29 AM EST PROTHROMBIN TIME WHOLE BLD POC Routine 01/11/2025 3:38 PM EST ~PT, ~INR - ANTI COAG CLINIC Routine 01/11/2025 3:38 PM EST PROTHROMBIN TIME WHOLE BLD POC Routine 11/22/2024 [...] * (ABNORMAL) PROTHROMBIN TIME WHOLE BLD POC (01/16/2025 9:29 AM EST) Only the most recent of4 resultswithin the time period is included. Protime 41.1(H) 11.1 - 13.5 sec [facility] 01/16/2025 9:29 AM EST 01/16/2025 9:32 AM EST Generic External Data Provider LAB BLOOD ORDERAB LES Final Result Performing Organization Address City/[facility]/ZIP Co de Phone Number [facility] [address] [place] [address] [phone] * (ABNORMAL) ~PT, ~INR - ANTI COAG CLINIC (01/16/2025 9:29 AM EST) Only the most recent of4 resultswithin the time period is included. Prothrombin Time INR 3.4(H) 0.9 - 1.1 [facility] Comment:METER #: [id number] TERNATIONAL NORMALIZED RATIO (INR) REFERENCE RANGES Reference RangeFor patients not on anticoagulant therapy: 0.9 - 1.1INR ranges for oral anticoagulanttherapy:For prevention and treatment of venous thrombosis and pulmonary embolism: 2.0 - 3.0For acute myocardial infarction with aspirin therapy: 2.0 - 3.0For acute myocardial infarction without aspirin therapy: 3.0 - 4.0For patients with mechanical prosthetic heart valves: 2.5 - 3.5 01/16/2025 9:29 AM EST 01/16/2025 9:32 AM EST [employer] External Data Provider LAB BLOOD ORDERAB LES Final Result Performing Organization Address [facility]/ZIP Co de Phone Number [facility] [address] [place] [address] [phone] * (ABNORMAL) Lipid Panel with Reflex to Direct LDL (08/18/2023 9:08 AM EDT) Triglycerides 111 <150 mg/dL [facility] Comment:Desirable Triglyceri de: less than 150 mg/dLBorderline High Triglyceride 150-199 mg/dLHigh Triglyceride: 200-499 mg/dLVery High Triglyceride: greater than or equal to 5OO mg/dL Cholesterol 212(H) <200 mg/dL [facility] Comment:Desirable Cholestero l: less than 200 mg/dLBorderline High Cholesterol: 200-239 mg/dLHigh Cholesterol: greater than 239 mg/dL LDL Cholesterol Calculated 151(H) <100 mg/dL [facility] Comment:Desirable LDL: less than 100 mg/dLNear Optimal/Above Optimal LDL: 110- 129 mg/dLBorderline High LDL: 130-159 mg/dLHigh LDL: 160-189 mg/dLVery High LDL: greater than or equal to 190 mg/dL HDL Cholesterol 39(L) >40 mg/dL [facility] Comment:Desirable HDL: great er than 40 mg/dL Note: This HDL assay may give artificially low results in patients with liver disease. Blood 08/18/2023 9:08 AM EDT 08/18/2023 11:03 AM EDT us Malina Mckinney MD LAB BLOOD ORDERABLES Fin al Result [facility] [address] [place] [phone] from Last 3 Months or Most Recently Relevant to Health Maintenance Insurance [facility] PPO [facility] Care Teams Permastone Installer Relationship Specialty Start Date End Date Malina Mckinney MD [address] [place] [phone] PCP - General Family Medicine 05/05/18
--- OUTSIDE RECORDS SUMMARY | 2025-01-16 10:15 | XMS_ITS | Encounter Summary ---
Author Organization [employer] Address [address] [facility] 7t [place] [address] Care Team Providers Care Assorter Name Role Phone Malina Mckinney MD Primary Care Provider + Encounter Details Date Type Department Care Team ([facility] st Contact Info) Description 01/11/2025 Orders Only GENERIC EXTERNAL DATA DEPARTMENT Provider, Generic External Data Social History Tobacco Use Types Packs/Day Years Used Date Smoking Tobacco: Never Smokeless Tobacco: Never Alcohol Use Standard Drinks/Week Comments Not Currently 0 (1 standard drink = 0.6 oz pur e alcohol) [facility] Housing Stability Answer Date Recorded What is your housing situation today? I have yaeljosefina overton 08/30/[address] you [...] as of this encounter Plan of Treatment Upcoming Encounters Date Type Department Care Team (Late st Contact Info) Description 01/30/2025 9:30 AM EDT Office Visit [facility] [address] [place], [place] [phone] Joanne Grimaldo MD [address] [place], [place] [phone] documented as of this encounter Procedures Procedure Name Priority Date/Time Associated Diagnosis Comments PROTHROMBIN TIME WHOLE BLD POC Routine 01/11/2025 3:38 PM EST ~PT, ~INR - ANTI COAG CLINIC Routine 01/11/2025 3:38 PM EST documented in this encounter Results * (ABNORMAL) PROTHROMBIN TIME WHOLE BLD POC (01/11/2025 3:38 PM EST) Protime 28.9(H) 11.1 - 13.5 sec [facility] 01/11/2025 3:38 PM EST 01/11/2025 3:40 PM EST us Generic External Data Provider LAB BLOOD ORDERAB LES Final Result [facility] [address] [place] [phone] * (ABNORMAL) ~PT, ~INR - ANTI COAG CLINIC (01/11/2025 3:38 PM EST) Prothrombin Time INR 2.4(H) 0.9 - 1.1 [facility] Comment:METER #: [id number] TERNATIONAL NORMALIZED RATIO (INR) REFERENCE RANGES Reference RangeFor patients not on anticoagulant therapy: 0.9 - 1.1INR ranges for oral anticoagulanttherapy:For prevention and treatment of venous thrombosis and pulmonary embolism: 2.0 - 3.0For acute myocardial infarction with aspirin therapy: 2.0 - 3.0For acute myocardial infarction without aspirin therapy: 3.0 - 4.0For patients with mechanical prosthetic heart valves: 2.5 - 3.5 01/11/2025 3:38 PM EST 01/11/2025 3:40 PM EST us Generic External Data Provider LAB BLOOD ORDERAB LES Final Result Performing Organization Address City/State/[facility] Co de Phone Number [facility] [address] [place] [phone] documented in this encounter Visit Diagnoses Not on filedocumented in this encounter Care Teams Assorter Relationship Specialty Start Date End Date Malina Mckinney MD [address] [place] [phone] PCP - General Family Medicine 05/05/18 documented as of this encounter
--- OUTSIDE RECORDS SUMMARY | 2025-01-16 10:15 | XMS_ITS | Encounter Summary ---
Author Organization [employer] Address [address] [facility] 7t [place] [address] Care Team Providers Care Rotary Lithographic Press Operator Name Role Phone Malina Mckinney MD Primary Care Provider + Reason for Visit * Reason Onset Date Comments Hospital Follow-up 01/16/2025 Encounter Details Date Type Department Care Team ([facility] st Contact Info) Description 01/16/2025 Telephone [facility] MEDICINE [address] [place], [place] [phone] Malina Mckinney MD [address] [place], [place] [phone] Hospital Follow-up Social History Tobacco Use Types Packs/Day Years [...] encounter Miscellaneous Notes * Telephone Encounter - Aidee Corea - 01/16/2025 9:24 AM EST Tc from pt requesting a HDF appt. Hospital: [facility] Date of admission: 01/07 Discharge date: 01/10 Diagnosed: right ankle pain, right wrist pain *Send message to [place] Clinical Care Coordinators [phone] swiss documented in this encounter Plan of Treatment Upcoming Encounters Date Type Department Care Team (Late st Contact Info) Description 01/30/2025 9:30 AM EDT Office Visit [facility] MEDICINE [address] [place] [address] Joanne Grimaldo MD [address] [place] [address] documented as of this encounter Visit Diagnoses Not on filedocumented in this encounter Care Teams Rotary Lithographic Press Operator Relationship Specialty Start Date End Date Malina Mckinney MD [address] [place] [address] PCP - General Family Medicine 05/05/18 documented as of this encounter
--- OUTSIDE RECORDS SUMMARY | 2025-01-16 10:15 | XMS_ITS | Encounter Summary ---
Author Organization [employer] Address [address] [facility] 7t [place] [address] Care Team Providers Care Sheet Mill Supervisor Name Role Phone Malina Mckinney MD Primary Care Provider + Encounter Details Date Type Department Care Team (Late st Contact Info) Description 12/19/2023 Abstract [facility] ADULT DENTAL [address] [place], [place] [phone] Thiago, Dalia [address] [place] [address] Social History Tobacco Use Types Packs/Day Years [...] Office Visit [facility] MEDICINE [address] [place], [place] [phone] Joanne Grimaldo MD [address] [place] [address] documented as of this encounter Visit Diagnoses Not on filedocumented in this encounter Care Teams Sheet Mill Supervisor Relationship Specialty Start Date End Date Malina Mckinney MD [address] [place] [phone] PCP - General Family Medicine 05/05/18 documented as of this encounter
--- OUTSIDE RECORDS SUMMARY | 2025-01-16 10:15 | XMS_ITS | Encounter Summary ---
Author Organization [employer] Address [address] [place] [address] 7 [place] [address] Care Team Providers Care Philosophy Lecturer Name Role Phone Malina Mckinney MD Primary Care Provider + Reason for Referral * Imaging (Urgent) - Closed Specialty Diagnoses / Procedures Referred By Contac t Referred To Contact Cardiology Diagnoses Edema of right lower extremity Procedures Vascular US lower extremity venous duplex right Brett Kwon MD [address] [place] [address] Phone: tel: fax: [facility] Referral ID Status Reason Start Date Expiration Date V isits Requested Visits Authorized [id number] Closed Perform Procedure 05/01/2024 05/01/2025 1 1 Encounter Details Date Type Department Care Team (Late st Contact Info) Description 05/01/2024 Orders Only [facility] MED & PEDS [address] [place] [address] Brett Kwon MD [address] [place] [address] Edema of right lower extremity (Primary Dx) [...] Description 01/30/2025 9:30 AM EDT Office Visit [facility] MEDICINE [address] [place] [address] Joanne Grimaldo MD [address] [place] [address] documented as of this encounter Procedures Procedure Name Priority Date/Time Associated Diagnosis Comments US VENOUS DUPLEX LE RT Routine 05/02/2024 11:04 AM EDT documented in this encounter Results * US VENOUS DUPLEX LE RT (05/02/2024 11:04 AM EDT) Anatomical Region Laterality Modality Abdomen Ultrasound 05/02/2024 11:0 4 AM EDT Narrative 05/02/2024 2:06 PM EDT ? [facility] ?[address] ?[place] [address] ? Ultrasound Report ? Signed ? Patient: Keisha,Darwin ?MR#: [id number] ?? [id number] ? : 1980 ?Acct:[id number] ? Age/Sex: 43 / M ?ADM Date: 05/02/24 ? Loc: HO.US ? Attending Dr: Brett Kwon MD ? Ordering Physician: Brett Kwon MD ?? Date of Service: 05/02/24 ?? Procedure(s): US venous duplex LE RT ?? Accession Number(s): [id number] ? cc: Brett Kwon MD; Malina Mckinney [...] 1403 ? DD/ 1104 ? TD/TT: ? Mapping Supervisor: SS ? Procedure Note Peewee Malcolm - 05/02/2024 [phone] [place] [address] Ultrasound Report Signed Patient: KeishaJamie fitzgerald RMR#: [id number] : 1980Acct:[id number] Age/Sex: 43 / MADM Date: 05/02/24 Loc: HO.US Attending Dr: Brett Kwon MD Ordering Physician: Brett Kwon MD Date of Service: 05/02/24 Procedure(s): US venous duplex LE RT Accession Number(s): [id number] cc: Brett Kwon MD; Malina Mckinney MD [...] in OV> 05/02/24 1403 DD/ 1104 TD/TT: Mapping Supervisor: SS us Brett Kwon MD IMG US PROCEDURES Final Res ult documented in this encounter Visit Diagnoses Diagnosis Edema of right lower extremity- Primary documented in this encounter Care Teams Philosophy Lecturer Relationship Specialty Start Date End Date Malina Mckinney MD [address] [place] [phone] PCP - General Family Medicine 05/05/18 documented as of this encounter
--- OUTSIDE RECORDS SUMMARY | 2025-01-16 10:15 | XMS_ITS | Encounter Summary ---
Author Organization [employer] Address [address] [facility] 7t [place] [address] Care Team Providers Care Railway Switch Operator Name Role Phone Malina Mckinney MD Primary Care Provider + Encounter Details Date Type Department Care Team ([facility] st Contact Info) Description 01/16/2025 Orders Only GENERIC EXTERNAL DATA DEPARTMENT [...] 9:30 AM EDT Office Visit [facility] MEDICINE [address] [place] [address] Joanne Grimaldo MD 230 [place], [place] [phone] documented as of this encounter Procedures Procedure Name Priority Date/Time Associated Diagnosis Comments PROTHROMBIN TIME WHOLE BLD POC Routine 01/16/2025 9:29 AM EST ~PT, ~INR - ANTI COAG CLINIC Routine 01/16/2025 9:29 AM EST documented in this encounter Results * (ABNORMAL) PROTHROMBIN TIME WHOLE BLD POC (01/16/2025 9:29 AM EST) Protime 41.1(H) 11.1 - 13.5 sec [facility] 01/16/2025 9:29 AM EST 01/16/2025 9:32 AM EST us Generic External Data Provider LAB BLOOD ORDERAB LES Final Result [facility] [address] [place] [address] [phone] * (ABNORMAL) ~PT, ~INR - ANTI COAG CLINIC (01/16/2025 9:29 AM EST) Prothrombin Time INR 3.4(H) 0.9 - 1.1 [facility] Comment:METER #: [id number] TERNATIONAL NORMALIZED RATIO (INR) REFERENCE RANGES Reference [...] 9:29 AM EST 01/16/2025 9:32 AM EST us Generic External Data Provider LAB BLOOD ORDERAB LES Final Result Performing Organization Address City/State/[facility] Co de Phone Number [facility] [address] [place] [phone] documented in this encounter Visit Diagnoses Not on filedocumented in this encounter Care Teams Railway Switch Operator Relationship Specialty Start Date End Date Malina Mckinney MD [address] [place] [phone] PCP - General Family Medicine 05/05/18 documented as of this encounter
--- OUTSIDE RECORDS SUMMARY | 2025-01-16 10:15 | XMS_ITS | Encounter Summary ---
Author Organization [employer] Address [address] [facility] 7t [place] [address] Care Team Providers Care Mud Jack Nozzleman Name Role Phone Malina Mckinney MD Primary Care Provider + Reason for Visit * Reason Comments Transition Of Care (Tcm) HDF- scheduled and SDOH screening negative and Tobacco screening negative Encounter Details Date Type Department Care Team ([facility] st Contact Info) Description 01/16/2025 Patient Outreach [facility] MEDICINE [address] [place], [place] [phone] Malina Mckinney MD [address] [place], [place] [phone] Transition Of Care (Tcm) (HDF- scheduled and SDOH screening negative and Tobacco screening negative) Social History Tobacco Use Types Packs/Day Years [...] as of this encounter Miscellaneous Notes * Significant Event - Kim Rowley - 01/16/2025 9:42 AM EST 01/16/25 0936 Hospital Discharges and Admission for [facility] Type of Visit Hospital Admission Date of Admission/Visit 01/07/25 Date of Discharge 01/10/25 Facility [facility] Diagnosis General medical Aortic valve replaced, Polyarticular arthritis, Hypertension Disposition Discharged Home Follow-Up Actions Follow-Up Needed Provider appointment Follow-Up Outcome Spoke to Patient;Booked Appointment Initial Contact Date 01/16/25 YANETH Dalal placed outbound call to patient for HDF outreach. Patient's name and were confirmed. Patient educated on the importance of follow up with provider following inpatient admission. Patient offered an HDF appt. Patient is agreeable to an appointment and has been scheduled for 01/30/2025t 9:30am with (Patient requested it a Tuesday). Insurance verified prior to scheduling. Patient advised to bring to appointment a photo id and insurance card. Patient also notified that a health center pharmacist will be reaching out to them via telephone prior to their scheduled appointment in order to review their medications in preparation for their appointment. Patient providedwith education on contacting the Health Center with any questions or concerns prior to the scheduled appointment. Patient educated on extended clinic hours on Mondays and Wednesdays, and Walk-In Urgent Care Located in [facility]. Patient provided with after-hours line for [facility], , whichoffer night time triage service and option to transfer to artifacts conservator provider if needed. CC scanned discharge summary into patient's chart. Biggest concern for appointment at this time is requesting a welder/fabricator referral. Appropriate screenings completed in anticipation of appointment. documented in this encounter Plan of Treatment Upcoming Encounters Date Type Department Care Team (Late st Contact Info) Description 01/30/2025 9:30 AM EDT Office Visit [facility] MEDICINE [address] [place], [place] [phone] Joanne Grimaldo MD [address] [place], [place] [phone] documented as of this encounter Visit Diagnoses Not on filedocumented in this encounter Care Teams Mud Jack Nozzleman Relationship Specialty Start Date End Date Malina Mckinney MD [address] [place], [place] [phone] PCP - General Family Medicine 05/05/18 documented as of this encounter
--- OUTSIDE RECORDS SUMMARY | 2025-01-16 10:15 | XMS_ITS | Encounter Summary ---
Author Organization [employer] Address [address] [facility] 7t [place] [address] Care Team Providers Care Draw String Knotter Name Role Phone Malina Mckinney MD Primary Care Provider + Reason for Visit * Reason Onset Date Comments INR results 12/07/2023 Encounter Details Date Type Department Care Team ([facility] st Contact Info) Description 12/07/2023 Telephone [facility] ADULT DENTAL [address] [place] [address] America Chirinos, DDS [address] [place] [address] INR results Social History Tobacco Use Types [...] - 12/07/2023 3:53 PM EST Ramya from [facility] is faxing over INR results for patient coming intomorrow 12/08/2023 documented in this encounter Plan of Treatment Upcoming Encounters Date Type Department Care Team (Late st Contact Info) Description 01/30/2025 9:30 AM EDT Office Visit [facility] MEDICINE [address] [place] [address] Joanne Grimaldo MD [address] [place] [address] documented as of this encounter Visit Diagnoses Not on filedocumented in this encounter Care Teams Draw String Knotter Relationship Specialty Start Date End Date Malina Mckinney MD [address] [place] [address] PCP - General Family Medicine 05/05/18 documented as of this encounter
== END 2025-01-16 11:34 | disposition home or self-care (01) ==
LOC: HO.ACS 09:14
PROVIDERS: PCP Internal Medicine; Visit Provider Internal Medicine
DX: Z79.01 Long term (current) use of anticoagulants (principal)

== ENCOUNTER → 2025-01-16 09:14 | Outpatient (BNVA) | payer BC, SELFPAY | PROVIDERS: PCP Internal Medicine; Visit Provider Internal Medicine | DX: Z95.2 Presence of prosthetic heart valve (principal); Z79.01 Long term (current) use of anticoagulants; Z51.81 Encounter for therapeutic drug level monitoring | CPT/HCPCS: 85610; 99211 ==

== ENCOUNTER 2025-01-23 09:17 | Outpatient (AMB) | payer BC, SELFPAY ==
[2025-01-23 09:31] LABS: Prothrombin Time Whole Bld POC 37.4 sec (11.1-13.5); ~PT, ~INR - Anti Coag Clinic 3.1 (0.9-1.1)
--- NOTE | 2025-01-23 09:35 | MHC.OFFVISCO ---
Intake Intake Visit Reasons: Anticoagulation Allergies No Known Allergies Allergy (Verified 01/23/25 09:25) Medication List - Last Reconciled 01/23/25 by Aislinn Lopez RN chlorhexidine gluconate 0.12% PO metoprolol tartrate 50 mg PO BID warfarin 4 mg See Protocol PO DAILY Nursing Note PT.HAS 5 DAYS REMAINING ON AMOX.(THROAT INF.) SOME PAIN PERSISTS (R) HAND, AND CONTINUES TO TAKE THE COLCHICINE WITH EFFECTIVE4 RELIEF OF SX. PT.HAS RHEUMATOLOGY APPT.ON 03/06. CONTINUE 36MGM WARFARIN WEEKLY AND FOLLOW-UP IN 2 WEEKS GOOD UNDERSTANDING OF DOSING INSTR. Anti-Coag Initial Assessment Social Hx Patient Tobacco Use Status: Never used Tobacco alcohol intake: current Alcohol intake frequency: a few times a week Cardiovascular Hx: Other Lung Disease HX: Other GI Hx: Other Cancer HX: No Psych. Illness/Depression: No Coding Level of Care Code Est Patient Level 1 Diagnoses Current use of anticoagulant therapy Z79.01 Assessment & Plan Assessment & Plan (1) Current use of anticoagulant therapy: Code(s): Z79.01 - keno terminal operator (current) use of anticoagulants Category: Medical
--- OUTSIDE RECORDS SUMMARY | 2025-01-23 10:20 | XMS_ITS | Encounter Summary ---
Author Organization [employer] Address [address] [facility] 7t [place] [address] Care Team Providers Care Instrumentation Fitter Name Role Phone Malina Mckinney MD Primary Care Provider + Encounter Details Date Type Department Care Team ([facility] st Contact Info) Description 01/23/2025 Orders Only GENERIC EXTERNAL DATA DEPARTMENT Provider, [...] Access Answer Date Recorded Internet Access Q1 Yes 01/16/2025 Internet Access Q2 I do not want or need it 12/23 Sex and Gender Information Value Date Recorded [...] Description 01/30/2025 9:30 AM EDT Office Visit [facility] MEDICINE [address] [place], [place] [phone] Joanne Grimaldo MD [address] [place], [place] [phone] documented as of this encounter Procedures Procedure Name Priority Date/Time Associated Diagnosis Comments PROTHROMBIN TIME WHOLE BLD POC Routine 01/23/2025 9:30 AM EST ~PT, ~INR - ANTI COAG CLINIC Routine 01/23/2025 9:30 AM EST documented in this encounter Results * (ABNORMAL) PROTHROMBIN TIME WHOLE BLD POC (01/23/2025 9:30 AM EST) Protime 37.4(H) 11.1 - 13.5 sec [facility] 01/23/2025 9:30 AM EST 01/23/2025 9:31 AM EST us Generic External Data Provider LAB BLOOD ORDERAB LES Final Result [facility] [address] [place] [address] [phone] * (ABNORMAL) ~PT, ~INR - ANTI COAG CLINIC (01/23/2025 9:30 AM EST) Prothrombin Time INR 3.1(H) 0.9 - 1.1 [facility] Comment:METER #: [id number] TERNATIONAL NORMALIZED RATIO (INR) REFERENCE RANGES Reference RangeFor patients not on anticoagulant therapy: 0.9 - 1.1INR ranges for oral anticoagulanttherapy:For prevention and treatment of venous thrombosis and pulmonary embolism: 2.0 - 3.0For acute myocardial infarction with aspirin therapy: 2.0 - 3.0For acute myocardial infarction without aspirin therapy: 3.0 - 4.0For patients with mechanical prosthetic heart valves: 2.5 - 3.5 01/23/2025 9:30 AM EST 01/23/2025 9:31 AM EST us Generic External Data Provider LAB BLOOD ORDERAB LES Final Result Performing Organization Address City/State/[facility] Co de Phone Number [facility] [address] [place] [phone] documented in this encounter Visit Diagnoses Not on filedocumented in this encounter Care Teams Instrumentation Fitter Relationship Specialty Start Date End Date Malina Mckinney MD [address] [place] [phone] PCP - General Family Medicine 05/05/18 documented as of this encounter
--- OUTSIDE RECORDS SUMMARY | 2025-01-23 10:20 | XMS_ITS | Encounter Summary ---
Author Organization [employer] Address [address] [facility] 7t [place] [address] Care Team Providers Care Rn Documentation Specialist Name Role Phone Malina Mckinney MD Primary Care Provider + Reason for Referral * Consultation (Routine) - Authorized Specialty Diagnoses / Procedures Referred By Contac t Referred To Contact Rheumatology Diagnoses Polyarthritis, inflammatory (CMS/HCC) Malina Mckinney MD [address] [place] [address] Phone: tel: fax: [facility] [address] [facility] [address] [place], [place] Phone: tel: fax: Referral ID Status Reason Start Date Expiration Date Visits Requested Visits Authorized [id number] Authorized Specialty Services Required 01/16/2025 01/16/2026 1 1 Encounter Details Date Type Department Care Team (Late st Contact Info) Description 01/16/2025 Orders Only [facility] MEDICINE [address] [place], [place] [phone] Malina Mckinney MD [address] [place] [address] Polyarthritis, inflammatory (CMS/HCC) (Primary Dx) Social History Tobacco Use Types [...] AM EDT documented as of this encounter Progress Notes * Malina Mckinney MD - 01/16/2025 1:16 PM EST Referral to rheumatology sent. Please call patient and tell him to fu with us in 2w if they haven'tcalled him with appt. documented in this encounter Plan of Treatment Upcoming Encounters Date Type Department Care Team (Late st Contact Info) Description 01/30/2025 9:30 AM EDT Office Visit [facility] MEDICINE [address] [place] [address] Joanne Grimaldo MD [address] [place] [address] Scheduled Referrals Name Type Priority Associated Diagnoses Orde r Schedule Referral to Rheumatology Outpatient Referral Routine Polyarthritis, inflammatory (CMS/HCC) Expected: 01/16/2025 (Approximate), Expires: 01/16/2026 documented as of this encounter Visit Diagnoses Diagnosis Polyarthritis, inflammatory (CMS/HCC)- Primary Unspecified inflammatory polyarthropathy documented in this encounter Care Teams Rn Documentation Specialist Relationship Specialty Start Date End Date Malina Mckinney MD [address] [place] [phone] PCP - General Family Medicine 05/05/18 documented as of this encounter
--- OUTSIDE RECORDS SUMMARY | 2025-01-23 10:20 | XMS_ITS | Encounter Summary ---
Author Organization [employer] Address [address] [facility] 7t [place] [address] Care Team Providers Care Nurses Medical Assistants Phlebotomists Name Role Phone Malina Mckinney MD Primary Care Provider + Reason for Visit * Reason Onset Date Comments Referral 01/17/2025 Encounter Details Date Type Department Care Team ([facility] st Contact Info) Description 01/17/2025 Telephone [facility] MEDICINE [address] [place], [place] [phone] Malina Mckinney MD [address] [place] [address] Referral Social History Tobacco Use Types Packs/Day Years [...] encounter Miscellaneous Notes * Telephone Encounter - Skylar Luis RN - 01/18/2025 2:30 PM EST Telephone call to pt to advise that rheumatology referral was processed today and it was made to [facility], not [facility] Rheumatology as previously told. Explained to pt that he will get letter in the mail next week with referral information and to read the letter to know whether he needs to call to schedule appt or if that office will call him. No letter yet on file to tell him for sure since just processed today. Advised him to call back in 2 weeks if hasn't heard from office. Pt verbalized understanding, no further questions. * Telephone Encounter - Jeremiah Mccarthy - 01/17/2025 4:56 PM EST TC from pt states contacted Rheumatology office number provider per below message . [facility] Rheumatology are not excepting new patients at this time . Pt looking to get referred else where. * Telephone Encounter - Yolanda Garcia [place] - 01/17/2025 2:35 PM EST Tc to pt to provide rheumatology referral info. Pt has been provided with info, and asked to call within 2 weeks if pt hasn't been contacted. documented in this encounter Plan of Treatment Upcoming Encounters Date Type Department Care Team (Late st Contact Info) Description 01/30/2025 9:30 AM EDT Office Visit [facility] MEDICINE [address] [place], [place] [phone] Joanne Grimaldo MD [address] [place], [place] [phone] documented as of this encounter Visit Diagnoses Not on filedocumented in this encounter Care Teams Nurses Medical Assistants Phlebotomists Relationship Specialty Start Date End Date Malina Mckinney MD [address] [place] [phone] PCP - General Family Medicine 05/05/18 documented as of this encounter
--- OUTSIDE RECORDS SUMMARY | 2025-01-23 10:20 | XMS_ITS | Clinical Summary ---
Author Organization [employer] Address [address] [place] [address] 7t [place] [address] Care Team Providers Care Medicare Biller Name Role Phone Malina Mckinney MD Primary Care Provider + Allergies No known active allergies Medications warfarin (Coumadin) 3 MG tablet See Instructions, 1 tablet By Mouth Once tonight then as directed based on daily inr level, # 30 tablet, 0 Refills, Soft Stop, 06/16/21 8:04:00 EDT, Tablet, [facility], Partial fill upon patient request [...] -He is on cumadin followed by the [facility]. INR goal is 2.5-3.5 -Recommend [...] -He is on cumadin followed by the [facility]. INR goal is 2.5-3.5 -Recommend [...] Encounters Date Type Department Care Team Description 01/23/2025 Orders Only GENERIC EXTERNAL DATA DEPARTMENT Provider, Generic External Data 01/18/[address] [phone] Malina Mckinney MD Nurse Triage 01/17/[address] [phone] Malina Mckinney MD Referral 01/16/2025 Orders Only [address] [phone] Malina Mckinney MD Polyarthritis, inflammatory (CMS/HCC) (Primary Dx) 01/16/2025 Patient Outreach [address] [phone] Malina Mckinney MD Transition Of Care (Tcm) (HDF- scheduled and SDOH screening negative and Tobacco screening negative) 01/16/2025 Orders Only GENERIC EXTERNAL DATA DEPARTMENT Provider, Generic External Data 01/16/[address] [address] Malina Mckinney MD Hospital Follow-up 01/11/2025 Orders Only GENERIC EXTERNAL DATA DEPARTMENT Provider, Generic External Data 12/21/[address] [phone] Malina Mckinney MD February recall 11/22/2024 Orders Only GENERIC EXTERNAL DATA DEPARTMENT Provider, [...] Description 01/30/2025 9:30 AM EDT Office Visit [facility] [address] [place] [address] Joanne Grimaldo MD [address] [place], [place] [phone] Health Maintenance Due Date Last Done Comments [...] 09/28/2023 Depression Screening 05/29/2025 05/29/2024, 05/29/20 24 Tobacco Screening 08/30/2025 08/30/2024 SDOH Screening 01/16/2026 01/16/2025 Dental X-Ray: Full Mouth 09/29/2026 09/28/2023 Lipid [...] [facility] Routine 01/23/2025 9:30 AM EST PROTHROMBIN TIME WHOLE BLD POC Routine 01/16/2025 [...] WHOLE BLD POC (01/23/2025 9:30 AM EST) Only the most recent of5 resultswithin the time period is included. Protime 37.4(H) 11.1 - 13.5 sec [facility] 01/23/2025 9:30 AM EST 01/23/2025 9:31 AM EST us Generic External Data Provider LAB BLOOD ORDERAB LES Final Result Performing Organization Address City/State/[facility] Co de Phone Number [facility] [address] [place] [address] [phone] * (ABNORMAL) ~PT, ~INR - ANTI COAG CLINIC (01/23/2025 9:30 AM EST) Only the most recent of5 resultswithin the time period is included. Prothrombin Time INR 3.1(H) 0.9 - 1.1 [facility] Comment:METER #: [id number] TERNATIONAL NORMALIZED RATIO (INR) REFERENCE RANGES Reference [...] ORDERAB LES Final Result Performing Organization Address [facility] de Phone Number [facility] [address] [place] [phone] * (ABNORMAL) Lipid Panel with Reflex to Direct LDL (08/18/2023 9:08 AM EDT) Triglycerides 111 <150 mg/dL [facility] Comment:Desirable Triglyceri de: less than 150 mg/dLBorderline High Triglyceride 150-199 mg/dLHigh Triglyceride: 200-499 mg/dLVery High Triglyceride: greater than or equal to 5OO mg/dL Cholesterol 212(H) <200 mg/dL [facility] Comment:Desirable Cholestero l: less than 200 mg/dLBorderline High Cholesterol: 200-239 mg/dLHigh Cholesterol: greater than 239 mg/dL LDL Cholesterol Calculated 151(H) <100 mg/dL [facility] Comment:Desirable LDL: less than 100 mg/dLNear Optimal/Above Optimal LDL: 110- 129 mg/dLBorderline High LDL: 130-159 mg/dLHigh LDL: 160-189 mg/dLVery High LDL: greater than or equal to 190 mg/dL HDL Cholesterol 39(L) >40 mg/dL [facility] Comment:Desirable HDL: great er than 40 mg/dL Note: This HDL assay may give artificially low results in patients with liver disease. Blood 08/18/2023 9:08 AM EDT 08/18/2023 11:03 AM EDT us Malina Mckinney MD LAB BLOOD ORDERABLES Fin al Result [facility] [address] [place] [phone] from Last 3 Months or Most Recently Relevant to Health Maintenance Insurance [facility] PPO [facility] Care Teams Medicare Biller Relationship Specialty Start Date End Date Malina Mckinney MD [address] [place] [address] PCP - General Family Medicine 05/05/18
--- OUTSIDE RECORDS SUMMARY | 2025-01-23 10:20 | XMS_ITS | Encounter Summary ---
Author Organization [employer] Address [address] [facility] 7t [place] [address] Care Team Providers Care Account Services Coordinator Name Role Phone Malina Mckinney MD Primary Care Provider + Reason for Visit * Reason Onset Date Comments Nurse Triage 01/18/2025 Encounter Details Date Type Department Care Team ([facility] st Contact Info) Description 01/18/2025 Telephone [facility] [address] [place], [place] [phone] Malina Mckinney MD [address] [place] [address] Nurse Triage Social History Tobacco Use Types Packs/Day Years [...] t he electric, gas, oil or water Groupiter threatened to shut off services in your [...] encounter Miscellaneous Notes * Telephone Encounter - Elyssa Paulino RN - 01/18/2025 12:51 PM EST No aerial photograph interpreter needed as this writer editor speaks [place]. Call returned to Jamie Valdes to triage below. Reports having fever and body aches x 1 day. No cough, congestion, RIDER or ST. Denies any sick contacts. Pt has not home tested for COVID-19. Pt had recent admission to [facility] 01/07-01/10 for General medical Aortic valve replaced, Polyarticular arthritis, Hypertension. Pt was discharged with 5 days of abx . Patient completed and now onset of fever and body aches. Pt advised that can seek WIC today , states at work until 7pm. Advised to then return to either with late hours or ER for further evaluation as testing will need to be done to rule out viral vs bacterial cause of sx. Pt verbalized understanding. Given contact for [facility] in [place] as resource. Protocol Used: Muscle Aches and Body Pain (Adult) Protocol-Based Disposition: See in Office or Video Visit within 3 Days Video visit offer not recorded Positive Triage Question: * Moderate pain (e.g., interferes with normal activities) and present > 3 days * All higher-acuity triage questions were negative Care Advice Discussed: * Reasons To Call Back - You become worse * Telephone Encounter - David Shukla - 01/18/2025 12:05 PM EST Symptoms: Fever, Body Aches Outcome: Schedule an appointment to be seen within 24 hours Reason: Caller denied all higher acuity questions The caller accepted this outcome. Contact pt at [phone] documented in this encounter Plan of Treatment Upcoming Encounters Date Type Department Care Team (Late st Contact Info) Description 01/30/2025 9:30 AM EDT Office Visit [facility] [address] [place], [place] [phone] Joanne Grimaldo MD [address] [place] [address] documented as of this encounter Visit Diagnoses Not on filedocumented in this encounter Care Teams Account Services Coordinator Relationship Specialty Start Date End Date Malina Mckinney MD [address] [place] [address] [phone] PCP - General Family Medicine 05/05/18 documented as of this encounter
--- OUTSIDE RECORDS SUMMARY | 2025-01-23 10:21 | XMS_ITS | Encounter Summary ---
Author Organization [employer] Address [address] [facility] 7t [place] [address] Care Team Providers Care Vice President Integrated Name Role Phone Malina Mckinney MD Primary Care Provider + Encounter Details Date Type Department Care Team ([facility] st Contact Info) Description 01/11/2025 Orders Only [...] Description 01/30/2025 9:30 AM EDT Office Visit [facility] [address] [place], [place] [phone] Joanne Grimaldo MD [address] [place], [place] [phone] documented as of this encounter Procedures Procedure Name Priority Date/Time Associated Diagnosis Comments PROTHROMBIN TIME WHOLE BLD POC Routine 01/11/2025 3:38 PM EST ~PT, ~INR - ANTI COAG CLINIC Routine 01/11/2025 3:38 PM EST documented in this encounter Results * (ABNORMAL) PROTHROMBIN TIME WHOLE BLD POC (01/11/2025 3:38 PM EST) Protime 28.9(H) 11.1 - 13.5 sec [facility] 01/11/2025 3:38 PM EST 01/11/2025 3:40 PM EST us Generic External Data Provider LAB BLOOD ORDERAB LES Final Result [facility] [address] [place] [phone] * (ABNORMAL) ~PT, ~INR - ANTI COAG CLINIC (01/11/2025 3:38 PM EST) Prothrombin Time INR 2.4(H) 0.9 - 1.1 [facility] Comment:METER #: [id number] TERNATIONAL NORMALIZED RATIO (INR) REFERENCE RANGES Reference [...] ORDERAB LES Final Result Performing Organization Address City/State/[facility] Co de Phone Number [facility] [address] [place] [phone] documented in this encounter Visit Diagnoses Not on filedocumented in this encounter Care Teams Vice President Integrated Relationship Specialty Start Date End Date Malina Mckinney MD [address] [place] [phone] PCP - General Family Medicine 05/05/18 documented as of this encounter
--- OUTSIDE RECORDS SUMMARY | 2025-01-23 10:21 | XMS_ITS | Encounter Summary ---
Author Organization [employer] Address [address] [place] [address] 7 [place] [address] Care Team Providers Care Ornamental Iron Worker Apprentice Name Role Phone Malina Mckinney MD Primary Care Provider + Reason for Referral * Imaging (Urgent) - Closed Specialty Diagnoses / Procedures Referred By Contac t Referred To Contact Cardiology Diagnoses Edema of right lower extremity Procedures Vascular US lower extremity venous duplex right Brett Kwon MD [address] [place] [address] Phone: tel: fax: [facility] Referral ID Status Reason Start Date Expiration Date V isits Requested Visits Authorized [id number] Closed Perform Procedure 05/01/2024 05/01/2025 1 1 Encounter Details Date Type Department Care Team (Late st Contact Info) Description 05/01/2024 Orders Only [facility] [address] [place] [address] Brett Kwon MD [address] [place] [address] Edema of right lower extremity (Primary Dx) [...] Description 01/30/2025 9:30 AM EDT Office Visit [facility] [address] [place] [address] Joanne Grimaldo MD [address] [place] [address] documented as of this encounter Procedures Procedure Name Priority Date/Time Associated Diagnosis Comments US VENOUS DUPLEX LE RT Routine 05/02/2024 11:04 AM EDT documented in this encounter Results * US VENOUS DUPLEX LE RT (05/02/2024 11:04 AM EDT) Anatomical Region Laterality Modality Abdomen Ultrasound 05/02/2024 11:0 4 AM EDT Narrative 05/02/2024 2:06 PM EDT ? [facility] ?[address] ?[place] [address] ? Ultrasound Report ? Signed ? Patient: Keisha,Darwin ?MR#: [id number] ?? [id number] ? : 1980 ?Acct:[id number] ? Age/Sex: 43 / M ?ADM Date: 05/02/24 ? Loc: HO.US ? Attending Dr: Brett Kwon MD ? Ordering Physician: Brett Kwon MD ?? Date of Service: 05/02/24 ?? Procedure(s): US venous duplex LE RT ?? Accession Number(s): [id number] ? cc: Brett Kwon MD; Malina Mckinney [...] 1403 ? DD/ 1104 ? TD/TT: ? Lawn Service Worker: SS ? Procedure Note Peewee Malcolm - 05/02/2024 [address] [place] [address] Ultrasound Report Signed Patient: KeishaJamie fitzgerald RMR#: [id number] : 1980Acct:[id number] Age/Sex: 43 / MADM Date: 05/02/24 Loc: HO.US Attending Dr: Brett Kwon MD Ordering Physician: Brett Kwon MD Date of Service: 05/02/24 Procedure(s): US venous duplex LE RT Accession Number(s): [id number] cc: Brett Kwon MD; Malina Mckinney MD [...] in OV> 05/02/24 1403 DD/ 1104 TD/TT: Lawn Service Worker: SS us Brett Kwon MD IMG US PROCEDURES Final Res ult documented in this encounter Visit Diagnoses Diagnosis Edema of right lower extremity- Primary documented in this encounter Care Teams Ornamental Iron Worker Apprentice Relationship Specialty Start Date End Date Malina Mckinney MD [address] [place] [phone] PCP - General Family Medicine 05/05/18 documented as of this encounter
--- OUTSIDE RECORDS SUMMARY | 2025-01-23 10:21 | XMS_ITS | Encounter Summary ---
Author Organization [employer] Address [address] [facility] 7t [place] [address] Care Team Providers Care Transportation Planning Technician Name Role Phone Malina Mckinney MD Primary Care Provider + Reason for Visit * Reason Onset Date Comments INR results 12/07/2023 Encounter Details Date Type Department Care Team ([facility] st Contact Info) Description 12/07/2023 Telephone [facility] [address] [place] [address] America Chirinos, DDS [address] [place] [address] INR results Social History Tobacco Use Types [...] - 12/07/2023 3:53 PM EST Ramya from [facility] is faxing over INR results for patient coming intomorrow 12/08/2023 documented in this encounter Plan of Treatment Upcoming Encounters Date Type Department Care Team (Late st Contact Info) Description 01/30/2025 9:30 AM EDT Office Visit [facility] [address] [place] [address] Joanne Grimaldo MD [address] [place] [address] documented as of this encounter Visit Diagnoses Not on filedocumented in this encounter Care Teams Transportation Planning Technician Relationship Specialty Start Date End Date Malina Mckinney MD [address] [place] [address] PCP - General Family Medicine 05/05/18 documented as of this encounter
--- OUTSIDE RECORDS SUMMARY | 2025-01-23 10:21 | XMS_ITS | Encounter Summary ---
Author Organization [employer] Address [address] [facility] 7t [place] [address] Care Team Providers Care Frame Bander Name Role Phone Malina Mckinney MD Primary Care Provider + Reason for Visit * Reason Comments Transition Of Care (Tcm) HDF- scheduled and SDOH screening negative and Tobacco screening negative Encounter Details Date Type Department Care Team ([facility] st Contact Info) Description 01/16/2025 Patient Outreach [facility] [address] [place], [place] [phone] Malina Mckinney MD [address] [place], [place] [phone] Transition Of Care (Tcm) (HDF- scheduled and [...] Admission/Visit 01/07/25 Date of Discharge 01/10/25 Facility [facility] Diagnosis General medical Aortic valve replaced, Polyarticular [...] Wednesdays, and Walk-In Urgent Care Located in [facility]. Patient provided with after-hours line for [facility], , whichoffer night time triage service and option to transfer to document control specialist provider if needed. CC scanned discharge summary into patient's chart. Biggest concern for appointment at this time is requesting a property site manager referral. Appropriate screenings completed in anticipation of appointment. documented in this encounter Plan of Treatment Upcoming Encounters Date Type Department Care Team (Late st Contact Info) Description 01/30/2025 9:30 AM EDT Office Visit [facility] [address] [place], [place] [phone] Joanne Grimaldo MD [address] [place], [place] [phone] documented as of this encounter Visit Diagnoses Not on filedocumented in this encounter Care Teams Frame Bander Relationship Specialty Start Date End Date Malina Mckinney MD [address] [place], [place] [phone] PCP - General Family Medicine 05/05/18 documented as of this encounter
--- OUTSIDE RECORDS SUMMARY | 2025-01-23 10:21 | XMS_ITS | Encounter Summary ---
Author Organization [employer] Address [address] [facility] 7t [place] [address] Care Team Providers Care Coal Weigher Name Role Phone Malina Mckinney MD Primary Care Provider + Encounter Details Date Type Department Care Team ([facility] st Contact Info) Description 01/16/2025 [...] 9:30 AM EDT Office Visit [facility] [address] [place] [address] Joanne Grimaldo MD [address] [place], [place] [phone] documented as of this encounter Procedures Procedure Name Priority Date/Time Associated Diagnosis Comments PROTHROMBIN TIME WHOLE BLD POC Routine 01/16/2025 9:29 AM EST ~PT, ~INR - ANTI COAG CLINIC Routine 01/16/2025 9:29 AM EST documented in this encounter Results * (ABNORMAL) PROTHROMBIN TIME WHOLE BLD POC (01/16/2025 9:29 AM EST) Protime 41.1(H) 11.1 - 13.5 sec [facility] 01/16/2025 9:29 AM EST 01/16/2025 9:32 AM EST us Generic External Data Provider LAB BLOOD ORDERAB LES Final Result [facility] [address] [place] [phone] * (ABNORMAL) ~PT, ~INR - ANTI COAG CLINIC (01/16/2025 9:29 AM EST) Prothrombin Time INR 3.4(H) 0.9 - 1.1 [facility] Comment:METER #: [id number] TERNATIONAL NORMALIZED RATIO (INR) REFERENCE RANGES Reference [...] LES Final Result Performing Organization Address City/State/[facility] Co de Phone Number [facility] [address] [place] [phone] documented in this encounter Visit Diagnoses Not on filedocumented in this encounter Care Teams Coal Weigher Relationship Specialty Start Date End Date Malina Mckinney MD [address] [place] [phone] PCP - General Family Medicine 05/05/18 documented as of this encounter
--- OUTSIDE RECORDS SUMMARY | 2025-01-23 10:21 | XMS_ITS | Encounter Summary ---
Author Organization [employer] Address [address] [facility] 7t [place] [address] Care Team Providers Care Bed Rubber Name Role Phone Malina Mckinney MD Primary Care Provider + Encounter Details Date Type Department Care Team (Late st Contact Info) Description 12/19/2023 Abstract [facility] ADULT DENTAL [address] [place], [place] [phone] Thiago, Dalia [address] [place] [address] Social History Tobacco Use Types Packs/Day Years [...] Description 01/30/2025 9:30 AM EDT Office Visit [facility] [address] [place], [place] [phone] Joanne Grimaldo MD [address] [place] [address] documented as of this encounter Visit Diagnoses Not on filedocumented in this encounter Care Teams Bed Rubber Relationship Specialty Start Date End Date Malina Mckinney MD [address] [place] [address] [phone] PCP - General Family Medicine 05/05/18 documented as of this encounter
--- OUTSIDE RECORDS SUMMARY | 2025-01-23 10:21 | XMS_ITS | Encounter Summary ---
Author Organization [employer] Address [address] [facility] 7t [place] [address] Care Team Providers Care Press Breaker Name Role Phone Malina Mckinney MD Primary Care Provider + Reason for Visit * Reason Onset Date Comments Hospital Follow-up 01/16/2025 Encounter Details Date Type Department Care Team ([facility] st Contact Info) Description 01/16/2025 Telephone [facility] MEDICINE [address] [place], [place] [phone] Malina Mckinney MD [address] [place], [place] [phone] Hospital Follow-up Social History Tobacco Use Types [...] from pt requesting a HDF appt. Hospital: [facility] Date of admission: 01/07 Discharge date: 01/10 Diagnosed: right ankle pain, right wrist pain *Send message to [place] Clinical Care Coordinators [phone] maldivian documented in this encounter Plan of Treatment Upcoming Encounters Date Type Department Care Team (Late st Contact Info) Description 01/30/2025 9:30 AM EDT Office Visit [facility] MED[facility]INE [address] [place] [address] Joanne Grimaldo MD [address] [place] [address] documented as of this encounter Visit Diagnoses Not on filedocumented in this encounter Care Teams Press Breaker Relationship Specialty Start Date End Date Malina Mckinney MD [address] [place] [address] PCP - General Family Medicine 05/05/18 documented as of this encounter
== END 2025-01-23 09:41 | disposition home or self-care (01) ==
LOC: HO.ACS 09:17
PROVIDERS: PCP Internal Medicine; Visit Provider Internal Medicine
DX: Z79.01 Long term (current) use of anticoagulants (principal)

== ENCOUNTER → 2025-01-23 09:17 | Outpatient (BNVA) | payer BC, SELFPAY | PROVIDERS: PCP Internal Medicine; Visit Provider Internal Medicine | DX: Z95.2 Presence of prosthetic heart valve (principal); Z79.01 Long term (current) use of anticoagulants; Z51.81 Encounter for therapeutic drug level monitoring | CPT/HCPCS: 85610; 99211 ==

== ENCOUNTER 2025-02-06 08:45 | Outpatient (AMB) | payer BC, SELFPAY ==
--- NOTE | 2025-02-06 09:21 | MHC.OFFVISCO ---
Intake Intake Visit Reasons: Anticoagulation Allergies No Known Allergies Allergy (Verified 02/06/25 09:13) Medication List - Last Reconciled 02/06/25 by Karolina Mcfadden RN chlorhexidine gluconate 0.12% PO metoprolol tartrate 50 mg PO BID warfarin 4 mg See Protocol PO DAILY Nursing Note INR 4.6-?? out of therapeutic range 2.5- 3.5 Medications and supplements reviewed Patient status: pt recent issues with gout right hand and foot, had been on amox and prednisone and colchicine Medications or supplements: finished above meds, no other med changes, had prednisone 20mg bid last week Diet: appetite good denies etoh Denies any signs and symptoms of bleeding or clotting or unusual bruising Bleeding, bruising, clotting discussed - aware risk of bleeding/bruising Nutritional guidance given: eat greens to lower Dose: already took 4mg this am, pt req 2mg tomm rather than hold and then cont reg dosing F/U INR Date : 1 week Patient verbalizing understanding of instructions given. Anti-Coag Initial Assessment Social Hx Patient Tobacco Use Status: Never used Tobacco alcohol intake: current Alcohol intake frequency: a few times a week Cardiovascular Hx: Other Lung Disease HX: Other GI Hx: Other Cancer HX: No Psych. Illness/Depression: No Coding Level of Care Code Est Patient Level 1 Diagnoses Current use of anticoagulant therapy Z79.01 Assessment & Plan Assessment & Plan (1) Current use of anticoagulant therapy: Code(s): Z79.01 - custodial (current) use of anticoagulants Category: Medical
[2025-02-06 09:22] LABS: Prothrombin Time Whole Bld POC 54.6 sec (11.1-13.5); ~PT, ~INR - Anti Coag Clinic 4.6 (0.9-1.1)
--- OUTSIDE RECORDS SUMMARY | 2025-02-06 09:37 | XMS_ITS | Encounter Summary ---
Author Organization [employer] Address [address] [facility] 7t [place] [address] Care Team Providers Care Research Food Technologist Name Role Phone Malina Mckinney MD Primary Care Provider + Encounter Details Date Type Department Care Team ([facility] st Contact Info) Description 01/23/2025 Orders [...] EST) Protime 37.4(H) 11.1 - 13.5 sec [facility] 01/23/2025 9:30 AM EST 01/23/2025 9:31 AM EST us Generic External Data Provider LAB BLOOD ORDERAB LES Final Result Performing Organization Address City/State/[facility] Co de Phone Number [facility] [address] [place] [phone] * (ABNORMAL) ~PT, ~INR - ANTI COAG CLINIC (01/23/2025 9:30 AM EST) Prothrombin Time INR 3.1(H) 0.9 - 1.1 [facility] Comment:METER #: [id number] TERNATIONAL NORMALIZED RATIO (INR) REFERENCE RANGES Reference [...] ORDERAB LES Final Result Performing Organization Address City/State/[facility] Co de Phone Number [facility] [address] [place] [phone] documented in this encounter Visit Diagnoses Not on filedocumented in this encounter Care Teams Research Food Technologist Relationship Specialty Start Date End Date Malina Mckinney MD [address] [place] [phone] PCP - General Family Medicine 05/05/18 documented as of this encounter
--- OUTSIDE RECORDS SUMMARY | 2025-02-06 09:37 | XMS_ITS | Encounter Summary ---
Author Organization [employer] Address [address] [facility] 7t [place] [address] Care Team Providers Care Donor Relations Manager Name Role Phone Malina Mckinney MD Primary Care Provider + Reason for Referral * Consultation (Routine) - Authorized Specialty Diagnoses / Procedures Referred By Contac t Referred To Contact Rheumatology Diagnoses Polyarthritis, inflammatory (CMS/HCC) Malina Mckinney MD [address] [place] [address] Phone: tel: fax: [facility] [address] [facility] 1st [place], [place] Phone: tel: fax: Referral ID Status Reason Start Date Expiration Date Visits Requested Visits Authorized [id number] Authorized Specialty Services Required 01/16/2025 01/16/2026 1 1 Encounter Details Date Type Department Care Team (Late st Contact Info) Description 01/16/2025 Orders Only [facility] MEDICINE [address] [place], [place] [phone] Malina Mckinney MD [address] [place] [address] Polyarthritis, inflammatory (CMS/HCC) (Primary Dx) [...] documented in this encounter Plan of Treatment Scheduled Referrals Name Type Priority Associated Diagnoses Orde r Schedule Referral to Rheumatology Outpatient Referral Routine Polyarthritis, inflammatory (CMS/HCC) Expected: 01/16/2025 (Approximate), Expires: 01/16/2026 documented as of this encounter Visit Diagnoses Diagnosis Polyarthritis, inflammatory (CMS/HCC)- Primary Unspecified inflammatory polyarthropathy documented in this encounter Care Teams Donor Relations Manager Relationship Specialty Start Date End Date Malina Mckinney MD [address] [place] [phone] PCP - General Family Medicine 05/05/18 documented as of this encounter
--- OUTSIDE RECORDS SUMMARY | 2025-02-06 09:37 | XMS_ITS | Encounter Summary ---
Author Organization [employer] Address 75 [facility] 7t [place] [address] Care Team Providers Care Shoemaker Custom Name Role Phone Malina Mckinney MD Primary Care Provider + Reason for Visit * Reason Onset Date Comments Nurse Triage 01/18/2025 Encounter Details Date Type Department Care Team ([facility] st Contact Info) Description 01/18/2025 Telephone [facility] MEDICINE [address] [place], [place] [phone] Malina Mckinney MD [address] [place] [address] Nurse Triage Social History Tobacco Use Types [...] t he electric, gas, oil or water [employer] threatened to shut off services in your [...] RN - 01/18/2025 12:51 PM EST No historic interpreter needed as this editorial writer speaks Brazilian. Call returned to Jamie Valdes to triage below. Reports having fever and body aches x 1 day. No cough, congestion, RIDER or ST. Denies any sick contacts. Pt has not home tested for COVID-19. Pt had recent admission to [facility] 01/07-01/10 for General medical Aortic valve replaced, [...] verbalized understanding. Given contact for [facility] in [place] as resource. Protocol Used: Muscle Aches and [...] caller accepted this outcome. Contact pt at [phone] documented in this encounter Plan of Treatment Not on file documented as of this encounter Visit Diagnoses Not on filedocumented in this encounter Care Teams Shoemaker Custom Relationship Specialty Start Date End Date Malina Mckinney MD [address] [place] [phone] PCP - General Family Medicine 05/05/18 documented as of this encounter
--- OUTSIDE RECORDS SUMMARY | 2025-02-06 09:37 | XMS_ITS | Encounter Summary ---
Author Organization [employer] Address [address] [facility] 7t [place] [address] Care Team Providers Care Tank Washer Name Role Phone Malina Mckinney MD Primary Care Provider + Encounter Details Date Type Department Care Team (Late st Contact Info) Description 12/19/2023 Abstract [facility] ADULT DENTAL [address] [place], [place] [phone] Thiago, Dalia [address] [place] [address] Social History Tobacco Use Types Packs/Day Years [...] on filedocumented in this encounter Care Teams Tank Washer Relationship Specialty Start Date End Date Malina Mckinney MD [address] [place] [address] PCP - General Family Medicine 05/05/18 documented as of this encounter
--- OUTSIDE RECORDS SUMMARY | 2025-02-06 09:37 | XMS_ITS | Encounter Summary ---
Author Organization [employer] Address [address] [facility] 7t [place] [address] Care Team Providers Care Spine Nurse Name Role Phone Malina Mckinney MD Primary Care Provider + Reason for Visit * Reason Onset Date Comments Hospital Follow-up 01/16/2025 Encounter Details Date Type Department Care Team ([facility] st Contact Info) Description 01/16/2025 Telephone [facility] MEDICINE 230 [place], [place] [phone] Malina Mckinney MD [address] [place], [place] [phone] Hospital Follow-up Social History Tobacco Use Types [...] requesting a HDF appt. Hospital: [facility] Date of admission: 01/07 Discharge date: 01/10 Diagnosed: right ankle pain, right wrist pain *Send message to [place] Clinical Care Coordinators [phone] american documented in this encounter Plan of Treatment Not on file documented as of this encounter Visit Diagnoses Not on filedocumented in this encounter Care Teams Spine Nurse Relationship Specialty Start Date End Date Malina Mckinney MD [address] [place] [phone] PCP - General Family Medicine 05/05/18 documented as of this encounter
--- OUTSIDE RECORDS SUMMARY | 2025-02-06 09:37 | XMS_ITS | Encounter Summary ---
Author Organization [employer] Address 75 [facility] 7t [place] [address] Care Team Providers Care Cane Furniture Maker Name Role Phone Malina Mckinney MD Primary Care Provider + Reason for Visit * Reason Onset Date Comments Medication Question 01/23/2025 Encounter Details Date Type Department Care Team ([facility] st Contact Info) Description 01/23/2025 Refill [facility] MEDICINE [address] [place], [place] [phone] Malina Mckinney MD [address] [place] [address] Social History Tobacco Use Types Packs/Day Years [...] * Telephone Encounter - Aidee Corea - 01/23/2025 10:48 AM EST Tc from pt stating on his visit to [facility] (01/07) was prescribed Colchicine 0.6 MG twice a day but was only given 30 pills. He's asking if PCP can prescribe medication to complete treatment since [facility] told pt he should contact PCP. documented in this encounter Plan of Treatment Not on file documented as of this encounter Visit Diagnoses Not on filedocumented in this encounter Care Teams Cane Furniture Maker Relationship Specialty Start Date End Date Malina Mckinney MD [address] [place] [phone] PCP - General Family Medicine 05/05/18 documented as of this encounter
--- OUTSIDE RECORDS SUMMARY | 2025-02-06 09:37 | XMS_ITS | Encounter Summary ---
Author Organization [employer] Address 75 [facility] 7t [place] [address] Care Team Providers Care Tire Beader Maker Name Role Phone Malina Mckinney MD Primary Care Provider + Reason for Visit * Reason Onset Date Comments Referral 01/17/2025 Encounter Details Date Type Department Care Team ([facility] st Contact Info) Description 01/17/2025 Telephone [facility] MEDICINE 230 [place], [place] [phone] Malina Mckinney MD [address] [place] [address] Referral Social History Tobacco Use Types Packs/Day [...] Miscellaneous Notes * Telephone Encounter - Skylar Hopkins RN - 01/18/2025 2:30 PM EST Telephone call to pt to advise that rheumatology referral was processed today and it was made to [facility], not [facility] Rheumatology as previously told. Explained to pt [...] office number provider per below message . [facility] Rheumatology are not excepting new patients at [...] on filedocumented in this encounter Care Teams Tire Beader Maker Relationship Specialty Start Date End Date Malina Mckinney MD [address] [place] [phone] PCP - General Family Medicine 05/05/18 documented as of this encounter
--- OUTSIDE RECORDS SUMMARY | 2025-02-06 09:37 | XMS_ITS | Encounter Summary ---
Author Organization [employer] Address 75 [facility] 7t [place] [address] Care Team Providers Care Physical Therapy Director Name Role Phone Malina Mckinney MD Primary Care Provider + Reason for Visit * Reason Comments Transition Of Care (Tcm) HDF- scheduled and SDOH screening negative and Tobacco screening negative Encounter Details Date Type Department Care Team ([facility] st Contact Info) Description 01/16/2025 Patient Outreach [facility] MEDICINE 230 [place], [place] [phone] Malina Mckinney MD [address] [place], [place] [phone] Transition Of Care (Tcm) (HDF- scheduled and [...] Admission/Visit 01/07/25 Date of Discharge 01/10/25 Facility [facility] Diagnosis General medical Aortic valve replaced, [...] Wednesdays, and Walk-In Urgent Care Located in [facility]. Patient provided with after-hours line for [facility], , whichoffer night time triage service and option to transfer to adapted physical education specialist provider if needed. CC scanned discharge summary into patient's chart. Biggest concern for appointment at this time is requesting a stamping machine operator referral. Appropriate screenings completed in anticipation of appointment. documented in this encounter Plan of Treatment Not on file documented as of this encounter Visit Diagnoses Not on filedocumented in this encounter Care Teams Physical Therapy Director Relationship Specialty Start Date End Date Malina Mckinney MD [address] [place] [phone] PCP - General Family Medicine 05/05/18 documented as of this encounter
--- OUTSIDE RECORDS SUMMARY | 2025-02-06 09:37 | XMS_ITS | Encounter Summary ---
Author Organization [employer] Address 75 [facility] 7t [place] [address] Care Team Providers Care Spiral Winding Machine Helper Name Role Phone Malina Mckinney MD Primary Care Provider + Encounter Details Date Type Department Care Team ([facility] st Contact Info) Description 01/16/2025 Orders Only [...] EST) Protime 41.1(H) 11.1 - 13.5 sec [facility] 01/16/2025 9:29 AM EST 01/16/2025 9:32 AM EST us Generic External Data Provider LAB BLOOD ORDERAB LES Final Result Performing Organization Address City/State/[facility] Co de Phone Number [facility] [address] [place] [address] [phone] * (ABNORMAL) ~PT, ~INR - ANTI COAG CLINIC (01/16/2025 9:29 AM EST) Prothrombin Time INR 3.4(H) 0.9 - 1.1 [facility] Comment:METER #: [id number] TERNATIONAL NORMALIZED RATIO (INR) REFERENCE RANGES Reference [...] ORDERAB LES Final Result Performing Organization Address City/State/[facility] Co de Phone Number [facility] [address] [place] [address] [phone] documented in this encounter Visit Diagnoses Not on filedocumented in this encounter Care Teams Spiral Winding Machine Helper Relationship Specialty Start Date End Date Malina Mckinney MD [address] [place] [address] PCP - General Family Medicine 05/05/18 documented as of this encounter
--- OUTSIDE RECORDS SUMMARY | 2025-02-06 09:37 | XMS_ITS | Encounter Summary ---
Author Organization [employer] Address 75 [facility] 7t [place] [address] Care Team Providers Care Computer Technical Specialist Name Role Phone Malina Mckinney MD Primary Care Provider + Reason for Visit * Reason Onset Date Comments INR results 12/07/2023 Encounter Details Date Type Department Care Team ([facility] st Contact Info) Description 12/07/2023 Telephone [facility] ADULT DENTAL [address] [place] [address] America Chirinos, DDS [address] [place] [address] INR results Social History Tobacco Use Types [...] - 12/07/2023 3:53 PM EST Ramya from [facility] is faxing over INR results for patient coming intomorrow 12/08/2023 documented in this encounter Plan of Treatment Not on file documented as of this encounter Visit Diagnoses Not on filedocumented in this encounter Care Teams Computer Technical Specialist Relationship Specialty Start Date End Date Malina Mckinney MD [address] [place] [address] PCP - General Family Medicine 05/05/18 documented as of this encounter
--- OUTSIDE RECORDS SUMMARY | 2025-02-06 09:37 | XMS_ITS | Encounter Summary ---
Author Organization [employer] Address 75 [facility] 7t [place] [address] Care Team Providers Care Bulbs Farmworker Name Role Phone Malina Mckinney MD Primary Care Provider + Encounter Details Date Type Department Care Team ([facility] st Contact Info) Description 01/11/2025 Orders Only [...] EST) Protime 28.9(H) 11.1 - 13.5 sec [facility] 01/11/2025 3:38 PM EST 01/11/2025 3:40 PM EST us Generic External Data Provider LAB BLOOD ORDERAB LES Final Result Performing Organization Address City/State/[facility] Co de Phone Number [facility] [address] [place] [phone] * (ABNORMAL) ~PT, ~INR - ANTI COAG CLINIC (01/11/2025 3:38 PM EST) Prothrombin Time INR 2.4(H) 0.9 - 1.1 [facility] Comment:METER #: [id number] TERNATIONAL NORMALIZED RATIO (INR) REFERENCE RANGES Reference [...] ORDERAB LES Final Result Performing Organization Address City/State[facility] Co de Phone Number [facility] [address] [place] [phone] documented in this encounter Visit Diagnoses Not on filedocumented in this encounter Care Teams Bulbs Farmworker Relationship Specialty Start Date End Date Malina Mckinney MD [address] [place] [phone] PCP - General Family Medicine 05/05/18 documented as of this encounter
--- OUTSIDE RECORDS SUMMARY | 2025-02-06 09:37 | XMS_ITS | Encounter Summary ---
Author Organization [employer] Address [address] [facility] [address] 7t [place] [address] Care Team Providers Care Steam Shovel Oiler Name Role Phone Malina Mckinney MD Primary Care Provider + Encounter Details Date Type Department Care Team (Late st Contact Info) Description 01/30/2025 9:30 AM EDT Office Visit [facility] 230 [place], [place] [phone] Joanne Grimaldo MD 230 [place], [place] [phone] Polyarthritis, inflammatory (CMS/HCC) (Primary Dx); Balanitis Social History Tobacco Use Types Packs/Day Years Used Date Smoking Tobacco: Never Passive Smoke Exposure: Never Smokeless Tobacco: Never Tobacco Cessation:Counseling Given: [...] AM EDT documented as of this encounter Last Filed Vital Signs Vital Sign Reading Time Taken Comments Blood Pressure 122/79 01/30/2025 9:24 AM EDT Pulse 80 01/30/2025 9:24 AM EDT Temperature 36.4 ??C (97.6 ??F) 01/30/2025 9:24 AM ED T Respiratory Rate 16 01/30/2025 9:24 AM EDT Oxygen Saturation - - Inhaled Oxygen Concentration - - Weight 86.4 kg (190 lb 6.4 oz) 01/30/2025 9:24 A M EDT Height 180.3 cm (5' 11 ) 01/30/2025 9:24 AM EDT Body Mass Index 26.56 01/30/2025 9:24 AM EDT documented in this encounter Progress Notes * Joanne Billings MD - 01/30/2025 9:30 AM EDT SUBJECTIVE: Jamie Valdes is a 44 y.o. year old male who presents for HDF . [facility] (01/07/2025 - 01/10/2025) Patient presented with atraumatic right foot pain and right hand pain that began 2 days prior. The patient was admitted for polyarthritis. While awaiting synovial fluid culture results, empirical treatment with colchicine 0.6 mg twice daily was initiated. X-ray showed no acute findings, but there was possible soft tissue involvement. Empiric antibiotic therapy with Augmentin was started. The patient's INR was supra therapeutic (3.8), warfarin was held. Cultures returned negative for bacterial infection. The patient was discharged home with a prescription for prednisone and antibiotics for cellulitis. Patient was instructed to follow up with their PCP for INR recheck and warfarin dosing adjus tments, and to obtain a referral to rheumatology for further workup. Medication changes that occurred during hospitalization include: Added Acetaminophen 325 m tablets by mouth three times daily for 10 days Augmentin 875 mg-125 mg by mouth two times daily for 5 days Colchicine 0.6 mg by mouth two times daily Oxycodone 5 mg by mouth every 4 hours as needed for moderate pain for 3 days Prednisone 40 mg by mouth once daily for 4 days Changed: none Held: warfarin Discontinued: none Acute Concerns: Patient reports he feels better since hospitalization but he is right hand is still pretty tender and he it is very challenging for him to do his regular activities at home like opening bottle, patient already has an appointment with rheumatology Patient today also complained of having some issues again with foreskin retraction again in the area of the penis he has some abrasions and some burning sensation with urination, he has history of recurrent balanitis Social History Social History Narrative Not on file Patient Active Problem List Diagnosis Rectal/anal ulcer Uveitis Influenza-like symptoms History of aortic valve replacement Left anterior knee pain Pure hypercholesterolemia Acute pain of both shoulders Balanitis Neck pain Vitamin D deficiency Periodontal disease Dental calculus Localized gingival recession, minimal Bilateral leg edema Venous insufficiency (chronic) (peripheral) Polyarthritis, inflammatory (CMS/HCC) No family history on file. Review of Systems Constitutional: Negative. HENT: Negative. Respiratory: Negative. Cardiovascular: Negative. Musculoskeletal: Positive for arthralgias, joint swelling and myalgias. OBJECTIVE: Vitals: 01/30/25 0924 BP: 122/79 BP Location: Left arm Patient Position: Sitting BP Cuff Size: Adult Pulse: 80 Resp: 16 Temp: 97.6 ??F (36.4 ??C) TempSrc: Oral Weight: 190 lb 6.4 oz (86.4 kg) Height: 5' 11 (1.803 m) Physical Exam Constitutional: Appearance: Normal appearance. Cardiovascular: Rate and Rhythm: Normal rate and regular rhythm. Pulmonary: Effort: Pulmonary effort is normal. Breath sounds: Normal breath sounds. Abdominal: General: Abdomen is flat. Palpations: Abdomen is soft. Musculoskeletal: Right wrist: Tenderness present. Decreased range of motion. Neurological: Mental Status: He is alert. Follow Up: No follow-ups on file. Current Outpatient Medications on File Prior to Visit Medication Sig Dispense Refill colchicine 0.6 MG tablet Take 1 tablet (0.6 mg) by mouth 2 times daily for 15 days. 30 tablet 0 metoprolol tartrate (Lopressor) 50 MG tablet Take 1 tablet by mouth every 12 (twelve) hours. warfarin (Coumadin) 4 MG tablet Take 4 mg by mouth on Tuesday, Tuesday, and Tuesday warfarin (Coumadin) 6 MG tablet Take 6 mg by mouth. Take 6 mg by mouth on Tuesday, Tuesday, , and Tuesday [DISCONTINUED] warfarin (Coumadin) 3 MG tablet See Instructions, 1 tablet By Mouth Once tonight then as directed based on daily inr level, # 30 tablet, 0 Refills, Soft Stop, 06/16/21 8:04:00 EDT, Tablet, [facility], Partial fill upon patient request if the prescription is for a sched... [DISCONTINUED] warfarin (Coumadin) 4 MG tablet 4 mg on Tuesday, Tuesday, and Tuesday / 6 mg on Tuesday, Tuesday, , and Tuesday No current facility-administered medications on file prior to visit. Problem List Items Addressed This Visit Polyarthritis, inflammatory (CMS/HCC) - Primary Patient already referred to rheumatology I will prescribe short course of prednisone for his pain on his right hand Relevant Medications predniSONE (Deltasone) 20 MG tablet Balanitis Maintain area dry and clean Clotrimazole with Betamethasone cream prescribed Relevant Medications clotrimazole-betamethasone (Lotrisone) cream documented in this encounter Miscellaneous Notes * Assessment & Plan Note - Joanne Billings MD - 01/30/2025 1:59 PM EDT Associated Problem(s): Polyarthritis, inflammatory (CMS/HCC) Patient already referred to rheumatology I will prescribe short course of prednisone for his pain on his right hand * Assessment & Plan Note - Joanne Billings MD - 01/30/2025 1:59 PM EDT Associated Problem(s): Balanitis Maintain area dry and clean Clotrimazole with Betamethasone cream prescribed documented in this encounter Plan of Treatment Not on file documented as of this encounter Visit Diagnoses Diagnosis Polyarthritis, inflammatory (CMS/HCC)- Primary Unspecified inflammatory polyarthropathy Balanitis Balanoposthitis documented in this encounter Care Teams Steam Shovel Oiler Relationship Specialty Start Date End Date Malina Mckinney MD [address] [place] [phone] PCP - General Family Medicine 05/05/18 documented as of this encounter
--- OUTSIDE RECORDS SUMMARY | 2025-02-06 09:37 | XMS_ITS | Encounter Summary ---
Author Organization [employer] Address [address] [place] [address] 7 [place] [address] Care Team Providers Care Hammerer Helper Name Role Phone Malina Mckinney MD Primary Care Provider + Reason for Referral * Imaging (Urgent) - Closed Specialty Diagnoses / Procedures Referred By Contac t Referred To Contact Cardiology Diagnoses Edema of right lower extremity Procedures Vascular US lower extremity venous duplex right Brett Kwon MD [address] [place] [address] Phone: tel: fax: [facility] Referral ID Status Reason Start Date Expiration Date V isits Requested Visits Authorized [id number] Closed Perform Procedure 05/01/2024 05/01/2025 1 1 Encounter Details Date Type Department Care Team (Late st Contact Info) Description 05/01/2024 Orders Only [facility] MED [facility] PEDS [address] [place] [address] Brett Kwon MD [address] [place] [address] Edema of right lower extremity (Primary Dx) [...] EDT Narrative 05/02/2024 2:06 PM EDT ? [facility] ?[address] ?[place] [address] ? Ultrasound Report ? Signed ? Patient: Keisha,Darwin ?MR#: [id number] ?? [id number] ? : 1980 ?Acct:[id number] ? Age/Sex: 43 / M ?ADM Date: 06/12/24 ? Loc: HO.US ? Attending Dr: Brett Kwon MD ? Ordering Physician: Brett Kwon MD ?? Date of Service: 05/02/24 ?? Procedure(s): US venous duplex LE RT ?? Accession Number(s): [id number] ? cc: Brett Kwon MD; Malina Mckinney [...] 1403 ? DD/ 1104 ? TD/TT: ? Tumbler Operator: SS ? Procedure Note Peewee Malcolm - 05/02/[address] [address] Ultrasound Report Signed Patient: Jamie Valdes R#: [id number] : 1980Acct:[id number] Age/Sex: 43 / MADM Date: 05/02/24 Loc: HO.US Attending Dr: Brett Kwon MD Ordering Physician: Brett Kwon MD Date of Service: 05/02/24 Procedure(s): US venous duplex LE RT Accession Number(s): [id number] cc: Brett Kwon MD; Malina Mckinney MD [...] in OV> 05/02/24 1403 DD/ 1104 TD/TT: Tumbler Operator: SS us Brett Kwon MD IMG US PROCEDURES Final Res ult documented in this encounter Visit Diagnoses Diagnosis Edema of right lower extremity- Primary documented in this encounter Care Teams Hammerer Helper Relationship Specialty Start Date End Date Malina Mckinney MD [address] [place] [phone] PCP - General Family Medicine 05/05/18 documented as of this encounter
--- OUTSIDE RECORDS SUMMARY | 2025-02-06 09:37 | XMS_ITS | Encounter Summary ---
Author Organization [employer] Address [address] [facility] 7t [place] [address] Care Team Providers Care Pot Puller Name Role Phone Malina Mckinney MD Primary Care Provider + Reason for Visit * Reason Onset Date Comments Chart Prep 01/25/2025 Encounter Details Date Type Department Care Team ([facility] st Contact Info) Description 01/25/2025 Telephone [facility] [address], [place] [phone] Malina Mckinney MD [address] [place] [address] Chart Prep Social History Tobacco Use Types Packs/Day Years [...] t he electric, gas, oil or water [employer] threatened to shut off services in your [...] encounter Miscellaneous Notes * Telephone Encounter - Theresa Atkins MA - 01/25/2025 11:11 AM EST Chart Prep Labs: done Images: done Vaccines due: yes Referrals: pending appt Screenings: colonoscopy Overdue care gaps: Sbirt, NATHAN-7 Discharge notes in chart documented in this encounter Plan of Treatment Not on file documented as of this encounter Visit Diagnoses Not on filedocumented in this encounter Care Teams Pot Puller Relationship Specialty Start Date End Date Malina Mckinney MD [address] [place] [phone] PCP - General Family Medicine 05/05/18 documented as of this encounter
--- OUTSIDE RECORDS SUMMARY | 2025-02-06 09:37 | XMS_ITS | Clinical Summary ---
Author Organization [employer] Address [address] [place] [address] 7t [place] [address] Care Team Providers Care Broom Maker Name Role Phone Malina Mckinney MD Primary Care Provider + Allergies No known active allergies Medications metoprolol tartrate (Lopressor) 50 MG tablet Take 1 tablet by mouth every 12 (twelve) hours. Active colchicine 0.6 MG tablet Take 1 tablet (0.6 mg) by mouth 2 times daily for 15 days. 30 tablet 025 2024 Active warfarin (Coumadin) 6 MG tablet Take 6 mg by mouth. Take 6 mg by mouth on Tuesday, Tuesday, , and Tuesday Active warfarin (Coumadin) 4 MG tablet Take 4 mg by mouth on Tuesday, Tuesday, and Tuesday 022 Active clotrimazole-be tamethasone (Lotrisone) creamIndication s:Balanitis Apply topically 2 times daily for 28 days. 15 g 025 2024 Active warfarin (Coumadin) 3 MG tablet See Instructions, 1 tablet By Mouth Once tonight then as directed based on daily inr level, # 30 tablet, 0 Refills, Soft Stop, 06/16/21 8:04:00 EDT, Tablet, [facility], Partial fill upon patient request if the prescription is for a sched... 021 2024 Discontinued(M ed list cleanup (will not trigger notification to Pharmacy)) warfarin (Coumadin) 4 MG tablet 4 mg on Tuesday, Tuesday, and Tuesday / 6 mg on Tuesday, Tuesday, , and Tuesday 025 2024 Discontinued(M ed list cleanup (will not trigger notification to Pharmacy)) predniSONE (Deltasone) 20 MG tabletIndicatio ns:Polyarthriti s, inflammatory (CMS/HCC) Take 2 tablets (40 mg) by mouth Once per day for 5 days. 10 tablet 025 2024 Active Problems Problem Noted Date Diagnosed Date Polyarthritis, inflammatory 01/30/2025 Assessment & Plan (01/30/2025 1:59 PM EDT): Patient already referred to rheumatology I will prescribe short course of prednisone for his pain on his right hand Bilateral leg edema 05/29/2024 Venous insufficiency (chronic) [...] pain of both shoulders 08/10/2023 Balanitis 08/10/2023 Assessment & Plan (01/30/2025 1:59 PM EDT): Maintain area dry and clean Clotrimazole with Betamethasone cream prescribed Neck pain 08/10/2023 Influenza-like symptoms 08/09/2023 History of aortic valve replacement 08/09/2023 Assessment & Plan (11/22/2024 5:20 PM EST): -He is on cumadin followed by the [facility]. INR goal is 2.5-3.5 -Recommend amoxicillin 1 [...] -He is on cumadin followed by the [facility]. INR goal is 2.5-3.5 -Recommend amoxicillin 1 [...] Encounters Date Type Department Care Team Description 02/06/2025 Orders Only GENERIC EXTERNAL DATA DEPARTMENT Provider, Generic External Data 01/30/2025 9:30 AM EDT Office Visit [address] [address] Joanne Grimaldo MD Polyarthritis, inflammatory (CMS/HCC) (Primary Dx); Chandananitis 01/30/2025 Travel 01/25/[address] [address] Malina Mckinney MD Chart Prep 01/23/[address] [address] Malina Mckinney MD 01/23/2025 Orders Only GENERIC EXTERNAL DATA DEPARTMENT Provider, Generic External Data 01/18/[address] [address] Malina Mckinney MD Nurse Triage 01/17/[address] [address] Malina Mckinney MD Referral 01/16/2025 Orders Only [address] [address] Malina Mckinney MD Polyarthritis, inflammatory (CMS/HCC) (Primary Dx) 01/16/2025 Patient Outreach [address] [address] Malina Mckinney MD Transition Of Care (Tcm) (HDF- scheduled and SDOH screening negative and Tobacco screening negative) 01/16/2025 Orders Only GENERIC EXTERNAL DATA DEPARTMENT Provider, Generic External Data 01/16/[address] [address] Malina Mckinney MD Hospital Follow-up 01/11/2025 Orders Only GENERIC EXTERNAL DATA DEPARTMENT Provider, Generic External Data 12/21/[address] [address] Malina Mckinney MD February11/22/2024 Orders Only GENERIC [...] 16 01/30/2025 9:24 AM EDT Oxygen Saturation 98% 08/30/2024 9:50 AM EDT Inhaled Oxygen Concentration - - Weight 86.4 kg (190 lb 6.4 oz) 01/30/2025 9:24 A M EDT Height 180.3 cm (5' 11 ) 01/30/2025 9:24 AM EDT Body Mass Index 26.56 01/30/2025 9:24 AM EDT Plan of Treatment Health Maintenance [...] Screening 05/29/2025 05/29/2024, 05/29/20 24 SDOH Screening 01/16/2026 01/16/2025 Tobacco Screening 01/30/2026 01/30/2025 Dental X-Ray: Full Mouth 09/29/2026 09/28/2023 Lipid [...] Comments PROTHROMBIN TIME WHOLE BLD POC Routine 02/06/2025 9:19 AM EDT ~PT, ~INR - ANTI COAG CLINIC Routine 02/06/2025 9:19 AM EDT PROTHROMBIN TIME WHOLE BLD POC Routine 01/23/2025 [...] COAG CLINIC Routine 11/22/2024 9:29 AM EST PROPHYLAXIS - ADULT Routine 12/08/2023 [...] * (ABNORMAL) PROTHROMBIN TIME WHOLE BLD POC (02/06/2025 9:19 AM EDT) Only the most recent of5 resultswithin the time period is included. Protime 54.6(H) 11.1 - 13.5 sec [facility] 02/06/2025 9:19 AM EDT 02/06/2025 9:22 AM EDT us Generic External Data Provider LAB BLOOD ORDERAB LES Final Result [facility] [address] [place] [phone] * (ABNORMAL) ~PT, ~INR - ANTI COAG CLINIC (02/06/2025 9:19 AM EDT) Only the most recent of5 resultswithin the time period is included. Prothrombin Time INR 4.6(H) 0.9 - 1.1 [facility] Comment:METER #: [id number] TERNATIONAL NORMALIZED RATIO (INR) REFERENCE RANGES Reference RangeFor patients not on anticoagulant therapy: 0.9 - 1.1INR ranges for oral anticoagulanttherapy:For prevention and treatment of venous thrombosis and pulmonary embolism: 2.0 - 3.0For acute myocardial infarction with aspirin therapy: 2.0 - 3.0For acute myocardial infarction without aspirin therapy: 3.0 - 4.0For patients with mechanical prosthetic heart valves: 2.5 - 3.5 02/06/2025 9:19 AM EDT 02/06/2025 9:22 AM EDT us Generic External Data Provider LAB BLOOD ORDERAB LES Final Result Performing Organization Address City/[facility] Co de Phone Number [facility] [address] [place] [phone] * (ABNORMAL) Lipid Panel with Reflex to Direct LDL (08/18/2023 9:08 AM EDT) Triglycerides 111 <150 mg/dL [facility] Comment:Desirable Triglyceri de: less than 150 mg/dLBorderline High Triglyceride 150-199 mg/dLHigh Triglyceride: 200-499 mg/dLVery High Triglyceride: greater than or equal to 5OO mg/dL Cholesterol 212(H) <200 mg/dL [facility] Comment:Desirable Cholestero l: less than 200 mg/dLBorderline High Cholesterol: 200-239 mg/dLHigh Cholesterol: greater than 239 mg/dL LDL Cholesterol Calculated 151(H) <100 mg/dL [facility] Comment:Desirable LDL: less than 100 mg/dLNear Optimal/Above Optimal LDL: 110- 129 mg/dLBorderline High LDL: 130-159 mg/dLHigh LDL: 160-189 mg/dLVery High LDL: greater than or equal to 190 mg/dL HDL Cholesterol 39(L) >40 mg/dL [facility] Comment:Desirable HDL: great er than 40 mg/dL Note: This HDL assay may give artificially low results in patients with liver disease. Blood 08/18/2023 9:08 AM EDT 08/18/2023 11:03 AM EDT us Malina Mckinney MD LAB BLOOD ORDERABLES Fin al Result Performing Organization Address City/[facility]/ZIP Co de Phone Number [facility] [address] [place] [phone] from Last 3 Months or Most Recently Relevant to Health Maintenance Insurance [facility] P[facility] Care Teams Broom Maker Relationship Specialty Start Date End Date Malina Mckinney MD [address] [facility] [place] [address] PCP - General Family Medicine 05/05/18
--- OUTSIDE RECORDS SUMMARY | 2025-02-06 09:37 | XMS_ITS | Encounter Summary ---
Author Organization [employer] Address [address] [facility] 7t [place] [address] Care Team Providers Care Rolled Glass Crosscutter Name Role Phone Malina Mckinney MD Primary Care Provider + Encounter Details Date Type Department Care Team (Latest Contact Info) Description 01/30/2025 Travel Social History Tobacco Use Types Packs/Day Years Used Date Smoking Tobacco: Never Passive Smoke Exposure: Never Smokeless Tobacco: Never Alcohol Use Standard [...] I do not want or need it 02/2 04/2025 Sex and Gender Information Value Date Recorded [...] on filedocumented in this encounter Care Teams Rolled Glass Crosscutter Relationship Specialty Start Date End Date Malina Mckinney MD [address] [place] [phone] PCP - General Family Medicine 05/05/18 documented as of this encounter
== END 2025-02-06 10:46 | disposition home or self-care (01) ==
LOC: HO.ACS 08:45
PROVIDERS: PCP Internal Medicine; Visit Provider Internal Medicine Medical Oncology
DX: Z79.01 Long term (current) use of anticoagulants (principal)

== ENCOUNTER → 2025-02-06 08:45 | Outpatient (BNVA) | payer BC, SELFPAY | PROVIDERS: PCP Internal Medicine; Visit Provider Internal Medicine Medical Oncology | DX: Z95.2 Presence of prosthetic heart valve (principal); Z51.81 Encounter for therapeutic drug level monitoring; Z79.01 Long term (current) use of anticoagulants | CPT/HCPCS: 85610; 99211 ==

== ENCOUNTER 2025-02-13 08:45 | Outpatient (AMB) | payer BC, SELFPAY ==
--- OUTSIDE RECORDS SUMMARY | 2025-02-13 09:20 | XMS_ITS | Encounter Summary ---
Author Organization [employer] Address 75 [facility] 7t [place] [address] Care Team Providers Care Manager Forensic Name Role Phone Mlaina Mckinney MD Primary Care Provider + Reason for Referral * Consultation (Routine) - Authorized Specialty Diagnoses / Procedures Referred By Contac t Referred To Contact Rheumatology Diagnoses Polyarthritis, inflammatory (CMS/HCC) Malina Mckinney MD [address] [place] [address] Phone: tel: fax: [facility] [address] [facility] [address] [place], [place] Phone: tel: fax: Referral ID Status Reason Start Date Expiration Date Visits Requested Visits Authorized [id number] Authorized Specialty Services Required 01/16/2025 01/16/2026 1 1 Encounter Details Date Type Department Care Team (Late st Contact Info) Description 01/16/2025 Orders Only [facility] [address] [place], [place] [phone] Malina Mckinney MD [address] [place] [address] Polyarthritis, inflammatory (CMS/HCC) (Primary Dx) [...] polyarthropathy documented in this encounter Care Teams Manager Forensic Relationship Specialty Start Date End Date Malina Mckinney MD [address] [place] [phone] PCP - General Family Medicine 05/05/18 documented as of this encounter
--- OUTSIDE RECORDS SUMMARY | 2025-02-13 09:20 | XMS_ITS | Encounter Summary ---
Author Organization [employer] Address 75 [facility] 7t [place] [address] Care Team Providers Care Printer'S Assistant Name Role Phone Malina Mckinney MD Primary Care Provider + Reason for Visit * Reason Onset Date Comments Medication Question 01/23/2025 Encounter Details Date Type Department Care Team ([facility] st Contact Info) Description 01/23/2025 Refill [facility] [address] [place], [place] [phone] Malina Mckinney MD [address] [place] [address] Social History Tobacco Use Types Packs/Day Years [...] from pt stating on his visit to [facility] (01/07) was prescribed Colchicine 0.6 MG twice a day but was only given 30 pills. He's asking if PCP can prescribe medication to complete treatment since [facility] told pt he should contact PCP. documented in this encounter Plan of Treatment Not on file documented as of this encounter Visit Diagnoses Not on filedocumented in this encounter Care Teams Printer'S Assistant Relationship Specialty Start Date End Date Malina Mckinney MD [address] [place] [phone] PCP - General Family Medicine 05/05/18 documented as of this encounter
--- OUTSIDE RECORDS SUMMARY | 2025-02-13 09:20 | XMS_ITS | Encounter Summary ---
Author Organization [employer] Address [address] [facility] 7t [place] [address] Care Team Providers Care Pacu Nurse Name Role Phone Malina Mckinney MD Primary Care Provider + Encounter Details Date Type Department Care Team ([facility] st Contact Info) Description 01/23/2025 Orders Only [...] EST) Protime 37.4(H) 11.1 - 13.5 sec [facility] 01/23/2025 9:30 AM EST 01/23/2025 9:31 AM EST us Generic External Data Provider LAB BLOOD ORDERAB LES Final Result Performing Organization Address City/State/[facility] Co de Phone Number [facility] [address] [place] [phone] * (ABNORMAL) ~PT, ~INR - ANTI COAG CLINIC (01/23/2025 9:30 AM EST) Prothrombin Time INR 3.1(H) 0.9 - 1.1 [facility] Comment:METER #: [id number] TERNATIONAL NORMALIZED RATIO (INR) REFERENCE RANGES Reference [...] ORDERAB LES Final Result Performing Organization Address City/State/[facility] Co de Phone Number [facility] [address] [place] [phone] documented in this encounter Visit Diagnoses Not on filedocumented in this encounter Care Teams Pacu Nurse Relationship Specialty Start Date End Date Malina Mckinney MD [address] [place] [phone] PCP - General Family Medicine 05/05/18 documented as of this encounter
--- OUTSIDE RECORDS SUMMARY | 2025-02-13 09:20 | XMS_ITS | Encounter Summary ---
Author Organization [employer] Address [address] [facility] 7t [place] [address] Care Team Providers Care Cuff Runner Name Role Phone Malina Mckinney MD Primary Care Provider + Reason for Visit * Reason Onset Date Comments Chart Prep 01/25/2025 Encounter Details Date Type Department Care Team ([facility] st Contact Info) Description 01/25/2025 Telephone [facility] [address] [place], [place] [phone] Malina Mckinney MD [address] [place] [address] Chart Prep Social History Tobacco Use Types [...] t he electric, gas, oil or water [employer] threatened to shut off services in your [...] on filedocumented in this encounter Care Teams Cuff Runner Relationship Specialty Start Date End Date Malina Mckinney MD [address] [place] [phone] PCP - General Family Medicine 05/05/18 documented as of this encounter
--- OUTSIDE RECORDS SUMMARY | 2025-02-13 09:20 | XMS_ITS | Encounter Summary ---
Author Organization [employer] Address [address] [facility] [address] 7t [place] [address] Care Team Providers Care Appeals Assistant Name Role Phone Malina Mckinney MD Primary Care Provider + Encounter Details Date Type Department Care Team (Late st Contact Info) Description 01/30/2025 9:30 AM EDT Office Visit [facility] [address] [place], [place] [phone] Joanne Grimaldo MD [address] [place], [place] [phone] Polyarthritis, inflammatory (CMS/HCC) (Primary Dx); Balanitis Social [...] old male who presents for HDF . [facility] (01/07/2025 - 01/10/2025) Patient presented with atraumatic [...] Refills, Soft Stop, 06/16/21 8:04:00 EDT, Tablet, [facility], Partial fill upon patient [...] Balanoposthitis documented in this encounter Care Teams Appeals Assistant Relationship Specialty Start Date End Date Malina Mckinney MD [address] [place] [phone] PCP - General Family Medicine 05/05/18 documented as of this encounter
--- OUTSIDE RECORDS SUMMARY | 2025-02-13 09:20 | XMS_ITS | Encounter Summary ---
Author Organization [employer] Address [address] [facility] 7t [place] [address] Care Team Providers Care Storage Management Architect Name Role Phone Malina Mckinney MD Primary [...] on filedocumented in this encounter Care Teams Storage Management Architect Relationship Specialty Start Date End Date Malina Mckinney MD [address] [place] [phone] PCP - General Family Medicine 05/05/18 documented as of this encounter
--- OUTSIDE RECORDS SUMMARY | 2025-02-13 09:20 | XMS_ITS | Encounter Summary ---
Author Organization [email or web address] Address 75 [facility] 7t [place] [address] Care Team Providers Care Spectroscopist Name Role Phone Malina Mckinney MD Primary Care Provider + Reason for Visit * Reason Onset Date Comments Referral 01/17/2025 Encounter Details Date Type Department Care Team ([facility] st Contact Info) Description 01/17/2025 Telephone [facility] [address] [place], [place] [phone] Malina Mckinney MD [address] [place] [address] Referral Social History Tobacco Use Types Packs/Day [...] was made to [facility], not [facility] Rheumatology as previously told. Explained to pt [...] office number provider per below message . [facility] Rheumatology are not excepting new patients at [...] on filedocumented in this encounter Care Teams Spectroscopist Relationship Specialty Start Date End Date Malina Mckinney MD [address] [place] [phone] PCP - General Family Medicine 05/05/18 documented as of this encounter
--- OUTSIDE RECORDS SUMMARY | 2025-02-13 09:21 | XMS_ITS | Encounter Summary ---
Author Organization [employer] Address [address] [facility] 7t [place] [address] Care Team Providers Care Crisis Manager Name Role Phone Malina Mckinney MD Primary Care Provider + Encounter Details Date Type Department Care Team (Late st Contact Info) Description 12/19/2023 Abstract [facility] [address] [place], [place] [phone] Thiago, Dalia [address] [place] [address] Social History Tobacco Use Types Packs/Day Years [...] on filedocumented in this encounter Care Teams Crisis Manager Relationship Specialty Start Date End Date Malina Mckinney MD [address] [place] [phone] PCP - General Family Medicine 05/05/18 documented as of this encounter
--- OUTSIDE RECORDS SUMMARY | 2025-02-13 09:21 | XMS_ITS | Encounter Summary ---
Author Organization [employer] Address 75 [facility] 7t [place] [address] Care Team Providers Care Tank Builder Supervisor Name Role Phone Malina Mckinney MD Primary Care Provider + Encounter Details Date Type Department Care Team ([facility] st Contact Info) Description 02/06/2025 Orders Only GENERIC EXTERNAL DATA [...] COAG CLINIC Routine 02/06/2025 9:19 AM EDT documented in this encounter Results * (ABNORMAL) PROTHROMBIN TIME WHOLE BLD POC (02/06/2025 9:19 AM EDT) Protime 54.6(H) 11.1 - 13.5 sec [facility] 02/06/2025 9:19 AM EDT 02/06/2025 9:22 AM EDT us Generic External Data Provider LAB BLOOD ORDERAB LES Final Result Performing Organization Address City/State/[facility] Co de Phone Number [facility] [address] [place] [phone] * (ABNORMAL) ~PT, ~INR - ANTI COAG CLINIC (02/06/2025 9:19 AM EDT) Prothrombin Time INR 4.6(H) 0.9 - 1.1 [facility] Comment:METER #: [id number] TERNATIONAL NORMALIZED RATIO (INR) REFERENCE RANGES Reference [...] LES Final Result Performing Organization Address City/State/[facility] Co de Phone Number [facility] [address] [place] [phone] documented in this encounter Visit Diagnoses Not on filedocumented in this encounter Care Teams Tank Builder Supervisor Relationship Specialty Start Date End Date Malina Mckinney MD [address] [place] [phone] PCP - General Family Medicine 05/05/18 documented as of this encounter
--- OUTSIDE RECORDS SUMMARY | 2025-02-13 09:21 | XMS_ITS | Encounter Summary ---
Author Organization [employer] Address [address] [facility] 7t [place] [address] Care Team Providers Care Women Nurse Name Role Phone Malina Mckinney MD Primary Care Provider + Encounter Details Date Type Department Care Team ([facility] st Contact Info) Description 01/16/2025 Orders Only [...] EST) Protime 41.1(H) 11.1 - 13.5 sec [facility] 01/16/2025 9:29 AM EST 01/16/2025 9:32 AM EST us Generic External Data Provider LAB BLOOD ORDERAB LES Final Result Performing Organization Address City/State/[facility] Co de Phone Number [facility] [address] [place] [address] [phone] * (ABNORMAL) ~PT, ~INR - ANTI COAG CLINIC (01/16/2025 9:29 AM EST) Prothrombin Time INR 3.4(H) 0.9 - 1.1 [facility] Comment:METER #: [id number] TERNATIONAL NORMALIZED RATIO (INR) REFERENCE RANGES Reference [...] ORDERAB LES Final Result Performing Organization Address City/State/[facility] Co de Phone Number [facility] [address] [place] [phone] documented in this encounter Visit Diagnoses Not on filedocumented in this encounter Care Teams Women Nurse Relationship Specialty Start Date End Date Malina Mckinney MD [address] [place] [phone] PCP - General Family Medicine 05/05/18 documented as of this encounter
--- OUTSIDE RECORDS SUMMARY | 2025-02-13 09:21 | XMS_ITS | Clinical Summary ---
Author Organization [employer] Address [address] [place] [address] 7t [place] [address] Care Team Providers Care Wax Ball Molder Name Role Phone Malina Mckinney MD Primary Care Provider + Allergies No known active allergies Medications metoprolol tartrate (Lopressor) 50 MG tablet Take 1 tablet by mouth every 12 (twelve) hours. 021 Active warfarin (Coumadin) 6 MG tablet Take [...] Refills, Soft Stop, 06/16/21 8:04:00 EDT, Tablet, [facility], Partial fill upon patient request if the prescription is for a sched... 021 2024 Discontinued(M ed list cleanup (will not trigger notification to Pharmacy)) colchicine 0.6 MG tablet Take 1 tablet (0.6 mg) by mouth 2 times daily for 15 days. 30 tablet 025 2024 warfarin (Coumadin) 4 MG tablet 4 mg [...] -He is on cumadin followed by the [facility]. INR goal is 2.5-3.5 -Recommend amoxicillin [...] -He is on cumadin followed by the [facility]. INR goal is 2.5-3.5 -Recommend amoxicillin [...] Data 01/30/2025 9:30 AM EDT Office Visit [address] [address] Joanne Grimaldo MD Polyarthritis, inflammatory (CMS/HCC) (Primary Dx); Chandananitis 01/30/2025 Travel 01/25/[address] [address] Malina Mckinney MD Chart Prep 01/23/[address] [address] Malina Mckinney MD 01/23/2025 Orders Only GENERIC EXTERNAL DATA DEPARTMENT Provider, Generic External Data 01/18/[address] [address] Malina Mckinney MD Nurse Triage 01/17/[address] [address] Malina Mckinney MD Referral 01/16/2025 Orders Only [address] [address] Malina Mckinney MD Polyarthritis, inflammatory (CMS/HCC) (Primary Dx) 01/16/2025 Patient Outreach [address] [address] Malina Mckinney MD Transition Of Care (Tcm) (HDF- scheduled and SDOH screening negative and Tobacco screening negative) 01/16/2025 Orders Only GENERIC EXTERNAL DATA DEPARTMENT Provider, Generic External Data 01/16/[address] [address] Malina Mckinney MD Hospital Follow-up 01/11/2025 Orders Only GENERIC EXTERNAL DATA DEPARTMENT Provider, Generic External Data 12/21/[address] [address] Malina Mckinney MD February11/22/2024 Orders Only GENERIC [...] included. Protime 54.6(H) 11.1 - 13.5 sec [facility] 02/06/2025 9:19 AM EDT 02/06/2025 9:22 AM EDT us Generic External Data Provider LAB BLOOD ORDERAB LES Final Result [facility] [address] [place] [phone] * (ABNORMAL) ~PT, ~INR - ANTI COAG CLINIC (02/06/2025 9:19 AM EDT) Only the most recent of5 resultswithin the time period is included. Prothrombin Time INR 4.6(H) 0.9 - 1.1 [facility] Comment:METER #: [id number] TERNATIONAL NORMALIZED RATIO (INR) REFERENCE RANGES Reference [...] ORDERAB LES Final Result Performing Organization Address [facility]/ZIP Co de Phone Number [facility] [address] [place] [phone] * (ABNORMAL) Lipid Panel with Reflex to Direct LDL (08/18/2023 9:08 AM EDT) Triglycerides 111 <150 mg/dL [facility] Comment:Desirable Triglyceri de: less than 150 mg/dLBorderline High Triglyceride 150-199 mg/dLHigh Triglyceride: 200-499 mg/dLVery High Triglyceride: greater than or equal to 5OO mg/dL Cholesterol 212(H) <200 mg/dL [facility] Comment:Desirable Cholestero l: less than 200 mg/dLBorderline High Cholesterol: 200-239 mg/dLHigh Cholesterol: greater than 239 mg/dL LDL Cholesterol Calculated 151(H) <100 mg/dL [facility] Comment:Desirable LDL: less than 100 mg/dLNear Optimal/Above Optimal LDL: 110- 129 mg/dLBorderline High LDL: 130-159 mg/dLHigh LDL: 160-189 mg/dLVery High LDL: greater than or equal to 190 mg/dL HDL Cholesterol 39(L) >40 mg/dL [facility] Comment:Desirable HDL: great er than 40 mg/dL Note: This HDL assay may give artificially low results in patients with liver disease. Blood 08/18/2023 9:08 AM EDT 08/18/2023 11:03 AM EDT us Malina Mckinney MD LAB BLOOD ORDERABLES Fin al Result Performing Organization Address City/[facility]/ZIP Co de Phone Number [facility] [address] [place] [phone] from Last 3 Months or Most Recently Relevant to Health Maintenance Insurance BCBS PPO [facility] Care Teams Wax Ball Molder Relationship Specialty Start Date End Date Malina Mckinney MD [address] [place] [address] [place] [address] PCP - General Family Medicine 05/05/18
--- OUTSIDE RECORDS SUMMARY | 2025-02-13 09:21 | XMS_ITS | Encounter Summary ---
Author Organization [employer] Address 75 [facility] 7t [place] [address] Care Team Providers Care Insurance Office Supervisor Name Role Phone Malina Mckinney MD Primary Care Provider + Reason for Visit * Reason Comments Transition Of Care (Tcm) HDF- scheduled and SDOH screening negative and Tobacco screening negative Encounter Details Date Type Department Care Team ([facility] st Contact Info) Description 01/16/2025 Patient Outreach [facility] [address] [place], [place] [phone] Malina Mckinney MD 230 [place], [place] [phone] Transition Of Care (Tcm) (HDF- scheduled and [...] Admission/Visit 01/07/25 Date of Discharge 01/10/25 Facility [facility] Diagnosis General medical Aortic valve [...] Wednesdays, and Walk-In Urgent Care Located in [facility]. Patient provided with after-hours line for [facility], , whichoffer night time triage service and option to transfer to hat cone inspector provider if needed. CC scanned discharge summary into patient's chart. Biggest concern for appointment at this time is requesting a systems software developer referral. Appropriate screenings completed in anticipation of appointment. documented in this encounter Plan of Treatment Not on file documented as of this encounter Visit Diagnoses Not on filedocumented in this encounter Care Teams Insurance Office Supervisor Relationship Specialty Start Date End Date Malina Mckinney MD [address] [place] [phone] PCP - General Family Medicine 05/05/18 documented as of this encounter
--- OUTSIDE RECORDS SUMMARY | 2025-02-13 09:21 | XMS_ITS | Encounter Summary ---
Author Organization [employer] Address 75 [facility] 7t [place] [address] Care Team Providers Care Naval Aircrewman Helicopter Name Role Phone Malina Mckinney MD Primary Care Provider + Reason for Visit * Reason Onset Date Comments Hospital Follow-up 01/16/2025 Encounter Details Date Type Department Care Team ([facility] st Contact Info) Description 01/16/2025 Telephone [facility] 230 [place], [place] [phone] Malina Mckinney MD 230 [place], [place] [phone] Hospital Follow-up Social History Tobacco Use Types [...] from pt requesting a HDF appt. Hospital: [facility] Date of admission: 01/07 Discharge date: 01/10 Diagnosed: right ankle pain, right wrist pain *Send message to [place] Clinical Care Coordinators [phone] montenegrin documented in this encounter Plan of Treatment Not on file documented as of this encounter Visit Diagnoses Not on filedocumented in this encounter Care Teams Naval Aircrewman Helicopter Relationship Specialty Start Date End Date Malina Mckinney MD [address] [place] [phone] PCP - General Family Medicine 05/05/18 documented as of this encounter
--- OUTSIDE RECORDS SUMMARY | 2025-02-13 09:21 | XMS_ITS | Encounter Summary ---
Author Organization [employer] Address 75 [facility] 7t [place] [address] Care Team Providers Care Oracle Financials Developer Name Role Phone Malina Mckinney MD Primary Care Provider + Reason for Visit * Reason Onset Date Comments Nurse Triage 01/18/2025 Encounter Details Date Type Department Care Team ([facility] st Contact Info) Description 01/18/2025 Telephone [facility] 230 [place], [place] [phone] Malina Mckinney MD 230 [place] [address] Nurse Triage Social History Tobacco Use Types [...] t he electric, gas, oil or water 139shop threatened to shut off services in your [...] RN - 01/18/2025 12:51 PM EST No yacht rigger needed as 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 Call returned to Jamie Valdes to triage below. Reports having fever and body aches x 1 day. No cough, congestion, RIDER or ST. Denies any sick contacts. Pt has not home tested for COVID-19. Pt had recent admission to [facility] 01/07-01/10 for General medical Aortic valve replaced, [...] verbalized understanding. Given contact for [facility] [place] as resource. Protocol Used: Muscle Aches and [...] caller accepted this outcome. Contact pt at [phone] documented in this encounter Plan of Treatment Not on file documented as of this encounter Visit Diagnoses Not on filedocumented in this encounter Care Teams Oracle Financials Developer Relationship Specialty Start Date End Date Malina Mckinney MD [address] [place] [phone] PCP - General Family Medicine 05/05/18 documented as of this encounter
--- OUTSIDE RECORDS SUMMARY | 2025-02-13 09:21 | XMS_ITS | Encounter Summary ---
Author Organization [employer] Address 75 [facility] 7t [place] [address] Care Team Providers Care Operating Room Technician Name Role Phone Malina Mckinney MD Primary Care Provider + Reason for Visit * Reason Onset Date Comments INR results 12/07/2023 Encounter Details Date Type Department Care Team ([facility] st Contact Info) Description 12/07/2023 Telephone [facility] CHC ADULT DENTAL [address] [place] [address] America Chirinos, DDS 230 [place] [address] INR results Social History Tobacco Use Types [...] - 12/07/2023 3:53 PM EST Ramya from [facility] is faxing over INR results for patient coming intomorrow 12/08/2023 documented in this encounter Plan of Treatment Not on file documented as of this encounter Visit Diagnoses Not on filedocumented in this encounter Care Teams Operating Room Technician Relationship Specialty Start Date End Date Malina Mckinney MD [address] [place] [phone] PCP - General Family Medicine 05/05/18 documented as of this encounter
--- OUTSIDE RECORDS SUMMARY | 2025-02-13 09:21 | XMS_ITS | Encounter Summary ---
Author Organization [employer] Address [address] [place] [address] 7 [place] [address] Care Team Providers Care Residential Lawn Specialist Name Role Phone Malina Mckinney MD Primary Care Provider + Reason for Referral * Imaging (Urgent) - Closed Specialty Diagnoses / Procedures Referred By Contac t Referred To Contact Cardiology Diagnoses Edema of right lower extremity Procedures Vascular US lower extremity venous duplex right Brett Kwon MD [address] [place] [address] Phone: tel: fax: [facility] Referral ID Status Reason Start Date Expiration Date V isits Requested Visits Authorized [id number] Closed Perform Procedure 05/01/2024 05/01/2025 1 1 Encounter Details Date Type Department Care Team (Late st Contact Info) Description 05/01/2024 Orders Only [facility] CHC MED & PEDS [address] [place] [address] Brett Kwon MD [address] [place] [address] Edema of right lower extremity (Primary Dx) [...] EDT Narrative 05/02/2024 2:06 PM EDT ? [facility] ?[address] ?[place] [address] ? Ultrasound Report ? Signed ? Patient: Keisha,Darwin ?MR#: [id number] ? : 1980 ?Acct:[id number] ? Age/Sex: 43 / M ?ADM Date: 06/12/24 ? Loc: HO.US ? Attending Dr: Brett Kwon MD ? Ordering Physician: Brett Kwon MD ?? Date of Service: 05/02/24 ?? Procedure(s): US venous duplex LE RT ?? Accession Number(s): [id number] ? cc: Brett Kwon MD; Malina Mckinney [...] 1403 ? DD/ 1104 ? TD/TT: ? Agency Director: SS ? Procedure Note Peewee Malcolm - 05/02/[address] [address] Ultrasound Report Signed Patient: Jamie Valdes R#: [id number] : 1980Acct:[id number] Age/Sex: 43 / MADM Date: 05/02/24 Loc: HO.US Attending Dr: Brett Kwon MD Ordering Physician: Brett Kwon MD Date of Service: 05/02/24 Procedure(s): US venous duplex LE RT Accession Number(s): [id number] cc: Brett Kwon MD; Malina Mckinney MD [...] in OV> 05/02/24 1403 DD/ 1104 TD/TT: Agency Director: SS us Brett Kwon MD IMG US PROCEDURES Final Res ult documented in this encounter Visit Diagnoses Diagnosis Edema of right lower extremity- Primary documented in this encounter Care Teams Residential Lawn Specialist Relationship Specialty Start Date End Date Malina Mckinney MD [address] [place] [phone] PCP - General Family Medicine 05/05/18 documented as of this encounter
[2025-02-13 09:31] LABS: Prothrombin Time Whole Bld POC 39.4 sec (11.1-13.5); ~PT, ~INR - Anti Coag Clinic 3.3 (0.9-1.1)
--- NOTE | 2025-02-13 09:37 | MHC.OFFVISCO ---
Intake Intake Visit Reasons: Anticoagulation Allergies No Known Allergies Allergy (Verified 02/13/25 09:21) Medication List - Last Reconciled 02/13/25 by Aislinn Lopez RN chlorhexidine gluconate 0.12% PO metoprolol tartrate 50 mg PO BID warfarin 4 mg See Protocol PO DAILY Nursing Note NO CP,SOB,DIET/MED CHANGES,FALLS OR SX OF BLEEDING. PT. ALSO STATES THAT HE IS FEELING BETTER RE GOUT. PT.HAS RHEUM. APPT.SOON. CONTINUE PRESENT DOSE AND FOLLOW-UP IN 2 WEEKS. GOOD UNDERSTANDING OF DOSING INSTR. Anti-Coag Initial Assessment Social Hx Patient Tobacco Use Status: Never used Tobacco alcohol intake: current Alcohol intake frequency: a few times a week Cardiovascular Hx: Other Lung Disease HX: Other GI Hx: Other Cancer HX: No Psych. 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
== END 2025-02-13 09:42 | disposition home or self-care (01) ==
LOC: HO.ACS 08:46
PROVIDERS: PCP Internal Medicine; Visit Provider Internal Medicine
DX: Z79.01 Long term (current) use of anticoagulants (principal)

== ENCOUNTER → 2025-02-13 08:45 | Outpatient (BNVA) | payer BC, SELFPAY | PROVIDERS: PCP Internal Medicine; Visit Provider Internal Medicine | DX: Z95.2 Presence of prosthetic heart valve (principal); Z79.01 Long term (current) use of anticoagulants; Z51.81 Encounter for therapeutic drug level monitoring | CPT/HCPCS: 85610; 99211 ==

== ENCOUNTER 2025-02-27 09:03 | Outpatient (AMB) | payer BC, SELFPAY ==
--- NOTE | 2025-02-27 09:18 | MHC.OFFVISCO ---
Intake Intake Visit Reasons: Anticoagulation Allergies No Known Allergies Allergy (Verified 02/27/25 09:09) Medication List - Last Reconciled 02/27/25 by Aislinn Lopez RN chlorhexidine gluconate 0.12% PO metoprolol tartrate 50 mg PO BID warfarin 4 mg See Protocol PO DAILY Nursing Note NO CP,SOB,DIET/MED CHANGES,FALLS OR SX OF BLEEDING HAS HAD A BIT MORE BEER THIS WEEK. GOUT PAIN HAS SUBSIDED. HOLD WARFARIN TODAY THEN RESUME USUAL DOSE AND FOLLOW-UP IN 2 WEEKS. GOOD UNDERTSTANDING OF DOSING INSTR. Anti-Coag Initial Assessment Social Hx Patient Tobacco Use Status: Never used Tobacco alcohol intake: current Alcohol intake frequency: a few times a week Cardiovascular Hx: Other Lung Disease HX: Other GI Hx: Other Cancer HX: No Psych. Illness/Depression: No Coding Level of Care Code Est Patient Level 1 Diagnoses Current use of anticoagulant therapy Z79.01 Results AMB INR Fingerstick AMB INR Fingerstick 4.4 Last Edit by Aislinn Lopez RN on 02/27/25 09:16 Assessment & Plan Assessment & Plan (1) Current use of anticoagulant therapy: Code(s): Z79.01 - group home (current) use of anticoagulants Category: Medical
--- OUTSIDE RECORDS SUMMARY | 2025-02-27 09:34 | XMS_ITS | Encounter Summary ---
Author Organization [employer] Address 75 [facility] 7t [place] [address] Care Team Providers Care Coil Winder Strap Name Role Phone Malina Mckinney MD Primary Care Provider + Reason for Visit * Reason Onset Date Comments INR results 12/07/2023 Encounter Details Date Type Department Care Team ([facility] st Contact Info) Description 12/07/2023 Telephone [facility] CH[facility] ADULT DENTAL [address] [place] [address] America Chirinos, DDS 230 [place] [address] INR results Social History Tobacco Use Types [...] - 12/07/2023 3:53 PM EST Ramya from [facility] is faxing over INR results for patient coming intomorrow 12/08/2023 documented in this encounter Plan of Treatment Not on file documented as of this encounter Visit Diagnoses Not on filedocumented in this encounter Care Teams Coil Winder Strap Relationship Specialty Start Date End Date Malina Mckinney MD [address] [place] [phone] PCP - General Family Medicine 05/05/18 documented as of this encounter
--- OUTSIDE RECORDS SUMMARY | 2025-02-27 09:34 | XMS_ITS | Clinical Summary ---
Author Organization [employer] Address [address] [place] [address] 7t [place] [address] Care Team Providers Care Line Builder Name Role Phone Malina Mciknney MD Primary Care Provider + Allergies No [...] Refills, Soft Stop, 06/16/21 8:04:00 EDT, Tablet, [facility], Partial fill upon patient [...] -He is on cumadin followed by the [facility]. INR goal is 2.5-3.5 -Recommend [...] -He is on cumadin followed by the [facility]. INR goal is 2.5-3.5 -Recommend [...] Encounters Date Type Department Care Team Description 02/13/2025 Orders Only GENERIC EXTERNAL DATA DEPARTMENT Provider, Generic External Data 02/06/2025 Orders Only GENERIC EXTERNAL DATA DEPARTMENT Provider, Generic External Data 01/30/2025 9:30 AM EDT Office Visit [address] [address] Joanne Grimaldo MD Polyarthritis, inflammatory (CMS/HCC) (Primary Dx); Balanitis 01/30/2025 Travel 01/25/[address] [address] Malina Mckinney MD Chart Prep 01/23/[address] [address] Malina Mckinney MD 01/23/2025 Orders Only GENERIC EXTERNAL DATA DEPARTMENT Provider, Generic External Data 01/18/[address] [address] Malina Mckinney MD Nurse Triage 01/17/[address] [address] Malina Mckinney MD Referral 01/16/2025 Orders Only [address] [address] Malina Mckinney MD Polyarthritis, inflammatory (CMS/HCC) (Primary Dx) 01/16/2025 Patient Outreach [address] [address] Malina Mckinney MD Transition Of Care (Tcm) (HDF- scheduled and SDOH screening negative and Tobacco screening negative) 01/16/2025 Orders Only GENERIC EXTERNAL DATA DEPARTMENT Provider, Generic External Data 01/16/[address] [address] Malina Mckinney MD Hospital Follow-up 01/11/2025 Orders Only GENERIC EXTERNAL DATA DEPARTMENT Provider, Generic External Data 12/21/2024 Telephone [facility] [address] [place] [address] Malina Mckinney MD February recall from Last 3 Months Immunizations Name Administration [...] Comments PROTHROMBIN TIME WHOLE BLD POC Routine 02/13/2025 9:24 AM EDT ~PT, ~INR - ANTI COAG CLINIC Routine 02/13/2025 9:24 AM EDT PROTHROMBIN TIME WHOLE BLD POC Routine 02/06/2025 [...] COAG CLINIC Routine 01/11/2025 3:38 PM EST PROPHYLAXIS - ADULT Routine 12/08/2023 11:00 [...] * (ABNORMAL) PROTHROMBIN TIME WHOLE BLD POC (02/13/2025 9:24 AM EDT) Only the most recent of5 resultswithin the time period is included. Protime 39.4(H) 11.1 - 13.5 sec [facility] 02/13/2025 9:24 AM EDT 02/13/2025 9:30 AM EDT us Generic External Data Provider LAB BLOOD ORDERAB LES Final Result [facility] [address] [place] [phone] * (ABNORMAL) ~PT, ~INR - ANTI COAG CLINIC (02/13/2025 9:24 AM EDT) Only the most recent of5 resultswithin the time period is included. Prothrombin Time INR 3.3(H) 0.9 - 1.1 [facility] Comment:METER #: [id number] TERNATIONAL NORMALIZED RATIO (INR) REFERENCE RANGES Reference RangeFor patients not on anticoagulant therapy: 0.9 - 1.1INR ranges for oral anticoagulanttherapy:For prevention and treatment of venous thrombosis and pulmonary embolism: 2.0 - 3.0For acute myocardial infarction with aspirin therapy: 2.0 - 3.0For acute myocardial infarction without aspirin therapy: 3.0 - 4.0For patients with mechanical prosthetic heart valves: 2.5 - 3.5 02/13/2025 9:24 AM EDT 02/13/2025 9:30 AM EDT us Generic External Data Provider LAB BLOOD ORDERAB LES Final Result Performing Organization Address [facility] Co de Phone Number [facility] [address] [place] [phone] * (ABNORMAL) Lipid Panel with Reflex to Direct LDL (08/18/2023 9:08 AM EDT) Triglycerides 111 <150 mg/dL [facility] Comment:Desirable Triglyceri de: less than 150 mg/dLBorderline High Triglyceride 150-199 mg/dLHigh Triglyceride: 200-499 mg/dLVery High Triglyceride: greater than or equal to 5OO mg/dL Cholesterol 212(H) <200 mg/dL [facility] Comment:Desirable Cholestero l: less than 200 mg/dLBorderline High Cholesterol: 200-239 mg/dLHigh Cholesterol: greater than 239 mg/dL LDL Cholesterol Calculated 151(H) <100 mg/dL [facility] Comment:Desirable LDL: less than 100 mg/dLNear Optimal/Above Optimal LDL: 110- 129 mg/dLBorderline High LDL: 130-159 mg/dLHigh LDL: 160-189 mg/dLVery High LDL: greater than or equal to 190 mg/dL HDL Cholesterol 39(L) >40 mg/dL [facility] Comment:Desirable HDL: great er than 40 mg/dL Note: This HDL assay may give artificially low results in patients with liver disease. Blood 08/18/2023 9:08 AM EDT 08/18/2023 11:03 AM EDT us Malina Mckinney MD LAB BLOOD ORDERABLES Fin al Result Performing Organization Address City/[facility]/ZIP Co de Phone Number [facility] [address] [place] [phone] from Last 3 Months or Most Recently Relevant to Health Maintenance Insurance BCBS PPO [facility] Care Teams Line Builder Relationship Specialty Start Date End Date Malina Mckinney MD [address] [place] [address] PCP - General Family Medicine 05/05/18
--- OUTSIDE RECORDS SUMMARY | 2025-02-27 09:34 | XMS_ITS | Encounter Summary ---
Author Organization [employer] Address 75 [facility] 7t [place] [address] Care Team Providers Care Behavioral Modification Assistant Name Role Phone Malina Mckinney MD Primary Care Provider + Reason for Visit * Reason Onset Date Comments Hospital Follow-up 01/16/2025 Encounter Details Date Type Department Care Team ([facility] st Contact Info) Description 01/16/2025 Telephone [facility] MEDICINE 230 [place], [place] [phone] Malina Mckinney MD 230 [place], [place] [phone] Hospital Follow-up Social History Tobacco Use Types [...] from pt requesting a HDF appt. Hospital: [facility] Date of admission: 01/07 Discharge date: 01/10 Diagnosed: right ankle pain, right wrist pain *Send message to [place] Clinical Care Coordinators [phone] swedish documented in this encounter Plan of Treatment Not on file documented as of this encounter Visit Diagnoses Not on filedocumented in this encounter Care Teams Behavioral Modification Assistant Relationship Specialty Start Date End Date Malina Mckinney MD [address] [place] [phone] PCP - General Family Medicine 05/05/18 documented as of this encounter
--- OUTSIDE RECORDS SUMMARY | 2025-02-27 09:34 | XMS_ITS | Encounter Summary ---
Author Organization [employer] Address 75 [facility] 7t [place] [address] Care Team Providers Care Wire Walker Name Role Phone Malina Mckinney MD Primary Care Provider + Encounter Details Date Type Department Care Team (Late st Contact Info) Description 12/19/2023 Abstract [facility] ADULT DENTAL [address] [place], [place] [phone] Thiago, Dalia [address] [place] [address] Social History Tobacco Use Types Packs/Day Years [...] on filedocumented in this encounter Care Teams Wire Walker Relationship Specialty Start Date End Date Malina Mckinney MD [address] [place] [address] PCP - General Family Medicine 05/05/18 documented as of this encounter
--- OUTSIDE RECORDS SUMMARY | 2025-02-27 09:34 | XMS_ITS | Encounter Summary ---
Author Organization [employer] Address [address] [place] [address] 7 [place] [address] Care Team Providers Care Housing Case Manager Name Role Phone Malina Mckinney MD Primary Care Provider + Reason for Referral * Imaging (Urgent) - Closed Specialty Diagnoses / Procedures Referred By Contac t Referred To Contact Cardiology Diagnoses Edema of right lower extremity Procedures Vascular US lower extremity venous duplex right Brett Kwon MD [address] [place] [address] Phone: tel: fax: [facility] Referral ID Status Reason Start Date Expiration Date V isits Requested Visits Authorized [id number] Closed Perform Procedure 05/01/2024 05/01/2025 1 1 Encounter Details Date Type Department Care Team (Late st Contact Info) Description 05/01/2024 Orders Only [facility] MED & PEDS [address] [place] [address] Brtet Kwon MD [address] [place] [address] Edema of right lower extremity (Primary Dx) [...] EDT Narrative 05/02/2024 2:06 PM EDT ? [facility] ?[address] ?[place] [address] ? Ultrasound Report ? Signed ? Patient: Keisha,Darwin ?MR#: [id number] ?? [id number] ? : 1980 ?Acct:[id number] ? Age/Sex: 43 / M ?ADM Date: 06/12/24 ? Loc: HO.US ? Attending Dr: Brett Kwon MD ? Ordering Physician: Brett Kwon MD ?? Date of Service: 05/02/24 ?? Procedure(s): US venous duplex LE RT ?? Accession Number(s): [id number] ? cc: Brett Kwon MD; Malina Mckinney [...] 1403 ? DD/ 1104 ? TD/TT: ? Ream Cutter: SS ? Procedure Note Peewee Malcolm - 05/02/[address] [address] Ultrasound Report Signed Patient: Jamie Valdes R#: [id number] : 1980Acct:[id number] Age/Sex: 43 / MADM Date: 05/02/24 Loc: HO.US Attending Dr: Brett Kwon MD Ordering Physician: Brett Kwon MD Date of Service: 05/02/24 Procedure(s): US venous duplex LE RT Accession Number(s): [id number] cc: Brett Kwon MD; Malina Mckinney MD [...] in OV> 05/02/24 1403 DD/ 1104 TD/TT: Ream Cutter: SS us Brett Kwon MD IMG US PROCEDURES Final Res ult documented in this encounter Visit Diagnoses Diagnosis Edema of right lower extremity- Primary documented in this encounter Care Teams Housing Case Manager Relationship Specialty Start Date End Date Malina Mckinney MD [address] [place] [phone] PCP - General Family Medicine 05/05/18 documented as of this encounter
[2025-02-27 11:35] LABS: ~PT, ~INR - Anti Coag Clinic 4.4 (0.9-1.1)
== END 2025-02-27 09:20 | disposition home or self-care (01) ==
LOC: HO.ACS 09:03
PROVIDERS: PCP Internal Medicine; Visit Provider Internal Medicine Medical Oncology
DX: Z79.01 Long term (current) use of anticoagulants (principal)

== ENCOUNTER → 2025-02-27 09:03 | Outpatient (BNVA) | payer BC, SELFPAY | PROVIDERS: PCP Internal Medicine; Visit Provider Internal Medicine Medical Oncology | DX: Z95.2 Presence of prosthetic heart valve (principal); Z79.01 Long term (current) use of anticoagulants; Z51.81 Encounter for therapeutic drug level monitoring | CPT/HCPCS: 85610; 99211 ==

== ENCOUNTER 2025-03-15 09:19 | Outpatient (AMB) | payer BC, SELFPAY ==
--- OUTSIDE RECORDS SUMMARY | 2025-03-15 09:30 | XMS_ITS | Clinical Summary ---
Author Organization [employer] Address [address] [place] [address] 7t [place] [address] Care Team Providers Care Patient Financial Services Specialist Name Role Phone Malina Mckinney MD Primary Care Provider + Allergies No known active allergies Medications metoprolol tartrate (Lopressor) 50 MG tablet Take 1 tablet by mouth every 12 (twelve) hours. 1 Active warfarin (Coumadin) 6 MG tablet Take 6 mg by mouth. Take 6 mg by mouth on Tuesday, Tuesday, , and Tuesday Active warfarin (Coumadin) 4 MG tablet Take 4 mg by mouth on Tuesday, Tuesday, and Tuesday 2 Active clotrimazole-be tamethasone (Lotrisone) creamIndication s:Balanitis Apply topically 2 times daily for 28 days. 15 g 5 02/28/20 25 Active Problems Problem Noted Date Diagnosed Date [...] -He is on cumadin [facility]. INR goal is 2.5-3.5 -Recommend amoxicillin [...] -He is on cumadin followed by the [facility]. INR goal is 2.5-3.5 -Recommend amoxicillin [...] Encounters Date Type Department Care Team Description 02/27/2025 Orders Only GENERIC EXTERNAL DATA DEPARTMENT Provider, Generic External Data 02/13/2025 Orders Only GENERIC EXTERNAL DATA DEPARTMENT Provider, Generic External Data 02/06/2025 Orders Only GENERIC EXTERNAL DATA DEPARTMENT Provider, Generic External Data 01/30/2025 9:30 AM EDT Office Visit [facility] [address] [place] [address] Joanne Grimaldo MD Polyarthritis, inflammatory ([facility]) (Primary Dx); Balanitis 01/30/2025 Travel 01/25/[address] [address] Malina Mckinney MD Chart Prep 01/23/[address] [address] Malina Mckinney MD 01/23/2025 Orders Only GENERIC EXTERNAL DATA DEPARTMENT Provider, Generic External Data 01/18/[address] [address] Malina Mckinney MD Nurse Triage 01/17/[address] [address] Malina Mckinney MD Referral 01/16/2025 Orders Only [address] [address] Malina Mckinney MD Polyarthritis, inflammatory (CMS/HCC) (Primary Dx) 01/16/2025 Patient Outreach [address] [phone] Malina Mckinney MD Transition Of Care (Tcm) (HDF- scheduled and SDOH screening negative and Tobacco screening negative) 01/16/2025 Orders Only GENERIC EXTERNAL DATA DEPARTMENT Provider, Generic External Data 01/16/[address] [address] Malina Mckinney MD Hospital Follow-up 01/11/2025 Orders Only GENERIC EXTERNAL DATA DEPARTMENT Provider, Generic External Data 12/21/[address] [phone] Malina Mckinney MD February recall from Last [...] 09/29/2024 09/28/2023 Depression Screening 05/29/2025 05/29/2024, 05/29/20 SDOH Screening 01/16/2026 01/16/2025 Tobacco Screening 01/30/2026 [...] Comments PROTHROMBIN TIME WHOLE BLD POC Routine 02/27/2025 9:11 AM EDT ~PT, ~INR - ANTI COAG CLINIC Routine 02/27/2025 9:11 AM EDT PROTHROMBIN TIME WHOLE BLD POC Routine 02/13/2025 [...] * (ABNORMAL) PROTHROMBIN TIME WHOLE BLD POC (02/27/2025 9:11 AM EDT) Only the most recent of6 resultswithin the time period is included. Protime 53.0(H) 11.1 - 13.5 sec [facility] 02/27/2025 9:11 AM EDT 02/27/2025 11:34 AM EDT Generic External Data Provider LAB BLOOD ORDERAB LES Final Result Performing Organization Address City/[facility]/ZIP Co de Phone Number [facility] [address] [place] [address] [phone] * (ABNORMAL) ~PT, ~INR - ANTI COAG CLINIC (02/27/2025 9:11 AM EDT) Only the most recent of6 resultswithin the time period is included. Prothrombin Time INR 4.4(H) 0.9 - 1.1 [facility] Comment:METER #: [id number] TERNATIONAL NORMALIZED RATIO (INR) REFERENCE RANGES Reference RangeFor patients not on anticoagulant therapy: 0.9 - 1.1INR ranges for oral anticoagulanttherapy:For prevention and treatment of venous thrombosis and pulmonary embolism: 2.0 - 3.0For acute myocardial infarction with aspirin therapy: 2.0 - 3.0For acute myocardial infarction without aspirin therapy: 3.0 - 4.0For patients with mechanical prosthetic heart valves: 2.5 - 3.5 02/27/2025 9:11 AM EDT 02/27/2025 11:34 AM EDT Generic External Data Provider LAB BLOOD ORDERAB LES Final Result Performing Organization Address City/[facility]/ZIP Co de Phone Number [facility] [address] [place] [address] [phone] * (ABNORMAL) Lipid Panel with Reflex to Direct LDL (08/18/2023 9:08 AM EDT) Triglycerides 111 <150 mg/dL [facility] Comment:Desirable Triglyceri de: less than 150 mg/dLBorderline High Triglyceride 150-199 mg/dLHigh Triglyceride: 200-499 mg/dLVery High Triglyceride: greater than or equal to 5OO mg/dL Cholesterol 212(H) <200 mg/dL [facility] Comment:Desirable Cholestero l: less than 200 mg/dLBorderline High Cholesterol: 200-239 mg/dLHigh Cholesterol: greater than 239 mg/dL LDL Cholesterol Calculated 151(H) <100 mg/dL [facility] Comment:Desirable LDL: less than 100 mg/dLNear Optimal/Above Optimal LDL: 110- 129 mg/dLBorderline High LDL: 130-159 mg/dLHigh LDL: 160-189 mg/dLVery High LDL: greater than or equal to 190 mg/dL HDL Cholesterol 39(L) >40 mg/dL [facility] Comment:Desirable HDL: great er than 40 mg/dL Note: This HDL assay may give artificially low results in patients with liver disease. Blood 08/18/2023 9:08 AM EDT 08/18/2023 11:03 AM EDT us Malina Mckinney MD LAB BLOOD ORDERABLES Fin al Result [facility] [address] [place] [phone] from Last 3 Months or Most Recently Relevant to Health Maintenance Insurance [facility] PPO [facility] Care Teams Patient Financial Services Specialist Relationship Specialty Start Date End Date Malina Mckinney MD [address] [place] [phone] PCP - General Family Medicine 05/05/18
--- OUTSIDE RECORDS SUMMARY | 2025-03-15 09:30 | XMS_ITS | Encounter Summary ---
Author Organization [employer] Address [address] [facility] 7t [place] [address] Care Team Providers Care Volunteer Services Director Name Role Phone Malina Mckinney MD Primary Care Provider + Encounter Details Date Type Department Care Team (Late st Contact Info) Description 12/19/2023 Abstract [facility] [address] [place], [place] [phone] Thiago, Dalia [address] [place] [address] Social History Tobacco Use Types Packs/Day Years [...] on filedocumented in this encounter Care Teams Volunteer Services Director Relationship Specialty Start Date End Date Malina Mckinney MD [address] [place] [phone] PCP - General Family Medicine 05/05/18 documented as of this encounter
--- OUTSIDE RECORDS SUMMARY | 2025-03-15 09:30 | XMS_ITS | Encounter Summary ---
Author Organization [employer] Address [address] [place] [address] 7 [place] [address] Care Team Providers Care Thermodynamics Teacher Name Role Phone Malina Mckinney MD Primary Care Provider + Reason for Referral * Imaging (Urgent) - Closed Specialty Diagnoses / Procedures Referred By Contac t Referred To Contact Cardiology Diagnoses Edema of right lower extremity Procedures Vascular US lower extremity venous duplex right Brett Kwon MD [address] [place] [address] Phone: tel: fax: [facility] Referral ID Status Reason Start Date Expiration Date V isits Requested Visits Authorized [id number] Closed Perform Procedure 05/01/2024 05/01/2025 1 1 Encounter Details Date Type Department Care Team (Late st Contact Info) Description 05/01/2024 Orders Only [facility] MED & PEDS [address] [place] [address] Brett Kwon MD [address] [place] [address] Edema of right lower extremity (Primary Dx) [...] EDT Narrative 05/02/2024 2:06 PM EDT ? [facility] ?[address] ?[place] [address] ? Ultrasound Report ? Signed ? Patient: Keisha,Darwin ?MR#: [id number] ?? [id number] ? : 1980 ?Acct:[id number] ? Age/Sex: 43 / M ?ADM Date: 06/12/24 ? Loc: HO.US ? Attending Dr: Brett Kwon MD ? Ordering Physician: Brett Kwon MD ?? Date of Service: 05/02/24 ?? Procedure(s): US venous duplex LE RT ?? Accession Number(s): [id number] ? cc: Brett Kwon MD; Malina Mckinney [...] 1403 ? DD/ 1104 ? TD/TT: ? Jig Builder Helper: SS ? Procedure Note Peewee Malcolm - 05/02/[address] [address] Ultrasound Report Signed Patient: Jamie Valdes R#: [id number] : 1980Acct:[id number] Age/Sex: 43 / MADM Date: 05/02/24 Loc: HO.US Attending Dr: Brett Kwon MD Ordering Physician: Brett Kwon MD Date of Service: 05/02/24 Procedure(s): US venous duplex LE RT Accession Number(s): [id number] cc: Brett Kwon MD; Malina Mckinney MD [...] in OV> 05/02/24 1403 DD/ 1104 TD/TT: Jig Builder Helper: SS us Brett Kwon MD IMG US PROCEDURES Final Res ult documented in this encounter Visit Diagnoses Diagnosis Edema of right lower extremity- Primary documented in this encounter Care Teams Thermodynamics Teacher Relationship Specialty Start Date End Date Malina Mckinney MD [address] [place] [address] PCP - General Family Medicine 05/05/18 documented as of this encounter
--- OUTSIDE RECORDS SUMMARY | 2025-03-15 09:30 | XMS_ITS | Encounter Summary ---
Author Organization [employer] Address 75 [facility] 7t [place] [address] Care Team Providers Care Hammerer Name Role Phone Malina Mckinney MD Primary Care Provider + Reason for Visit * Reason Onset Date Comments INR results 12/07/2023 Encounter Details Date Type Department Care Team ([facility] st Contact Info) Description 12/07/[address] [facility] ADULT DENTAL [address] [place] [address] America Chirinos, DDS [address] [place] [address] INR results Social History Tobacco Use Types [...] - 12/07/2023 3:53 PM EST Ramya from [facility] is faxing over INR results for patient coming intomorrow 12/08/2023 documented in this encounter Plan of Treatment Not on file documented as of this encounter Visit Diagnoses Not on filedocumented in this encounter Care Teams Hammerer Relationship Specialty Start Date End Date Malina Mckinney MD [address] [place] [phone] PCP - General Family Medicine 05/05/18 documented as of this encounter
--- OUTSIDE RECORDS SUMMARY | 2025-03-15 09:30 | XMS_ITS | Encounter Summary ---
Author Organization [employer] Address 75 [facility] 7t [place] [address] Care Team Providers Care Irrigation Equipment Mechanic Name Role Phone Malina Mckinney MD Primary Care Provider + Reason for Visit * Reason Onset Date Comments Hospital Follow-up 01/16/2025 Encounter Details Date Type Department Care Team ([facility] st Contact Info) Description 01/16/2025 Telephone [facility] MED[facility]INE 230 [place], [place] [phone] Malina Mckinney MD 230 [place], [place] [phone] Hospital Follow-up Social History Tobacco Use Types [...] from pt requesting a HDF appt. Hospital: [facility] Date of admission: 01/07 Discharge date: 01/10 Diagnosed: right ankle pain, right wrist pain *Send message to [place] Clinical Care Coordinators [phone] hungarian documented in this encounter Plan of Treatment Not on file documented as of this encounter Visit Diagnoses Not on filedocumented in this encounter Care Teams Irrigation Equipment Mechanic Relationship Specialty Start Date End Date Malina Mckinney MD [address] [place] [address] PCP - General Family Medicine 05/05/18 documented as of this encounter
[2025-03-15 09:38] LABS: Prothrombin Time Whole Bld POC 38.6 sec (11.1-13.5); ~PT, ~INR - Anti Coag Clinic 3.2 (0.9-1.1)
--- NOTE | 2025-03-15 09:44 | MHC.OFFVISCO ---
Intake Intake Visit Reasons: Anticoagulation Allergies No Known Allergies Allergy (Verified 03/15/25 09:31) Medication List - Last Reconciled 03/15/25 by Isabel Ricks RN chlorhexidine gluconate 0.12% PO metoprolol tartrate 50 mg PO BID warfarin 4 mg See Protocol PO DAILY Nursing Note INR: 3.2 in therapeutic range Medications and supplements reviewed No changes in health, diet, medications, or supplements, Denies any signs and symptoms of bleeding or bruising or clotting. Bleeding, bruising, clotting discussed Nutritional guidance given Dose: keep same dose 4mg mwf/ 6mg x 4 days F/U INR: 3 weeks Patient verbalizes understanding of instructions given with read back order for home meter to PCP Anti-Coag Initial Assessment Social Hx Patient Tobacco Use Status: Never used Tobacco alcohol intake: current Alcohol intake frequency: a few times a week Cardiovascular Hx: Other Lung Disease HX: Other GI Hx: Other Cancer HX: No Psych. 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
== END 2025-03-15 09:47 | disposition home or self-care (01) ==
LOC: HO.ACS 09:19
PROVIDERS: PCP Internal Medicine; Visit Provider Internal Medicine Medical Oncology
DX: Z79.01 Long term (current) use of anticoagulants (principal)

== ENCOUNTER → 2025-03-15 09:19 | Outpatient (BNVA) | payer BC, SELFPAY | PROVIDERS: PCP Internal Medicine; Visit Provider Internal Medicine Medical Oncology | DX: Z95.2 Presence of prosthetic heart valve (principal); Z51.81 Encounter for therapeutic drug level monitoring; Z79.01 Long term (current) use of anticoagulants | CPT/HCPCS: 85610; 99211 ==

== ENCOUNTER 2025-04-03 08:41 | Outpatient (AMB) | payer BC, SELFPAY ==
--- OUTSIDE RECORDS SUMMARY | 2025-04-03 08:57 | XMS_ITS | Encounter Summary ---
Author Organization [employer] Address [address] [facility] 7t [place] [address] Care Team Providers Care Plastic [facility] Products Assembler Name Role Phone Malina Mckinney MD Primary Care Provider + Reason for Visit * Reason Onset Date Comments Hospital Follow-up 01/16/2025 Encounter Details Date Type Department Care Team ([facility] st Contact Info) Description 01/16/2025 Telephone [facility] MEDICINE [address] [place], [place] [phone] Malina Mckinney MD [address] [place] [address] Hospital Follow-up Social History Tobacco Use Types [...] pt requesting a HDF appt. Hospital: [facility] Date of admission: 01/07 Discharge date: 01/10 Diagnosed: right ankle pain, right wrist pain *Send message to [place] Clinical Care Coordinators [phone] citizen of [place] documented in this encounter Plan of Treatment Upcoming Encounters Date Type Department Care Team (Late st Contact Info) Description 07/15/2025 3:15 PM EDT Telemedicine [facility] MEDICINE [address] [place] [address] Malina Mckinney MD [address] [place] [address] documented as of this encounter Visit Diagnoses Not on filedocumented in this encounter Care Teams Plastic Hospital Products Assembler Relationship Specialty Start Date End Date Malina Mckinney MD [address] [place] [address] PCP - General Family Medicine 05/05/18 documented as of this encounter
--- OUTSIDE RECORDS SUMMARY | 2025-04-03 08:57 | XMS_ITS | Encounter Summary ---
Author Organization [employer] Address [address] [facility] 7t [place] [address] Care Team Providers Care Watch Repairer Name Role Phone Malina Mckinney MD Primary Care Provider + Encounter Details Date Type Department Care Team ([facility] st Contact Info) Description 12/19/2023 Abstract [facility] ADULT DENTAL [address] [place], [place] [phone] Thiago, Dalia [address] [place] [address] Social History Tobacco Use Types Packs/Day Years [...] Info) Description 07/15/2025 3:15 PM EDT Telemedicine [facility] MEDICINE 230 [place] [address] Malina Mckinney MD [address] [place] [address] documented as of this encounter Visit Diagnoses Not on filedocumented in this encounter Care Teams Watch Repairer Relationship Specialty Start Date End Date Malina Mckinney MD [address] [place] [address] [phone] PCP - General Family Medicine 05/05/18 documented as of this encounter
--- OUTSIDE RECORDS SUMMARY | 2025-04-03 08:57 | XMS_ITS | Encounter Summary ---
Author Organization [employer] Address [address] [place] [address] 7 [place] [address] Care Team Providers Care Dredge Runner Name Role Phone Malina Mckinney MD Primary Care Provider + Reason for Referral * Imaging (Urgent) - Closed Specialty Diagnoses / Procedures Referred By Contac t Referred To Contact Cardiology Diagnoses Edema of right lower extremity Procedures Vascular US lower extremity venous duplex right Brett Kwon MD [address] [place] [address] Phone: tel: fax: [facility] Referral ID Status Reason Start Date Expiration Date V isits Requested Visits Authorized [id number] Closed Perform Procedure 05/01/2024 05/01/2025 1 1 Encounter Details Date Type Department Care Team (Late st Contact Info) Description 05/01/2024 Orders Only [facility] MED & PEDS [address] [place] [address] Brett Kwon MD [address] [place] [address] Edema of right lower extremity (Primary Dx) [...] Info) Description 07/15/2025 3:15 PM EDT Telemedicine [facility] MED[facility] [address] [place] [address] Malina Mckinney MD [address] [place] [address] documented as of this encounter Procedures Procedure Name Priority Date/Time Associated Diagnosis Comments US VENOUS DUPLEX LE RT Routine 05/02/2024 11:04 AM EDT documented in this encounter Results * US VENOUS DUPLEX LE RT (05/02/2024 11:04 AM EDT) Anatomical Region Laterality Modality Abdomen Ultrasound 05/02/2024 11:0 4 AM EDT Narrative 05/02/2024 2:06 PM EDT ? [facility] ?[address] ?[place] [address] ? Ultrasound Report ? Signed ? Patient: Keisha,Darwin ?MR#: [id number] ?? [id number] ? : 1980 ?Acct:[id number] ? Age/Sex: 43 / M ?ADM Date: 05/02/24 ? Loc: HO.US ? Attending Dr: Brett Kwon MD ? Ordering Physician: Brett Kwon MD ?? Date of Service: 05/02/24 ?? Procedure(s): US venous duplex LE RT ?? Accession Number(s): [id number] ? cc: Brett Kwon MD; Malina Mckinney [...] 1403 ? DD/ 1104 ? TD/TT: ? Manager Of Radiology: SS ? Procedure Note Peewee Malcolm - 05/02/2024 [place] [address] [place] [address] Ultrasound Report Signed Patient: Keisha,Jamie R#: [id number] : 1980Acct:[id number] Age/Sex: 43 / MADM Date: 05/02/24 Loc: HO.US Attending Dr: Brett Kwon MD Ordering Physician: Brett Kwon MD Date of Service: 05/02/24 Procedure(s): US venous duplex LE RT Accession Number(s): [id number] cc: Brett Kwon MD; Malina Mckinney MD [...] in OV> 05/02/24 1403 DD/ 1104 TD/TT: Manager Of Radiology: SS us Brett Kwon MD IMG US PROCEDURES Final Res ult documented in this encounter Visit Diagnoses Diagnosis Edema of right lower extremity- Primary documented in this encounter Care Teams Dredge Runner Relationship Specialty Start Date End Date Malina Mckinney MD [address] [place] [address] PCP - General Family Medicine 05/05/18 documented as of this encounter
--- OUTSIDE RECORDS SUMMARY | 2025-04-03 08:57 | XMS_ITS | Clinical Summary ---
Author Organization [employer] Address [address] [facility] [address] [place] [address] Care Team Providers Care Telephone Instrument Supervisor Name Role Phone Malina Mckinney MD Primary Care Provider + Allergies No known active allergies Medications metoprolol tartrate (Lopressor) 50 MG tablet Take 1 tablet by mouth every 12 (twelve) hours. 06/16/2021 Active warfarin (Coumadin) 6 MG tablet Take 6 mg by mouth. Take 6 mg by mouth on Tuesday, Tuesday, , and Tuesday Active warfarin (Coumadin) 4 MG tablet Take 4 mg by mouth on Tuesday, Tuesday, and Tuesday12/23/2021 Active Active Problems Problem Noted Date Diagnosed [...] -[facility] is on cumadin [facility] INR goal is 2.5-3.5 -Recommend amoxicillin [...] Encounters Date Type Department Care Team Description 03/26/[address] [address] Malina Mckinney MD [place] recall 03/19/[address] [address] Eleonora Jeff RN Lab Orders 03/15/2025 Orders Only GENERIC EXTERNAL DATA DEPARTMENT Provider, Generic External Data 02/27/2025 Orders Only GENERIC EXTERNAL DATA DEPARTMENT Provider, Generic External Data 02/13/2025 Orders Only GENERIC EXTERNAL DATA DEPARTMENT Provider, Generic External Data 02/06/2025 Orders Only GENERIC EXTERNAL DATA DEPARTMENT Provider, Generic External Data 01/30/2025 9:30 AM EDT Office Visit [address] [address] Joanne Grimaldo MD Polyarthritis, inflammatory (CMS/HCC) (Primary Dx); Balanitis 01/30/2025 Travel 01/25/[address] [address] Malina Mckinney MD Chart Prep 01/23/[address] [address] Malina Mckinney MD 01/23/2025 Orders Only GENERIC EXTERNAL DATA DEPARTMENT Provider, Generic External Data 01/18/[address] [address] Malina Mckinney MD Nurse Triage 01/17/[address] [phone] Malina Mckinney MD Referral 01/16/2025 Orders Only [address] [phone] Malina Mckinney MD Polyarthritis, inflammatory (CMS/HCC) (Primary Dx) 01/16/2025 Patient Outreach [address] [phone] Malina Mckinney MD Transition Of Care (Tcm) (HDF- scheduled and SDOH screening negative and Tobacco screening negative) 01/16/2025 Orders Only GENERIC EXTERNAL DATA DEPARTMENT Provider, Generic External Data 01/16/[address] [phone] Malina Mckinney MD Hospital Follow-up 01/11/2025 Orders Only GENERIC EXTERNAL DATA DEPARTMENT Provider, Generic External Data from Last 3 Months Immunizations Immunization Administration Dates Next Due INFLUENZA INJECTABLE QUADRIV [...] 01/30/2025 9:24 AM EDT Plan of Treatment Upcoming Encounters Date Type Department Care Team (Late st Contact Info) Description 07/15/2025 3:15 PM EDT Telemedicine [facility] MEDICINE [address] [place], [place] [phone] Malina Mckinney MD [address] [place], [place] [phone] Health Maintenance Due Date Last Done Comments [...] Comments PROTHROMBIN TIME WHOLE BLD POC Routine 03/15/2025 9:36 AM EDT ~PT, ~INR - ANTI COAG CLINIC Routine 03/15/2025 9:36 AM EDT PROTHROMBIN TIME WHOLE BLD POC Routine 02/27/2025 [...] * (ABNORMAL) PROTHROMBIN TIME WHOLE BLD POC (03/15/2025 9:36 AM EDT) Only the most recent of7 resultswithin the time period is included. Protime 38.6(H) 11.1 - 13.5 sec [facility] 03/15/2025 9:36 AM EDT 03/15/2025 9:37 AM EDT us Generic External Data Provider LAB BLOOD ORDERAB LES Final Result Performing Organization Address City/State/[facility] Co de Phone Number [facility] [address] [place] [phone] * (ABNORMAL) ~PT, ~INR - ANTI COAG CLINIC (03/15/2025 9:36 AM EDT) Only the most recent of7 resultswithin the time period is included. Prothrombin Time INR 3.2(H) 0.9 - 1.1 [facility] Comment:METER #: [id number] TERNATIONAL NORMALIZED RATIO (INR) REFERENCE RANGES Reference RangeFor patients not on anticoagulant therapy: 0.9 - 1.1INR ranges for oral anticoagulanttherapy:For prevention and treatment of venous thrombosis and pulmonary embolism: 2.0 - 3.0For acute myocardial infarction with aspirin therapy: 2.0 - 3.0For acute myocardial infarction without aspirin therapy: 3.0 - 4.0For patients with mechanical prosthetic heart valves: 2.5 - 3.5 03/15/2025 9:36 AM EDT 03/15/2025 9:37 AM EDT us Generic External Data Provider LAB BLOOD ORDERAB LES Final Result Performing Organization Address City/[facility]/ZIP Co de Phone Number [facility] [address] [place] [phone] * (ABNORMAL) Lipid Panel with Reflex to Direct LDL (08/18/2023 9:08 AM EDT) Triglycerides 111 <150 mg/dL [facility] Comment:Desirable Triglyceri de: less than 150 mg/dLBorderline High Triglyceride 150-199 mg/dLHigh Triglyceride: 200-499 mg/dLVery High Triglyceride: greater than or equal to 5OO mg/dL Cholesterol 212(H) <200 mg/dL [facility] Comment:Desirable Cholestero l: less than 200 mg/dLBorderline High Cholesterol: 200-239 mg/dLHigh Cholesterol: greater than 239 mg/dL LDL Cholesterol Calculated 151(H) <100 mg/dL [facility] Comment:Desirable LDL: less than 100 mg/dLNear Optimal/Above Optimal LDL: 110- 129 mg/dLBorderline High LDL: 130-159 mg/dLHigh LDL: 160-189 mg/dLVery High LDL: greater than or equal to 190 mg/dL HDL Cholesterol 39(L) >40 mg/dL [facility] Comment:Desirable HDL: great er than 40 mg/dL Note: This HDL assay may give artificially low results in patients with liver disease. Blood 08/18/2023 9:08 AM EDT 08/18/2023 11:03 AM EDT us Malina Mckinney MD LAB BLOOD ORDERABLES Fin al Result [facility] [address] [place] [phone] from Last 3 Months or Most Recently Relevant to Health Maintenance Insurance [facility] PPO [facility] Care Teams Telephone Instrument Supervisor Relationship Specialty Start Date End Date Malina Mckinney MD [address] [place] [phone] PCP - General Family Medicine 05/05/18
--- OUTSIDE RECORDS SUMMARY | 2025-04-03 08:57 | XMS_ITS | Encounter Summary ---
Author Organization [employer] Address [address] [facility] [address] [place] [address] Care Team Providers Care Fiber Glass Worker Name Role Phone Malina Mckinney MD Primary Care Provider + Reason for Visit * Reason Onset Date Comments INR results 12/07/2023 Encounter Details Date Type Department Care Team ([facility] Contact Info) Description 12/07/2023 Telephone [facility] AD[facility] D[facility]AL [address] [place] [address] America Chirinos, DDS [address] [place] [address] INR results Social History Tobacco Use Types [...] - 12/07/2023 3:53 PM EST Ramya from [facility] is faxing over INR results for patient coming intomorrow 12/08/2023 documented in this encounter Plan of Treatment Upcoming Encounters Date Type Department Care Team (Late st Contact Info) Description 07/15/2025 3:15 PM EDT Telemedicine [facility] MEDICINE [address] [place] [address] Malina Mckinney MD [address] [place] [address] documented as of this encounter Visit Diagnoses Not on filedocumented in this encounter Care Teams Fiber Glass Worker Relationship Specialty Start Date End Date Malina Mckinney MD [address] [place] [address] PCP - General Family Medicine 05/05/18 documented as of this encounter
[2025-04-03 09:43] LABS: Prothrombin Time Whole Bld POC 37.1 sec (11.1-13.5); ~PT, ~INR - Anti Coag Clinic 3.1 (0.9-1.1)
--- NOTE | 2025-04-03 10:09 | MHC.OFFVISCO ---
Intake Intake Visit Reasons: Anticoagulation Allergies No Known Allergies Allergy (Verified 04/03/25 09:32) Medication List - Last Reconciled 04/03/25 by Karolina Mcfadden RN metoprolol tartrate 50 mg PO BID warfarin 4 mg See Protocol PO DAILY Nursing Note INR: 3.1- in therapeutic range of 2.5-3.5 Medications and supplements reviewed-no changes No changes in health, diet, medications, or supplements, Denies any signs and symptoms of bleeding or bruising or clotting. Bleeding, bruising, clotting discussed Nutritional guidance given Dose: 4mg x 3, 6mg x 4 F/U INR: 1 week with home meter Patient verbalizes understanding of instructions given pt here for home meter training. pt tested poc inr x 3, demonstrating good technique with verbal cues. first test - error 5, not enough sample, strategies discussed then pt tested, 3.2, 3.3, 3.3. acs meter 3.1. pt instructed on meter operation, cleaning, error messages, critical inr's, supplies, etc. educational material provided and reviewed with pt. pt called his results to [employer]. knowledge assessment faxed to [employer] Initial Assessment Social Hx Patient Tobacco Use Status: Never used Tobacco alcohol intake: current Alcohol intake frequency: a few times a week Cardiovascular Hx: Other Lung Disease HX: Other GI Hx: Other Cancer HX: No Psych. 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
== END 2025-04-03 10:19 | disposition home or self-care (01) ==
LOC: HO.ACS 08:41
PROVIDERS: PCP Internal Medicine; Visit Provider Internal Medicine Medical Oncology
DX: Z79.01 Long term (current) use of anticoagulants (principal)

== ENCOUNTER → 2025-04-03 08:41 | Outpatient (BNVA) | payer BC, SELFPAY | PROVIDERS: PCP Internal Medicine; Visit Provider Internal Medicine Medical Oncology | DX: Z95.2 Presence of prosthetic heart valve (principal); Z51.81 Encounter for therapeutic drug level monitoring; Z79.01 Long term (current) use of anticoagulants | CPT/HCPCS: 85610; G0248 ==

== ENCOUNTER → 2025-04-10 09:43 | Outpatient (BNVA) | payer BC, SELFPAY | PROVIDERS: PCP Internal Medicine; Visit Provider Internal Medicine Medical Oncology ==

== ENCOUNTER → 2025-04-24 13:05 | Outpatient (BNVA) | payer BC, SELFPAY | PROVIDERS: PCP Internal Medicine; Visit Provider Internal Medicine Medical Oncology ==

== ENCOUNTER → 2025-05-08 11:29 | Outpatient (BNVA) | payer BC, SELFPAY | PROVIDERS: PCP Internal Medicine; Visit Provider Internal Medicine Medical Oncology ==